=== PATIENT | male | born 1960 | race Caucasian/White ===

== ENCOUNTER 2020-05-02 03:19 | Inpatient (IN) | payer MEDICARE, SELFPAY ==
[2020-05-02] VITALS (12 sets, daily range): BP systolic 121–176; BP diastolic 70–90; PULSE 68–96; RESP 16–20; TEMP 36.8–37.1; O2SAT 88–96; BMI 37.8
--- NOTE | 2020-05-02 03:24 | ED_ITS ---
HPI - Abdominal Pain General: Chief Complaint: Abdominal Pain Stated Complaint: ABDOMINAL PAIN/ NAUSEA Time Seen by Provider: 05/02/20 03:23 Source: patient, family and RN notes reviewed Limitations: no limitations History of Present Illness: HPI narrative: This patient is a 59-year-old male with a long history of COPD presents to the emergency department planing of abdominal pain and discomfort. Patient states he started having some nausea and vomiting tonight. Patient states he has been constipated for the past several days and unable to move his bowels. Patient does have a history of alcoholism and chronic pancreatitis. Patient states he normally drinks an ounce to 2 ounces of vodka at least cut way down from his previous drinking episodes. Patient does wear oxygen at 3 L/min by nasal cannula chronically. Patient denies any chest pain. Will do medical evaluation treat as needed MD elicited complaint: abdominal pain and flank pain Pertinent past history: none Onset (ago): day(s) (5) Pain Consistency: intermittent Location: L flank Severity: moderate Associated Symptoms: Reports nausea and vomiting; Denies chills, dysuria and fever(s) Review of Systems General: Reports: 10 or more systems reviewed and unremarkable except in HPI and below Const: Denies: fever(s) or chills Eyes: Denies: change in vision or blurry vision ENMT: Denies: throat pain, hoarseness or mouth pain Card: Denies: chest pain, palpitations, irregular heart rhythm, edema, swelling of feet/ankles or lightheadedness Resp: Denies: dyspnea, productive cough, non-productive cough, wheezing or pain on inspiration GI: Reports: abdominal pain, nausea and vomiting : Denies: dysuria Musc: Denies: neck pain, back pain, extremity pain, extremity swelling, joint pain, joint swelling, joint redness, joint warmth or limited range of motion Skin/Breast: Denies: rash, pruritus, erythema or skin tenderness Neuro: Denies: headache(s), numbness in extremities or weakness in extremities Psych: Denies: anxiety or depression PFSH ED PFSH: Family History Father Cancer CVD (cardiovascular disease) Mother CVD (cardiovascular disease) Hypertension Social History Smoking and tobacco status: current every day smoker cigarettes Years cigarettes smoked: 48 [ Other cigarette details: [id number] ] Quit status (tobacco): considering quitting Second hand smoke exposure: No Smoking risk assessment/counseling performed?: Yes Alcohol intake: current Alcohol intake frequency: holidays/special occasions only Desire information about alcohol rehabilitation?: No Counseling given: No Lives independently: Yes Household members: family Housing: House Marital status: Single service: No Current occupational status: disabled Pets and animals: Yes History of recent travel: No Current gender identity: Male Physical Exam 2 Const: COMMON NORMALS: no acute distress, average body habitus, patient oriented x3, no limitations, healthy appearing, alert and well nourished HENMT: COMMON NORMALS: normocephalic, atraumatic, external ears normal, EAC's normal, TM's normal bilaterally, Normal external nose present and Normal nasal mucous membranes and turbinates present HEAD & SCALP: normocephalic and atraumatic NOSE: Normal external nose present and Normal nasal mucous membranes and turbinates present EXTERNAL EAR: Yes external ears normal EXTERNAL AUDITORY CANAL: EAC's normal TYMPANIC MEMBRANE: TM's normal bilaterally Neck/C-Spine: COMMON NORMALS: full ROM, no lymphadenopathy, supple, no meningeal signs, no JVD, Thyroid normal and No carotid bruits THYROID: Thyroid normal Chest: COMMONS NORMALS: normal inspection of the chest, normal palpation of entire chest wall, normal inspection of the breasts and normal palpation of the breasts Breast/axilla inspection: Yes normal inspection of the breasts BREAST/AXILLA PALPATION: Yes normal palpation of the breasts Resp: COMMON NORMALS: normal respiratory effort, No retractions, No use of accessory muscles, clear to auscultation bilaterally and percussion normal AUSCULTATION: clear to auscultation bilaterally PERCUSSION: percussion normal Cardio: COMMON NORMALS: no JVD, regular rate, regular rhythm, S1 normal heart sound present, S2 normal heart sound present, No gallops present (Cardio), No clicks present (Cardio), No murmurs present (Cardio), No rub (Cardio) and Peripheral pulses 2+ throughout RATE: regular rate RHYTHM: regular rhythm HEART SOUNDS: S1 normal heart sound present and S2 normal heart sound present PERIPHERAL PULSES: Peripheral pulses 2+ throughout GI: COMMON NORMALS: Normal to inspection, nondistended, normoactive bowel sounds present, Soft to palpation, non-tender, No hepatosplenomegaly present, no masses and no bruits PALPATION: Yes Soft to palpation and Yes No hepatosplenomegaly present : COMMON NORMALS: Yes no CVA tenderness BLADDER/KIDNEY EXAM: Yes no CVA tenderness Back/Pelvis: COMMON NORMALS: no CVA tenderness, thoracic and lumbar spine normal to inspection, no thoracic nor lumbar tenderness, thoraco-lumbar ROM normal and straight leg raise negative bilaterally Extremity: COMMON NORMALS: normal to inspection, full ROM, capillary refill normal, no joint enlargement, no clubbing, cyanosis or edema, no calf tenderness and no pedal edema Neuro: COMMON NORMALS: patient oriented x3 SENSORIUM/ORIENTATION: Yes alert MENINGEAL SIGNS: Yes no meningeal signs Course Reevaluation(s): Reevaluation #1: Patient is much improved with pain. Patient's lipase came back at 979. I did discuss with Dr. Moran. She is accepted this patient for admission. Patient states understanding IV fluids will continue to run 150 an hour. Patient be kept n.p.o. Time: 04:48 Vital Signs: Vital signs: Vital Signs Temperature 98.3 F 05/02/20 03:22 Pulse Rate 84 05/02/20 04:28 Respiratory Rate 17 05/02/20 04:28 Blood Pressure 164/81 05/02/20 04:28 Pulse Oximetry 96 05/02/20 04:28 MDM - Abdominal Pain Differential Diagnosis: Differential diagnosis abdominal pain: Likely abdominal pain, acute appendicitis, calculus of kidney and small bowel obstruction Medical Records: Attestation: I reviewed the patient's medical records. Lab Data: Attestation: I reviewed the patient's lab results. Labs: Lab Results 05/02/20 05/02/20 05/02/20 Range/Units 03:35 03:35 03:35 WBC 8.9 (4.0-10.0) 10^3/ uL RBC 4.81 (4.1-5.3) 10^6/u L Hgb 15.6 (11.7-16.6) g/dL Hct 46.6 (42.0-52.0) % MCV 96.9 H (80-94) fL MCH 32.4 (28.0-34.0) pg MCHC 33.5 (30.0-36.0) g/dL RDW 12.6 (12.1-15.1) % Plt Count 137 (130-400) 10^3/c mm MPV 10.5 H (7.4-10.4) fL Neut % (Auto) 75.8 % Lymph % (Auto) 14.3 % Mccracken % (Auto) 7.6 % Eos % (Auto) 1.7 % Baso % (Auto) 0.3 % Neut # (Auto) 6.73 (1.8-7.7) 10^3/u L Lymph # (Auto) 1.3 (0.8-4.8) 10^3/u L Mccracken # (Auto) 0.7 (0.2-0.9) 10^3/u L Eos # (Auto) 0.2 (0.0-0.8) 10^3/u L Baso # (Auto) 0.0 (0.0-0.1) 10^3/u L Nucleated RBC % (a uto) 0 % Nucleated RBCs # 0.0 /100WBC PT 13.90 (12.1-14.9) SECO NDS INR 1.04 (0.8-1.2) APTT 31.1 (23.9-36.7) SECO NDS Sodium 134 L (136-145) mmol/L Potassium 4.3 (3.5-5.1) mmol/L Chloride 93 L (98-107) mmol/L Carbon Dioxide 33 H (22-29) mmol/L Anion Gap 12.3 (5-19) BUN 12 (6-20) mg/dL Creatinine 0.6 L (0.7-1.2) mg/dL GFR Calculation 138.4 H (90-130) mL/min Glucose 265 H (65-115) mg/dL Calculated Osmolal ity 287 (285-295) mOsm/k g Calcium 9.1 (8.5-10.5) mg/dL Total Bilirubin 0.3 (0.15-1.2) mg/dL AST 14 (0-40) U/L ALT 9 (0-41) U/L Alkaline Phosphata se 84 (40-130) IU/L Troponin T Gen 5 n g/L (0-15) ng/L NT-Pro-B Natriuret Pep 825 H (0-125) pg/mL Total Protein 6.9 (6.6-8.7) g/dL Albumin 4.2 (3.5-5.2) g/dL Globulin 2.7 (1.3-4.6) g/dL Lipase 979 H (13-60) U/L / Range/Units 03:35 WBC (4.0-10.0) 10^3/ uL RBC (4.1-5.3) 10^6/u L Hgb (11.7-16.6) g/dL Hct (42.0-52.0) % MCV (80-94) fL MCH (28.0-34.0) pg MCHC (30.0-36.0) g/dL RDW (12.1-15.1) % Plt Count (130-400) 10^3/c mm MPV (7.4-10.4) fL Neut % (Auto) % Lymph % (Auto) % Mccracken % (Auto) % Eos % (Auto) % Baso % (Auto) % Neut # (Auto) (1.8-7.7) 10^3/u L Lymph # (Auto) (0.8-4.8) 10^3/u L Mccracken # (Auto) (0.2-0.9) 10^3/u L Eos # (Auto) (0.0-0.8) 10^3/u L Baso # (Auto) (0.0-0.1) 10^3/u L Nucleated RBC % (a uto) % Nucleated RBCs # /100WBC PT (12.1-14.9) SECO NDS INR (0.8-1.2) APTT (23.9-36.7) SECO NDS Sodium (136-145) mmol/L Potassium (3.5-5.1) mmol/L Chloride (98-107) mmol/L Carbon Dioxide (22-29) mmol/L Anion Gap (5-19) BUN (6-20) mg/dL Creatinine (0.7-1.2) mg/dL GFR Calculation (90-130) mL/min Glucose (65-115) mg/dL Calculated Osmolal ity (285-295) mOsm/k g Calcium (8.5-10.5) mg/dL Total Bilirubin (0.15-1.2) mg/dL AST (0-40) U/L ALT (0-41) U/L Alkaline Phosphata se (40-130) IU/L Troponin T Gen 5 n g/L 25 H (0-15) ng/L NT-Pro-B Natriuret Pep (0-125) pg/mL Total Protein (6.6-8.7) g/dL Albumin (3.5-5.2) g/dL Globulin (1.3-4.6) g/dL Lipase (13-60) U/L Imaging Data ^: CT Abd/Pel: Attestation: I personally reviewed and interpreted this imaging study as follows: My impression: Awaiting official radiologic report. Dr. Moran will follow up. EKG Data ^: EKG 1: Attestation: I personally reviewed and interpreted this EKG as follows: EKG interpretation date: 05/02/20 EKG interpretation time: 03:37 Prior EKG tracings: not available for review Interpretation: Sinus rhythm with a left bundle branch block heart rate 84. Discharge Plan Discharge Patient Disposition: Placed in Observation Clinical Impression: Acute pancreatitis, COPD (chronic obstructive pulmonary disease) Coding Level of Care Code ED Wire Coater for Chg Fwd Exam Comprehensive
--- NOTE | 2020-05-02 03:33 | ECG_ITS ---
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 Measurements Intervals [place] Rate: 84 P: 60 KS: 209 QRS: 3 QRSD: 197 T: 93 QT: 436 QTc: 518 Interpretive Statements SINUS RHYTHM LEFT BUNDLE BRANCH BLOCK [120+ ms QRS DURATION, 80+ ms Q/S IN V1/V2, 85+ ms R IN I/aVL/V5/V6] No previous ECG available for comparison Electronically Signed On 05-03-2020 7:36:31 CDT by Prachi Sheldon M.D. [id number]
[2020-05-02] MEDS: sodium chloride 0.9% 500 ML IV (03:34)
[2020-05-02] MEDS: ondansetron 2 mg/ML SDV 2 mL 4 MG IVP (03:36)
[2020-05-02 03:50] LABS: Basophils % 0.3 %; Eosinophils # 0.2 10^3/uL (0.0-0.8); Eosinophils % 1.7 %; Hematocrit 46.6 % (42.0-52.0); Hemoglobin 15.6 g/dL (11.7-16.6); Lymphocytes # 1.3 10^3/uL (0.8-4.8); Lymphocytes % 14.3 %; Mean Corpuscular HGB Conc 33.5 g/dL (30.0-36.0); Mean Corpuscular Hemoglobin 32.4 pg (28.0-34.0); Mean Corpuscular Volume 96.9 fL (80-94); Mean Platelet Volume 10.5 fL (7.4-10.4); Monocytes # 0.7 10^3/uL (0.2-0.9); Monocytes % 7.6 %; Neutrophils # 6.73 10^3/uL (1.8-7.7); Neutrophils % 75.8 %; Nucleated Red Blood Cells % 0 %; Platelet Count 137 10^3/cmm (130-400); Red Blood Count 4.81 10^6/uL (4.1-5.3); Red Cell Distribution Width 12.6 % (12.1-15.1); White Blood Count 8.9 10^3/uL (4.0-10.0)
--- NOTE | 2020-05-02 03:57 | CTR_ITS ---
PROCEDURE INFORMATION: Exam: CT Abdomen And Pelvis Without Contrast Exam date and time: 05/02/2020 4:08 AM Age: 59 years old Clinical indication: Abdominal pain; Generalized; Additional info: Flank pain TECHNIQUE: Imaging protocol: Computed tomography of the abdomen and pelvis without contrast. Radiation optimization: All CT scans at this facility use at least one of these dose optimization techniques: automated exposure control; mA and/or kV adjustment per patient size (includes targeted exams where dose is matched to clinical indication); or iterative reconstruction. COMPARISON: No relevant prior studies available. RADIATION DOSE METRICS: Total DLP (mGy-cm): 1334.07 FINDINGS: Liver: No mass. Gallbladder and bile ducts: No calcified stones. No ductal dilation. Pancreas: Peripancreatic stranding around the pancreatic head. Spleen: No splenomegaly. Adrenal glands: Normal. No mass. Kidneys and ureters: No hydronephrosis. Stomach and bowel: There is mild wall thickening of the duodenum which may be due to reactive inflammation. No dilated bowel loops. No high-grade obstruction. Appendix: No evidence of appendicitis. Intraperitoneal space: No free air. No significant fluid collection. Vasculature: Atherosclerotic changes of the aorta. Lymph nodes: No enlarged lymph nodes. Urinary bladder: Unremarkable as visualized. Reproductive: Unremarkable as visualized. Bones/joints: Unremarkable. No acute fracture. Soft tissues: Previous hernia repair. CT/CT abdomen pelvis con [id number] IMPRESSION: 1. Peripancreatic stranding around the pancreatic head. There is mild wall thickening of the duodenum this level which may be due to reactive inflammation. Correlation with pancreatic enzymes recommended to exclude pancreatitis. Follow-up after treatment may be helpful to document resolution. 2. Slightly nodular contour of the liver which can be seen with cirrhosis, correlate with LFTs. Radiation Dose CTDIVOL = (mGy): DLP = 1334.07 (mGy-cm)
[2020-05-02] MEDS: morphine 4 mg/mL SDV 1 mL IVP (04:02)
[2020-05-02 04:11] LABS: Troponin T (5th) Once 25 ng/L (0-15)
[2020-05-02 04:20] LABS: Alanine Aminotransferase 9 U/L (0-41); Albumin Level 4.2 g/dL (3.5-5.2); Alkaline Phosphatase 84 IU/L (40-130); Anion Gap 12.3 (5-19); Aspartate Amino Transferase 14 U/L (0-40); Blood Urea Nitrogen 12 mg/dL (6-20); Calcium 9.1 mg/dL (8.5-10.5); Carbon Dioxide 33 mmol/L (22-29); Chloride 93 mmol/L (98-107); Globulin 2.7 g/dL (1.3-4.6); Glomerular Filtration Rate 138.4 mL/min (90-130); Glucose 265 mg/dL (65-115); NT Pro B Type Natriuretic Pept 825 pg/mL (0-125); Osmolality Calculated 287 mOsm/kg (285-295); Potassium 4.3 mmol/L (3.5-5.1); Sodium 134 mmol/L (136-145); Total Bilirubin 0.3 mg/dL (0.15-1.2); Total Protein 6.9 g/dL (6.6-8.7)
[2020-05-02 04:27] LABS: INR 1.04 (0.8-1.2)
[2020-05-02 04:28] LABS: Partial Thromboplastin Time 31.1 SECONDS (23.9-36.7)
[2020-05-02 04:38] LABS: Lipase 979 U/L (13-60)
[2020-05-02] MEDS: sodium chloride 0.9% 1,000 ML 150 ML IV (04:56)
[2020-05-02 05:41] LABS: Glucose Urine UA 4+ (Normal); Protein Urine 1+ (Negative); Specific Gravity, Urine 1.015 (1.005-1.030); Urine Appearance Clear (CLEAR); Urine Color Yellow (Yellow); pH Urine 6 (5-7)
[2020-05-02 05:42] LABS: Add Urine Microscopic? YES; Bilirubin Urine Neg (Negative); Blood Urine Neg (Negative); Ketones Urine 1+ (Negative); Leukocyte Esterase Urine Negative (Negative); Nitrate Urine Negative (Negative); RBC Urine RARE /hpf (0-2); Squamous Epithelial Cell Urine 0-4 /hpf (0-5); Sulfosalicylic Acid Urine Negative (Negative); Urobilinogen Urine Norm (Negative)
[2020-05-02 05:43] LABS: Add Urine Culture? No; Bacteria Urine TRACE /hpf
--- NOTE | 2020-05-02 06:14 | P.HP_ITS ---
Providers/Chief Complaint Admitting Physician: Denae Moran MD Primary Care Provider: Thomas Evangelista Chief Complaint: ABDOMINAL PAIN/ NAUSEA History of Present Illness Amanuel Restrepo is a 59 year old male who presented to the emergency room with chief complaint of abdominal pain. Symptoms have been going on for several days. He has had some dry heaves but no vomiting otherwise. Denies any diarrhea. Last bowel movement was several days ago. He has a history of previous episode of pancreatitis but he actually thought that he may be having issues with an abdominal hernia symptoms. He previously drank heavily but denies regular use for some time. Will have a drink every now and then. None recently. No reports of fever, difficulty urinating, chest pain or increased shortness of breath from baseline. Work-up in the emergency room revealed an elevated lipase at [address] of the abdomen and pelvis demonstrating some stranding around the pancreas. He received some IV fluids and pain medicine in the emergency room and is being admitted for continued care. No recent medication changes to report. Review of Systems Const: Reports: change in appetite; Denies: fever(s) or chills Eyes: Denies: change in vision ENMT: Reports: dry mouth; Denies: throat pain or nasal congestion Card: Denies: chest pain, palpitations or edema Resp: Reports: dyspnea (Chronic), productive cough (Chronic) and wheezing (Sometimes); Denies: non-productive cough GI: Reports: abdominal pain, nausea (With dry heaves), early satiety and constipation; Denies: vomiting, hematemesis, diarrhea, hematochezia or melena : Denies: difficulty urinating or hematuria Musc: Reports: back pain Skin/Breast: Reports: lesions (Left lower extremity); Denies: pruritus Neuro: Denies: weakness in extremities or dizziness Psych: Denies: anxiety or depression Elliot/Lymph: Denies: easy bruising or easy bleeding Medications/Allergies Home Medications Medication Instructions Recorded Confirmed Last Taken Type albuterol sulfate 2.5 mg INHALATION Q4H PRN 02/24/20 04/17/20 Unknown History albuterol sulfate 90 mcg/actuation 2 puff INHALATION QID PRN 02/24/20 04/17/20 Unknown History aerosol inhaler ascorbic acid (vitamin C) 1,000 mg 2 g PO Q6H tab 02/24/20 04/17/20 Unknown History tablet atorvastatin 20 mg tablet 20 mg PO DAILY 02/24/20 04/17/20 Unknown History cyanocobalamin (vitamin B-12) 500 1,000 mcg PO DAILY tab 02/24/20 04/17/20 Unknown History mcg tablet dapagliflozin 10 mg tablet 10 mg PO DAILY 02/24/20 04/17/20 Unknown History insulin glargine 100 unit/mL (3 45 unit SUBCUT .bedtime ml 02/24/20 04/17/20 Unknown History mL) subcutaneous pen levothyroxine 200 mcg capsule 200 mcg PO DAILY 02/24/20 04/17/20 Unknown History lisinopril 20 1 tab PO DAILY 02/24/20 04/17/20 Unknown History mg-hydrochlorothiazide 12.5 mg tablet metformin 500 mg tablet 1,000 mg PO BID tab 02/24/20 04/17/20 Unknown History pioglitazone 45 mg tablet 45 mg PO DAILY 02/24/20 04/17/20 Unknown History tiotropium 2.5 mcg-olodaterol 2.5 2 puff INHALATION DAILY #4 g 04/17/20 04/17/20 Unknown Rx mcg/actuation mist for inhalation Allergies Allergy/AdvReac Type Severity Reaction Status Date / Time dexamethasone AdvReac ADR-Swelling Verified 04/17/20 14:31 of the Eye tobramycin AdvReac ADR-Swelling Verified 04/17/20 14:31 of the Eye PFSH Acute PFSH: Medical History (Updated 05/02/20 @ 07:38 by Denae Moran MD) COPD (chronic obstructive pulmonary disease) Diabetes mellitus Essential hypertension Hyperlipidemia Hypothyroidism Left leg swelling On home oxygen therapy 3L bnc MARTITA (obstructive sleep apnea) On CPAP Pancreatitis Surgical History (Updated 05/02/20 @ 06:31 by Denae Moran MD) History of arthroscopy of knee History of hernia repair History of vasectomy Family History Father Cancer CVD (cardiovascular disease) Mother CVD (cardiovascular disease) Hypertension Social History (Updated 05/02/20 @ 06:36 by Denae Moran MD) Smoking and tobacco status: current every day smoker cigarettes Years cigarettes smoked: 48 [ Other cigarette details: down to 1/2 ppd from 2+ ppd ] Quit status (tobacco): considering quitting Second hand smoke exposure: No Alcohol intake: current Alcohol intake frequency: holidays/special occasions only Alcohol use comment: history of heavy alcohol use in past Lives independently: Yes Household members: family Housing: House Marital status: Single service: No Current occupational status: disabled Pets and animals: Yes History of recent travel: No Current gender identity: Male Vitals/I&O/Wt Last Vital Signs Temp 98.3 F 05/02/20 05:45 Pulse 79 05/02/20 05:45 Resp 18 05/02/20 05:45 BP 143/76 05/02/20 05:45 Pulse Ox 95 05/02/20 05:45 05/01/20 05/01/20 05/02/20 14:59 22:59 06:59 Intake Total 500 / 500 Balance 500 / 500 Weight last 48 hrs Weight 116.12 kg Physical Exam Const: OTHER: Alert, oriented x3, cooperative HENMT: OTHER: Normocephalic atraumatic, moist mucus membranes, some nasal rhinorrhea, poor dentition Eye: OTHER: Pupils equally round and reactive to light, extraocular movements intact Neck/C-Spine: OTHER: Large but supple Resp: OTHER: Scattered wheezes, no rales or rhonchi, no accessory muscle use Cardio: OTHER: Regular rate and rhythm, no murmurs gallops or rubs. 2+ upper extremity pulses, 1+ lower extremity. GI: OTHER: Abdomen soft, rounded, tender to palpation most in the left upper quadrant but also on the right upper quadrant. No rebound or guarding noted. Positive bowel sounds. Extremity: NARRATIVE EXTREMITY EXAM: Left lower extremity is greater in diameter than right lower extremity with some chronic stasis changes noted. 1+ pitting edema to the left lower extremity versus the right lower extremity. Neuro: OTHER: Face symmetric, speech clear, moves all extremities Psych: OTHER: Normal affect Skin: OTHER: Left lower extremity with evidence of stasis dermatitis. Erythema noted but without any warmth. Right lower extremity with dry skin without the degree of stasis dermatitis noted on the left. 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 insulin use: with alf use Diabetes mellitus complication status: with skin complications Diabetes mellitus complication detail: with other skin complication Qualified Code(s): E11.628 - Type 2 diabetes mellitus with other skin complications; 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 (3) Left bundle branch block: No prior EKGs for comparison Status: Acute (4) Essential hypertension: Appears well controlled currently Status: Chronic (5) COPD (chronic obstructive pulmonary disease): Not presently acute Status: Chronic Qualifiers: COPD type: emphysema Emphysema type: unspecified Qualified Code(s): J43.9 - Emphysema, unspecified (6) MARTITA (obstructive sleep apnea): Chronically on CPAP Status: Chronic (7) Hyperlipidemia: Chronically on statin Status: Chronic Qualifiers: Hyperlipidemia type: unspecified Qualified Code(s): E78.5 - Hyperlipidemia, unspecified (8) Hypothyroidism: Status: Chronic Qualifiers: Hypothyroidism type: acquired Qualified Code(s): E03.9 - Hypothyroidism, unspecified (9) Left leg swelling: Patient reports chronic in nature without recent change, has associated dermatitis Status: Chronic (10) Nicotine dependence, cigarettes, with other nicotine-induced disorders: Has significantly cut down on amount of smoking Status: Chronic (11) On home oxygen therapy: 3 L by nasal cannula continuous Status: Chronic Additional A&P Information Observation admission presently IV fluids Recheck laboratory studies in the morning Clear liquid diet Sliding scale insulin currently Check hemoglobin A1c in the morning Holding oral Metformin, pioglitazone and dapagliflozin Currently holding home lisinopril/HCTZ and simvastatin Continue albuterol Continue oral levothyroxine CPAP at night with nasal mask Continue home oxygen Pepcid for GI prophylaxis Lovenox for DVT prophylaxis Pain control as needed Stool softeners Nicotine patch if needed Plans were discussed with patient and he was given opportunity to ask questions Attestations Medical Necessity Statement*: Currently anticipated stay less than 2 midnights in a gentleman with a history of alcoholic pancreatitis presenting with abdominal pain, nausea and found to have elevated lipase and findings on CT imaging suggestive of acute pancreatitis. He is already feeling better with fluids and pain medications administered in the emergency room. We will continue IV fluids and monitoring for any further change. Other issues and plans as noted above. At significant risk for continued decline without aggressive intervention as described. 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 insulin use: with quality assurance/r&d lab technician use Diabetes mellitus complication status: with skin complications Diabetes mellitus complication detail: with other skin complication Left bundle branch block I44.7 Essential hypertension I10 COPD (chronic obstructive pulmonary disease) J43.9 COPD type: emphysema Emphysema type: unspecified MARTITA (obstructive sleep apnea) G47.33 Hyperlipidemia E78.5 Hyperlipidemia type: unspecified Hypothyroidism E03.9 Hypothyroidism type: acquired Left leg swelling M79.89 Nicotine dependence, cigarettes, with other nicotine-induced disorders F17.218 On home oxygen therapy Z99.81
--- NOTE | 2020-05-02 07:27 | PC.NURSE ---
AM ASSESSMENT NOTE NOTED PT TO HAVE VERY POOR HYGIENE - FOUL ODOR IN GENERAL FROM PT - DIRT UNDERNEATH ALL FINGERNAILS - STEWART FEET NOTED TO HAVE HARD CALLOUSED AREAS WITH DIRT NOTED - PT STATES HE LIVES AT HOME
[2020-05-02 07:55] LABS: Glucose Point of Care 213 mg/dL (70-110)
--- NOTE | 2020-05-02 08:35 | PC.PHAR ---
Addendum entered by Renay Cristobal 05/02/20 08:41: pt states his dr dced the farxiga 2-3 months ago Original Note: pt states he takes care of his own medications-pt states he had a build up on some of his medications so he hasnt filled for a while-pt states he dced his actos 2-3 months ago-pt states he also takes metformin 1000mg daily-rx last filled on 06/08/19 30d/s for 1000mg bid-pt states he hasnt picked up his stiolto respimat yet rx written on 04/17/20- ext med history shows pts levothyroxine, lantus, and lipitor last filled on 02/24/20-pt states he is still taking lisinopril-hctz ext med history shows last filled on 10/20/19 90d/s-pt states he may take his vitamin b12 two to three times a week
[2020-05-02] MEDS: sodium chlor 0.9% + KCl 20 mEq 20 MEQ/1,000 ML BAG 100 MEQ IV ×2 (08:37→18:02)
[2020-05-02] MEDS: enoxaparin 40 mg/0.4 mL Syringe SUBCUT (08:38)
[2020-05-02] MEDS: sennosides-docusate Tablet 2 TAB PO ×2 (08:39→17:03)
[2020-05-02] MEDS: famotidine 20 mg/2 mL INJ IVP ×2 (08:39→18:02)
[2020-05-02] MEDS: HYDROcodone-acetaminophen 5-325 mg Tablet 1 TAB PO ×2 (08:46→18:42)
[2020-05-02 09:03] LABS: Troponin(5th) Baseline 20 ng/L (0-15)
--- NOTE | 2020-05-02 09:35 | ECG_ITS ---
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 Measurements Intervals [place] Rate: 68 P: 43 RI: 172 QRS: 4 QRSD: 192 T: 106 QT: 460 QTc: 490 Interpretive Statements SINUS RHYTHM LEFT BUNDLE BRANCH BLOCK [120+ ms QRS DURATION, 80+ ms Q/S IN V1/V2, 85+ ms R IN I/aVL/V5/V6] Compared to ECG 05/02/2020 03:37:08 No significant changes Electronically Signed On 05-03-2020 7:48:43 CDT by Prachi Sheldon M.D. [id number]
--- NOTE | 2020-05-02 09:53 | PC.CHAP ---
Pastoral Care Encounter/Spiritual Assessment Type of Contact [] Declined rug repairer visit [] Patient/Family/Request visit [] Outpatient visit [] Follow-up visit [] Physician referral [] Code/Alert [x] Routine visit [] Staff referral [] Actively dying [] Patient sleeping [] Family support [] [] Out of room [] Palliative care [] [] Receiving care in room [] Pre-surgical visit [] Trauma [] Long length of stay [] ICU visit [] Other: Relational/Emotional Strength [] Patient feels connected with others/family/visitors/staff [] Distress [] Loneliness/isolation [] Abandonment Spirituality of Patient [] Person of [place] [] Attends Episcopal of their [place] [] Believes in Prayer [] Reads Bible or Jain materials [x] There are Spiritual issues to be addressed [employer] 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 Interventions [] Prayer [] Active listening [] Non-anxious presence [] Spiritual/emotional support [] Crisis/trauma care [] Spiritual counseling [] Bereavement support [] Provided bereavement packet [] Provided Bible/devotional materials [] Provided toy/stuffed animal, coloring book to patient or family member [] Provided Communion [] Anointing/[place]ove [] Salvation [x] Completed spiritual assessment [] Other: Impact on Illness or Injury [] Angry [] Fearful [] Anxious [] Often cries [] Exhaustion [] Unable to work [] Unable to attend congregation [] Unable to walk/stand [] Unable to read [] Unable to drive [] Unable to eat/drink [] Unable to sleep [] Unable to be with family [] Patient intubated [] Other: Summary refused prayer Time spent with patient
[2020-05-02 10:57] LABS: Glucose Point of Care 205 mg/dL (70-110)
[2020-05-02 11:14] LABS: Troponin 5 2HR 21.48 ng/L (0-15); Troponin 5 2HR Delta 1.48 ABS# (0-10)
--- NOTE | 2020-05-02 13:35 | ECG_ITS ---
[facility] ED Test Date: 2020-05-02 Pat Name: Amanuel Restrepo Department: Room: 277 Gender: Male Personnel Recruiter: : 1960 Requested By: Denae Moran Order Number: [id number] Ish MD: Prachi Sheldon M.D. Measurements Intervals [place] Rate: 66 P: 40 NE: 160 QRS: 6 QRSD: 194 T: 205 QT: 478 QTc: 503 Interpretive Statements SINUS RHYTHM LEFT BUNDLE BRANCH BLOCK [120+ ms QRS DURATION, 80+ ms Q/S IN V1/V2, 85+ ms R IN I/aVL/V5/V6] Compared to ECG 05/02/2020 09:29:31 No significant changes Electronically Signed On 05-03-2020 7:46:18 CDT by Prachi Sheldon M.D. [id number]
--- NOTE | 2020-05-02 13:45 | PM.PN ---
Subjective Subjective: Interval history: Patient was seen and examined this morning.He is still complaining of generalized abdominal pain as well as nausea.Says he is not ready to advance his diet. His other vitals and labs have been reviewed. Medications: Reviewed: Yes Vitals/I&O/Wt Last Vital Signs Temp 98.3 F 05/02/20 11:17 Pulse 72 05/02/20 11:17 Resp 18 05/02/20 11:17 BP 126/72 05/02/20 11:17 Pulse Ox 95 05/02/20 11:17 05/01/20 05/02/20 05/02/20 22:59 06:59 14:59 Intake Total 500 / 500 120 / 120 Output Total 550 / 550 Balance 500 / 500 -430 / -430 Weight last 48 hrs Weight 116.12 kg Physical Exam Const: COMMON NORMALS: patient oriented x3 HENMT: COMMON NORMALS: normocephalic and atraumatic HEAD & SCALP: normocephalic and atraumatic Resp: COMMON NORMALS: clear to auscultation bilaterally EFFORT & INSPECTION: Yes symmetric chest movement AUSCULTATION: clear to auscultation bilaterally Cardio: COMMON NORMALS: regular rate, regular rhythm, S1 normal heart sound present, S2 normal heart sound present, No gallops present (Cardio), No murmurs present (Cardio), No rub (Cardio) and Peripheral pulses 2+ throughout RATE: regular rate RHYTHM: regular rhythm HEART SOUNDS: S1 normal heart sound present and S2 normal heart sound present PERIPHERAL PULSES: Peripheral pulses 2+ throughout GI: COMMON NORMALS: Normal to inspection, nondistended, normoactive bowel sounds present AUSCULTATION: Yes normoactive bowel sounds RECTAL EXAM: Yes deferred OTHER: generalized abdominal tenderness Present no guarding or rigidity. Extremity: COMMON NORMALS: no clubbing, cyanosis or edema and no pedal edema Neuro: COMMON NORMALS: patient oriented x3 Data : 05/02/20 03:35 05/02/20 03:35 A&P Assessment and plan (1) Acute pancreatitis: Status: Acute Qualifiers: Acute pancreatitis complication: no infection or necrosis Pancreatitis type: alcohol induced Qualified Code(s): K85.20 - Alcohol induced acute pancreatitis without necrosis or infection (2) Diabetes mellitus: Type II, insulin requiring Status: Chronic Qualifiers: Diabetes mellitus type: type 2 Diabetes mellitus terminal gauger supervisor insulin use: with terminal gauger supervisor use Diabetes mellitus complication status: with skin complications Diabetes mellitus complication detail: with other skin complication Qualified Code(s): E11.628 - Type 2 diabetes mellitus with other skin complications; Z79.4 - M[facility] (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 of insulin (3) Left bundle branch block: No prior EKGs for comparison Status: Acute (4) Essential hypertension: Appears well controlled currently Status: Chronic (5) COPD (chronic obstructive pulmonary disease): Not presently acute Status: Chronic Qualifiers: COPD type: emphysema Emphysema type: unspecified Qualified Code(s): J43.9 - Emphysema, unspecified (6) MARTITA (obstructive sleep apnea): Chronically on CPAP Status: Chronic (7) Hyperlipidemia: Chronically on statin Status: Chronic Qualifiers: Hyperlipidemia type: unspecified Qualified Code(s): E78.5 - Hyperlipidemia, unspecified (8) Hypothyroidism: Status: Chronic Qualifiers: Hypothyroidism type: acquired Qualified Code(s): E03.9 - Hypothyroidism, unspecified (9) Left leg swelling: Patient reports chronic in nature without recent change, has associated dermatitis Status: Chronic (10) Nicotine dependence, cigarettes, with other nicotine-induced disorders: Has significantly cut down on amount of smoking Status: Chronic (11) On home oxygen therapy: 3 L by nasal cannula continuous Status: Chronic Additional A&P Information Ac Pancreatitis Continue IV fluids Clear liquid diet Sliding scale insulin currently Continue albuterol Continue oral levothyroxine CPAP at night with nasal mask Continue home oxygen Pepcid for GI prophylaxis Lovenox for DVT prophylaxis Pain control as needed Stool softeners Nicotine patch if needed Plans were discussed with patient and he was given opportunity to ask questions Attestations Medical Necessity Statement*: Patient needs to be in hospital for the management of acute Pancreatitis and the need for I.V Hydration. 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 [facility] Fwd Diagnoses Acute pancreatitis K85.20 Acute pancreatitis complication: no infection or necrosis Pancreatitis type: alcohol induced Diabetes mellitus E11.628; Z79.4 Diabetes mellitus type: type 2 Diabetes mellitus terminal gauger supervisor insulin use: with terminal gauger supervisor use Diabetes mellitus complication status: with skin complications Diabetes mellitus complication detail: with other skin complication Left bundle branch block I44.7 Essential hypertension I10 COPD (chronic obstructive pulmonary disease) J43.9 COPD type: emphysema Emphysema type: unspecified MARTITA (obstructive sleep apnea) G47.33 Hyperlipidemia E78.5 Hyperlipidemia type: unspecified Hypothyroidism E03.9 Hypothyroidism type: acquired Left leg swelling M79.89 Nicotine dependence, cigarettes, with other nicotine-induced disorders F17.218 On home oxygen therapy Z99.81
[2020-05-02 15:10] LABS: Troponin 5 6HR 23.36 ng/L (0-15); Troponin 5 6HR Delta 3.36 ng/L (0-12)
[2020-05-02 16:41] LABS: Glucose Point of Care 116 mg/dL (70-110)
[2020-05-02 20:48] LABS: Glucose Point of Care 140 mg/dL (70-110)
[2020-05-02] MEDS: insulin glargine 100 units/1 mL 10 UNIT SUBCUT (20:50)
[2020-05-02] MEDS: acetaminophen 325 mg Tablet 650 MG PO (20:55)
[2020-05-03] VITALS (8 sets, daily range): BP systolic 116–150; BP diastolic 60–81; PULSE 64–77; RESP 18; TEMP 36.6–37.4; O2SAT 92–96
[2020-05-03] MEDS: HYDROcodone-acetaminophen 5-325 mg Tablet 1 TAB PO ×3 (01:09→22:11)
[2020-05-03] MEDS: sodium chlor 0.9% + KCl 20 mEq 20 MEQ/1,000 ML BAG 100 MEQ IV ×3 (03:41→22:13)
[2020-05-03 05:49] LABS: Basophils % 0.4 %; Eosinophils # 0.2 10^3/uL (0.0-0.8); Hematocrit 41.7 % (42.0-52.0); Hemoglobin 13.4 g/dL (11.7-16.6); Lymphocytes # 1.5 10^3/uL (0.8-4.8); Lymphocytes % 20.5 %; Mean Corpuscular HGB Conc 32.1 g/dL (30.0-36.0); Mean Corpuscular Hemoglobin 32.8 pg (28.0-34.0); Mean Platelet Volume 10.6 fL (7.4-10.4); Monocytes # 0.8 10^3/uL (0.2-0.9); Monocytes % 10.5 %; Neutrophils # 4.86 10^3/uL (1.8-7.7); Neutrophils % 66.3 %; Nucleated Red Blood Cells % 0 %; Platelet Count 122 10^3/cmm (130-400); Red Blood Count 4.09 10^6/uL (4.1-5.3); Red Cell Distribution Width 12.8 % (12.1-15.1); White Blood Count 7.3 10^3/uL (4.0-10.0)
[2020-05-03] MEDS: famotidine 20 mg/2 mL INJ IVP ×2 (06:00→17:22)
[2020-05-03] MEDS: levothyroxine 200 mcg Tablet PO (06:10)
[2020-05-03 06:13] LABS: Alanine Aminotransferase 7 U/L (0-41); Albumin Level 3.3 g/dL (3.5-5.2); Alkaline Phosphatase 58 IU/L (40-130); Blood Urea Nitrogen 10 mg/dL (6-20); Calcium 8.7 mg/dL (8.5-10.5); Carbon Dioxide 34 mmol/L (22-29); Glomerular Filtration Rate 115.8 mL/min (90-130); Glucose 127 mg/dL (65-115); Osmolality Calculated 277 mOsm/kg (285-295); Sodium 133 mmol/L (136-145); Total Bilirubin 0.4 mg/dL (0.15-1.2); Total Protein 6.3 g/dL (6.6-8.7)
[2020-05-03 06:16] LABS: Aspartate Amino Transferase 14 U/L (0-40); Potassium 5.1 mmol/L (3.5-5.1)
[2020-05-03 06:17] LABS: Anion Gap 9.1 (5-19); Chloride 95 mmol/L (98-107); Lipase 85 U/L (13-60)
[2020-05-03 06:18] LABS: Magnesium 1.8 mg/dL (1.7-2.3); Phosphorus 3.4 mg/dL (2.5-4.5)
[2020-05-03] MEDS: enoxaparin 40 mg/0.4 mL Syringe SUBCUT (06:22)
[2020-05-03] MEDS: ondansetron 2 mg/ML SDV 2 mL 4 MG IVP ×2 (06:26→20:30)
[2020-05-03 06:46] LABS: Glucose Point of Care 115 mg/dL (70-110)
[2020-05-03 07:05] LABS: Estmated Average Glucose 246; Hemoglobin A1C 10.2 % (4.0-6.0)
[2020-05-03] MEDS: sennosides-docusate Tablet 2 TAB PO ×2 (08:47→17:22)
--- NOTE | 2020-05-03 10:34 | PC.NURSE ---
CHARGE NURSE CHARGE NURSE AT PTS SIDE WITH C/O DR - RESOLVING ISSUE WITH
[2020-05-03 10:45] LABS: Glucose Point of Care 135 mg/dL (70-110)
--- NOTE | 2020-05-03 11:33 | PM.PN ---
Subjective Subjective: Interval history: Patient was seen and examined this morning.He is still complaining of generalized abdominal pain as well as nausea.Says he is not ready to advance his diet. His other vitals and labs have been reviewed. Medications: Reviewed: Yes Vitals/I&O/Wt Last Vital Signs Temp 97.9 F 05/03/20 11:10 Pulse 72 05/03/20 11:10 Resp 18 05/03/20 11:10 BP 131/74 05/03/20 11:10 Pulse Ox 92 05/03/20 11:10 05/02/20 05/03/20 05/03/20 22:59 06:59 14:59 Intake Total 1061.667 / 2181.667 1190 / 3371.667 120 / 120 Output Total 490 / 1040 150 / 150 Balance 1061.667 / 1631.667 700 / 2331.667 -30 / -30 Weight last 48 hrs Weight 116.12 kg Physical Exam Const: COMMON NORMALS: patient oriented x3 HENMT: COMMON NORMALS: normocephalic and atraumatic HEAD & SCALP: normocephalic and atraumatic Resp: COMMON NORMALS: clear to auscultation bilaterally EFFORT & INSPECTION: Yes symmetric chest movement AUSCULTATION: clear to auscultation bilaterally Cardio: COMMON NORMALS: regular rate, regular rhythm, S1 normal heart sound present, S2 normal heart sound present, No gallops present (Cardio), No murmurs present (Cardio), No rub (Cardio) and Peripheral pulses 2+ throughout RATE: regular rate RHYTHM: regular rhythm HEART SOUNDS: S1 normal heart sound present and S2 normal heart sound present PERIPHERAL PULSES: Peripheral pulses 2+ throughout GI: COMMON NORMALS: Normal to inspection, nondistended, normoactive bowel sounds present AUSCULTATION: Yes normoactive bowel sounds RECTAL EXAM: Yes deferred OTHER: generalized abdominal tenderness Present no guarding or rigidity. Extremity: COMMON NORMALS: no clubbing, cyanosis or edema and no pedal edema Neuro: COMMON NORMALS: patient oriented x3 Data : 05/03/20 05:23 05/03/20 05:23 A&P Assessment and plan (1) Acute pancreatitis: Ac Pancreatitis Continue IV fluids Clear liquid diet Pain control Status: Acute Qualifiers: Acute pancreatitis complication: no infection or necrosis Pancreatitis type: alcohol induced Qualified Code(s): K85.20 - Alcohol induced acute pancreatitis without necrosis or infection (2) Diabetes mellitus: Type II, insulin requiring Status: Chronic Qualifiers: Diabetes mellitus type: type 2 Diabetes mellitus tax appraiser insulin use: with care home use Diabetes mellitus complication status: with skin complications Diabetes mellitus complication detail: with other skin complication Qualified Code(s): E11.628 - Type 2 diabetes mellitus with other skin complications; Z79.4 - slot machine key person (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 of insulin (3) Left bundle branch block: No prior EKGs for comparison Status: Acute (4) Essential hypertension: Appears well controlled currently Status: Chronic (5) COPD (chronic obstructive pulmonary disease): Not presently acute Status: Chronic Qualifiers: COPD type: emphysema Emphysema type: unspecified Qualified Code(s): J43.9 - Emphysema, unspecified (6) MARTITA (obstructive sleep apnea): Chronically on CPAP Status: Chronic (7) Hyperlipidemia: Chronically on statin Status: Chronic Qualifiers: Hyperlipidemia type: unspecified Qualified Code(s): E78.5 - Hyperlipidemia, unspecified (8) Hypothyroidism: Status: Chronic Qualifiers: Hypothyroidism type: acquired Qualified Code(s): E03.9 - Hypothyroidism, unspecified (9) Left leg swelling: Patient reports chronic in nature without recent change, has associated dermatitis Status: Chronic (10) Nicotine dependence, cigarettes, with other nicotine-induced disorders: Has significantly cut down on amount of smoking Status: Chronic (11) On home oxygen therapy: 3 L by nasal cannula continuous Status: Chronic Additional A&P Information Sliding scale insulin currently Continue albuterol Continue oral levothyroxine CPAP at night with nasal mask Continue home oxygen Pepcid for GI prophylaxis Lovenox for DVT prophylaxis Stool softeners Nicotine patch if needed Attestations Medical Necessity Statement*: Patient needs to be in hospital for management of acute pancreatitis. 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 [facility] Fwd Diagnoses Acute pancreatitis K85.20 Acute pancreatitis complication: no infection or necrosis Pancreatitis type: alcohol induced Diabetes mellitus E11.628; Z79.4 Diabetes mellitus type: type 2 Diabetes mellitus tax appraiser insulin use: with tax appraiser use Diabetes mellitus complication status: with skin complications Diabetes mellitus complication detail: with other skin complication Left bundle branch block I44.7 Essential hypertension I10 COPD (chronic obstructive pulmonary disease) J43.9 COPD type: emphysema Emphysema type: unspecified MARTITA (obstructive sleep apnea) G47.33 Hyperlipidemia E78.5 Hyperlipidemia type: unspecified Hypothyroidism E03.9 Hypothyroidism type: acquired Left leg swelling M79.89 Nicotine dependence, cigarettes, with other nicotine-induced disorders F17.218 On home oxygen therapy Z99.81
[2020-05-03] MEDS: acetaminophen 325 mg Tablet 650 MG PO (15:45)
[2020-05-03 16:53] LABS: Glucose Point of Care 103 mg/dL (70-110)
[2020-05-03 20:31] LABS: Glucose Point of Care 120 mg/dL (70-110)
[2020-05-03] MEDS: insulin glargine 100 units/1 mL 10 UNIT SUBCUT (22:04)
[2020-05-04] VITALS (12 sets, daily range): BP systolic 134–152; BP diastolic 76–87; PULSE 64–78; RESP 16–18; TEMP 36.3–37.2; O2SAT 93–98
[2020-05-04] MEDS: acetaminophen 325 mg Tablet 650 MG PO (03:09)
[2020-05-04] MEDS: famotidine 20 mg/2 mL INJ IVP (06:08)
[2020-05-04 06:40] LABS: Glucose Point of Care 245 mg/dL (70-110)
[2020-05-04] MEDS: enoxaparin 40 mg/0.4 mL Syringe SUBCUT (06:42)
[2020-05-04] MEDS: levothyroxine 200 mcg Tablet PO (06:42)
[2020-05-04] MEDS: sodium chlor 0.9% + KCl 20 mEq 20 MEQ/1,000 ML BAG 100 MEQ IV (08:08)
[2020-05-04] MEDS: sennosides-docusate Tablet 2 TAB PO (08:10)
[2020-05-04] MEDS: ondansetron 2 mg/ML SDV 2 mL 4 MG IVP ×2 (10:20→18:23)
[2020-05-04 11:19] LABS: Glucose Point of Care 83 mg/dL (70-110)
--- NOTE | 2020-05-04 12:12 | PM.PN ---
Subjective Subjective: Interval history: Patients abdominal pain is slightly improved, willing to try and eat advance diet. Was concerned about his umbilical hernia, contributing to the pain. Medications: Reviewed: Yes Vitals/I&O/Wt Last Vital Signs Temp 97.4 F L 05/04/20 12:00 Pulse 64 05/04/20 12:00 Resp 16 05/04/20 12:00 BP 135/80 05/04/20 12:00 Pulse Ox 96 05/04/20 12:00 05/03/20 05/04/20 05/04/20 22:59 06:59 14:59 Intake Total 1220 / 2553.333 1471.667 / 1471.667 Output Total 800 / 950 1150 / 2100 900 / 900 Balance 420 / 1603.333 -1150 / 453.333 571.667 / 571.667 Physical Exam Const: COMMON NORMALS: patient oriented x3 HENMT: COMMON NORMALS: normocephalic and atraumatic HEAD & SCALP: normocephalic and atraumatic Resp: COMMON NORMALS: clear to auscultation bilaterally EFFORT & INSPECTION: Yes symmetric chest movement AUSCULTATION: clear to auscultation bilaterally Cardio: COMMON NORMALS: regular rate, regular rhythm, S1 normal heart sound present, S2 normal heart sound present, No gallops present (Cardio), No murmurs present (Cardio), No rub (Cardio) and Peripheral pulses 2+ throughout RATE: regular rate RHYTHM: regular rhythm HEART SOUNDS: S1 normal heart sound present and S2 normal heart sound present PERIPHERAL PULSES: Peripheral pulses 2+ throughout GI: COMMON NORMALS: Normal to inspection, nondistended, normoactive bowel sounds present AUSCULTATION: Yes normoactive bowel sounds RECTAL EXAM: Yes deferred OTHER: generalized abdominal tenderness improved: no guarding or rigidity. Extremity: COMMON NORMALS: no clubbing, cyanosis or edema and no pedal edema Neuro: COMMON NORMALS: patient oriented x3 Data : 05/03/20 05:23 05/03/20 05:23 A&P Assessment and plan (1) Acute pancreatitis: Ac Pancreatitis Continue IV fluids Clear liquid diet. Advance diet as tolerated Pain control Status: Acute Qualifiers: Acute pancreatitis complication: no infection or necrosis Pancreatitis type: alcohol induced Qualified Code(s): K85.20 - Alcohol induced acute pancreatitis without necrosis or infection (2) Diabetes mellitus: Type II, insulin requiring Status: Chronic Qualifiers: Diabetes mellitus type: type 2 Diabetes mellitus intermediate insulin use: with training administrator use Diabetes mellitus complication status: with skin complications Diabetes mellitus complication detail: with other skin complication Qualified Code(s): E11.628 - Type 2 diabetes mellitus with other skin complications; Z79.4 - care home (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 of insulin (3) Left bundle branch block: No prior EKGs for comparison Status: Acute (4) Essential hypertension: Appears well controlled currently Status: Chronic (5) COPD (chronic obstructive pulmonary disease): Not presently acute Status: Chronic Qualifiers: COPD type: emphysema Emphysema type: unspecified Qualified Code(s): J43.9 - Emphysema, unspecified (6) MARTITA (obstructive sleep apnea): Chronically on CPAP Status: Chronic (7) Hyperlipidemia: Chronically on statin Status: Chronic Qualifiers: Hyperlipidemia type: unspecified Qualified Code(s): E78.5 - Hyperlipidemia, unspecified (8) Hypothyroidism: Status: Chronic Qualifiers: Hypothyroidism type: acquired Qualified Code(s): E03.9 - Hypothyroidism, unspecified (9) Left leg swelling: Patient reports chronic in nature without recent change, has associated dermatitis Status: Chronic (10) Nicotine dependence, cigarettes, with other nicotine-induced disorders: Has significantly cut down on amount of smoking Status: Chronic (11) On home oxygen therapy: 3 L by nasal cannula continuous Status: Chronic Additional A&P Information Sliding scale insulin currently Continue albuterol Continue oral levothyroxine CPAP at night with nasal mask Continue home oxygen Pepcid for GI prophylaxis Lovenox for DVT prophylaxis Stool softeners Nicotine patch if needed Attestations Medical Necessity Statement*: Patient needs to be in hospital for management of acute pancreatitis. Coding Level of Care Code Acute Plant Manager for [facility] Fwd Diagnoses Acute pancreatitis K85.20 Acute pancreatitis complication: no infection or necrosis Pancreatitis type: alcohol induced Diabetes mellitus E11.628; Z79.4 Diabetes mellitus type: type 2 Diabetes mellitus intermediate insulin use: with training administrator use Diabetes mellitus complication status: with skin complications Diabetes mellitus complication detail: with other skin complication Left bundle branch block I44.7 Essential hypertension I10 COPD (chronic obstructive pulmonary disease) J43.9 COPD type: emphysema Emphysema type: unspecified MARTITA (obstructive sleep apnea) G47.33 Hyperlipidemia E78.5 Hyperlipidemia type: unspecified Hypothyroidism E03.9 Hypothyroidism type: acquired Left leg swelling M79.89 Nicotine dependence, cigarettes, with other nicotine-induced disorders F17.218 On home oxygen therapy Z99.81
[2020-05-04] MEDS: HYDROcodone-acetaminophen 5-325 mg Tablet 1 TAB PO (13:09)
[2020-05-04] MEDS: morphine 4 mg/mL SDV 1 mL IVP ×2 (15:06→21:41)
[2020-05-04 17:25] LABS: Glucose Point of Care 106 mg/dL (70-110)
--- NOTE | 2020-05-04 18:59 | PC.NURSE ---
Report to Meghna CURTIS at this time.
[2020-05-04 20:43] LABS: Glucose Point of Care 158 mg/dL (70-110)
[2020-05-04] MEDS: famotidine 20 mg Tablet PO (21:41)
[2020-05-04] MEDS: insulin glargine 100 units/1 mL 10 UNIT SUBCUT (21:41)
[2020-05-04] MEDS: albuterol 8 gm MDI 2 PUFF INHALATION (22:25)
[2020-05-05] VITALS (10 sets, daily range): BP systolic 126–166; BP diastolic 71–85; PULSE 63–85; RESP 16–19; TEMP 36.4–36.9; O2SAT 91–96
[2020-05-05] MEDS: HYDROcodone-acetaminophen 5-325 mg Tablet 1 TAB PO (05:05)
[2020-05-05] MEDS: levothyroxine 200 mcg Tablet PO (05:05)
[2020-05-05 06:47] LABS: Glucose Point of Care 108 mg/dL (70-110)
[2020-05-05] MEDS: albuterol 8 gm MDI 2 PUFF INHALATION ×2 (08:45→21:36)
[2020-05-05] MEDS: enoxaparin 40 mg/0.4 mL Syringe SUBCUT (09:21)
[2020-05-05] MEDS: ondansetron 2 mg/ML SDV 2 mL 4 MG IVP ×2 (09:24→18:12)
--- NOTE | 2020-05-05 09:56 | PC.NURSE ---
Patient is requesting to be hooked back up to his fluids. Patient did eat breakfast but states that he is having nausea now. Patient did state that he was able to eat a snack overnight without nausea.
[2020-05-05] MEDS: sodium chloride 0.9% 1,000 ML 50 ML IV (10:35)
[2020-05-05 11:20] LABS: Glucose Point of Care 190 mg/dL (70-110)
--- NOTE | 2020-05-05 14:26 | PC.SOCIAL ---
*IMM UPDATE* construction quality control manager gave patient IMM update. Provided patient copy of page 2. 05/05/20 @ 0914 Initialed, dated, timed and placed in chart.
[2020-05-05 16:52] LABS: Glucose Point of Care 145 mg/dL (70-110)
--- NOTE | 2020-05-05 19:25 | PC.NURSE ---
Report to Meghna CURTIS at this time.
[2020-05-05 20:35] LABS: Glucose Point of Care 217 mg/dL (70-110)
--- NOTE | 2020-05-05 21:21 | P.PN_ITS ---
Subjective Subjective: Interval history: Patients abdominal pain is slightly improved, is intermittently trying to eat more regular foods. Medications: Reviewed: Yes Vitals/I&O/Wt Last Vital Signs Temp 97.6 F 05/05/20 19:30 Pulse 72 05/05/20 19:30 Resp 19 H 05/05/20 19:30 BP 166/85 05/05/20 19:30 Pulse Ox 96 05/05/20 19:30 05/05/20 05/05/20 05/05/20 06:59 14:59 22:59 Intake Total 260 / 260 140 / 400 Output Total 600 / 2800 1075 / 1075 Balance -600 / 391.667 -815 / -815 140 / -675 Physical Exam Const: COMMON NORMALS: patient oriented x3 HENMT: COMMON NORMALS: normocephalic and atraumatic HEAD & SCALP: normocephalic and atraumatic Resp: COMMON NORMALS: clear to auscultation bilaterally EFFORT & INSPECTION: Yes symmetric chest movement AUSCULTATION: clear to auscultation bilaterally Cardio: COMMON NORMALS: regular rate, regular rhythm, S1 normal heart sound present, S2 normal heart sound present, No gallops present (Cardio), No murmurs present (Cardio), No rub (Cardio) and Peripheral pulses 2+ throughout RATE: regular rate RHYTHM: regular rhythm HEART SOUNDS: S1 normal heart sound present and S2 normal heart sound present PERIPHERAL PULSES: Peripheral pulses 2+ throughout GI: COMMON NORMALS: Normal to inspection, nondistended, normoactive bowel sounds present AUSCULTATION: Yes normoactive bowel sounds RECTAL EXAM: Yes deferred OTHER: generalized abdominal tenderness improved: no guarding or rigidity. Extremity: COMMON NORMALS: no clubbing, cyanosis or edema and no pedal edema Neuro: COMMON NORMALS: patient oriented x3 Data : 05/03/20 05:23 05/03/20 05:23 A&P Assessment and plan (1) Acute pancreatitis: Ac Pancreatitis Continue IV fluids Clear liquid diet. 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 insulin use: with 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 truck driver use Diabetes mellitus complication status: with skin complications Diabetes mellitus complication detail: with other skin complication Qualified Code(s): E11.628 - Type 2 diabetes mellitus with other skin complications; Z79.4 - ad terminal makeup operator (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 of insulin (3) Left bundle branch block: No prior EKGs for comparison Status: Acute (4) Essential hypertension: Appears well controlled currently Status: Chronic (5) COPD (chronic obstructive pulmonary disease): Not presently acute Status: Chronic Qualifiers: COPD type: emphysema Emphysema type: unspecified Qualified Code(s): J43.9 - Emphysema, unspecified (6) MARTITA (obstructive sleep apnea): Chronically on CPAP Status: Chronic (7) Hyperlipidemia: Chronically on statin Status: Chronic Qualifiers: Hyperlipidemia type: unspecified Qualified Code(s): E78.5 - Hyperlipidemia, unspecified (8) Hypothyroidism: Status: Chronic Qualifiers: Hypothyroidism type: acquired Qualified Code(s): E03.9 - Hypothyroidism, unspecified (9) Left leg swelling: Patient reports chronic in nature without recent change, has associated dermatitis Status: Chronic (10) Nicotine dependence, cigarettes, with other nicotine-induced disorders: Has significantly cut down on amount of smoking Status: Chronic (11) On home oxygen therapy: 3 L by nasal cannula continuous Status: Chronic Additional A&P Information Sliding scale insulin currently Continue albuterol Continue oral levothyroxine CPAP at night with nasal mask Continue home oxygen Pepcid for GI prophylaxis Lovenox for DVT prophylaxis Stool softeners Nicotine patch if needed Attestations Medical Necessity Statement*: Patient needs to be in hospital for management of Ac pancreatitis Coding Level of Care Code Acute Study Abroad Coordinator for [facility] Fwd Diagnoses Acute pancreatitis K85.20 Acute pancreatitis complication: no infection or necrosis Pancreatitis type: alcohol induced Diabetes mellitus E11.628; Z79.4 Diabetes mellitus type: type 2 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 mellitus 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 truck 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 insulin use: with care home use Diabetes mellitus complication status: with skin complications Diabetes mellitus complication detail: with other skin complication Left bundle branch block I44.7 Essential hypertension I10 COPD (chronic obstructive pulmonary disease) J43.9 COPD type: emphysema Emphysema type: unspecified MARTITA (obstructive sleep apnea) G47.33 Hyperlipidemia E78.5 Hyperlipidemia type: unspecified Hypothyroidism E03.9 Hypothyroidism type: acquired Left leg swelling M79.89 Nicotine dependence, cigarettes, with other nicotine-induced disorders F17.218 On home oxygen therapy Z99.81
[2020-05-05] MEDS: polyethylene glycol 3350 Pkt 17 gm PO (21:47)
[2020-05-05] MEDS: sennosides-docusate Tablet 2 TAB PO (21:47)
[2020-05-05] MEDS: famotidine 20 mg Tablet PO (21:48)
[2020-05-05] MEDS: insulin glargine 100 units/1 mL 10 UNIT SUBCUT (21:49)
[2020-05-06] VITALS (10 sets, daily range): BP systolic 146–172; BP diastolic 69–98; PULSE 71–84; RESP 16–19; TEMP 36.4–36.8; O2SAT 90–96
[2020-05-06] MEDS: HYDROcodone-acetaminophen 5-325 mg Tablet 1 TAB PO ×2 (05:07→17:48)
[2020-05-06] MEDS: sodium chloride 0.9% 1,000 ML 50 ML IV (05:08)
[2020-05-06] MEDS: levothyroxine 200 mcg Tablet PO (05:08)
[2020-05-06 06:45] LABS: Glucose Point of Care 121 mg/dL (70-110)
[2020-05-06] MEDS: enoxaparin 40 mg/0.4 mL Syringe SUBCUT (08:02)
[2020-05-06] MEDS: sennosides-docusate Tablet 2 TAB PO ×2 (08:03→17:50)
[2020-05-06] MEDS: polyethylene glycol 3350 Pkt 17 gm PO ×2 (08:03→17:50)
[2020-05-06] MEDS: bisacodyl 5 mg Tablet 10 MG PO (08:03)
[2020-05-06] MEDS: famotidine 20 mg Tablet PO ×2 (08:03→22:12)
[2020-05-06] MEDS: albuterol 8 gm MDI 2 PUFF INHALATION (08:14)
[2020-05-06 10:45] LABS: Glucose Point of Care 218 mg/dL (70-110)
--- NOTE | 2020-05-06 12:29 | P.PN_ITS ---
Subjective Subjective: Interval history: Patient feels constipated asking for enema. Fleet enema has been ordered. Continues to complain of abdominal pain, we are encouraging to increase his oral intake. Medications: Reviewed: Yes Vitals/I&O/Wt Last Vital Signs Temp 97.6 F 05/06/20 10:59 Pulse 75 05/06/20 10:59 Resp 16 05/06/20 10:59 BP 146/69 05/06/20 10:59 Pulse Ox 92 05/06/20 10:59 05/05/20 05/06/20 05/06/20 22:59 06:59 14:59 Intake Total 140 / 400 1167.5 / 1567.5 140 / 140 Output Total 300 / 1375 1200 / 2575 450 / 450 Balance -160 / -975 -32.5 / -1007.5 -310 / -310 Physical Exam Const: COMMON NORMALS: patient oriented x3 HENMT: COMMON NORMALS: normocephalic and atraumatic HEAD & SCALP: normocep halic and atraumatic Resp: COMMON NORMALS: clear to auscultation bilaterally EFFORT & INSPECTION: Yes symmetric chest movement AUSCULTATION: clear to auscultation bilaterally Cardio: COMMON NORMALS: regular rate, regular rhythm, S1 normal heart sound present, S2 normal heart sound present, No gallops present (Cardio), No murmurs present (Cardio), No rub (Cardio) and Peripheral pulses 2+ throughout RATE: regular rate RHYTHM: regular rhythm HEART SOUNDS: S1 normal heart sound present and S2 normal heart sound present PERIPHERAL PULSES: Peripheral pulses 2+ throughout GI: COMMON NORMALS: Normal to inspection, nondistended, normoactive bowel sounds present AUSCULTATION: Yes normoactive bowel sounds RECTAL EXAM: Yes deferred OTHER: generalized abdominal tenderness improved: no guarding or rigidity. Extremity: COMMON NORMALS: no clubbing, cyanosis or edema and no pedal edema Neuro: COMMON NORMALS: patient oriented x3 Data : 05/03/20 05:23 05/03/20 05:23 A&P Assessment and plan (1) Acute pancreatitis: Ac Pancreatitis Continue IV fluids Clear liquid diet. Advance diet as tolerated Pain control Status: Acute Qualifiers: Acute pancreatitis complication: no infection or necrosis Pancreatitis type: alcohol induced Qualified Code(s): K85.20 - Alcohol induced acute pancreatitis without necrosis or infection (2) Diabetes mellitus: Type II, insulin requiring Status: Chronic Qualifiers: Diabetes mellitus type: type 2 Diabetes mellitus salvage determiner insulin use: with salvage determiner use Diabetes mellitus complication status: with skin complications Diabetes mellitus complication detail: with other skin complication Qualified Code(s): E11.628 - Type 2 diabetes mellitus with other skin complications; Z79.4 - [facility] (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 of insulin (3) Left bundle branch block: No prior EKGs for comparison Status: Acute (4) Essential hypertension: Appears well controlled currently Status: Chronic (5) COPD (chronic obstructive pulmonary disease): Not presently acute Status: Chronic Qualifiers: COPD type: emphysema Emphysema type: unspecified Qualified Code(s): J43.9 - Emphysema, unspecified (6) MARTITA (obstructive sleep apnea): Chronically on CPAP Status: Chronic (7) Hyperlipidemia: Chronically on statin Status: Chronic Qualifiers: Hyperlipidemia type: unspecified Qualified Code(s): E78.5 - Hyperlipidemia, unspecified (8) Hypothyroidism: Status: Chronic Qualifiers: Hypothyroidism type: acquired Qualified Code(s): E03.9 - Hypothyroidism, unspecified (9) Left leg swelling: Patient reports chronic in nature without recent change, has associated dermatitis Status: Chronic (10) Nicotine dependence, cigarettes, with other nicotine-induced disorders: Has significantly cut down on amount of smoking Status: Chronic (11) On home oxygen therapy: 3 L by nasal cannula continuous Status: Chronic Additional A&P Information Sliding scale insulin currently Continue albuterol Continue oral levothyroxine CPAP at night with nasal mask Continue home oxygen Pepcid for GI prophylaxis Lovenox for DVT prophylaxis Stool softeners Nicotine patch if needed Attestations Medical Necessity Statement*: He needs to the hospital for management of acute pancreatitis. Coding Level of Care Code Acute Outreach Coordinator for [facility] Fwd Diagnoses Acute pancreatitis K85.20 Acute pancreatitis complication: no infection or necrosis Pancreatitis type: alcohol induced Diabetes mellitus E11.628; Z79.4 Diabetes mellitus type: type 2 Diabetes mellitus salvage determiner insulin use: with salvage determiner use Diabetes mellitus complication status: with skin complications Diabetes mellitus complication detail: with other skin complication Left bundle branch block I44.7 Essential hypertension I10 COPD (chronic obstructive pulmonary disease) J43.9 COPD type: emphysema Emphysema type: unspecified MARTITA (obstructive sleep apnea) G47.33 Hyperlipidemia E78.5 Hyperlipidemia type: unspecified Hypothyroidism E03.9 Hypothyroidism type: acquired Left leg swelling M79.89 Nicotine dependence, cigarettes, with other nicotine-induced disorders F17.218 On home oxygen therapy Z99.81
[2020-05-06] MEDS: Fleet Enema 133 mL Enema PR (13:37)
--- NOTE | 2020-05-06 13:37 | PC.NURSE ---
Fleets Enema given at this time. Patient has not had any results at this time.
[2020-05-06 17:04] LABS: Glucose Point of Care 195 mg/dL (70-110)
[2020-05-06] MEDS: ondansetron 2 mg/ML SDV 2 mL 4 MG IVP (17:48)
--- NOTE | 2020-05-06 19:41 | PC.NURSE ---
Report to Magui CURTIS at this time.
[2020-05-06 20:32] LABS: Glucose Point of Care 174 mg/dL (70-110)
[2020-05-06] MEDS: insulin glargine 100 units/1 mL 10 UNIT SUBCUT (22:12)
[2020-05-07] VITALS (10 sets, daily range): BP systolic 168–181; BP diastolic 90–95; PULSE 70–83; RESP 16–19; TEMP 36.5–37.1; O2SAT 94–99
[2020-05-07] MEDS: ondansetron 2 mg/ML SDV 2 mL 4 MG IVP ×3 (03:43→15:23)
[2020-05-07] MEDS: levothyroxine 200 mcg Tablet PO (05:55)
[2020-05-07 06:25] LABS: Glucose Point of Care 127 mg/dL (70-110)
[2020-05-07 07:09] LABS: Basophils % 0.3 %; Eosinophils # 0.1 10^3/uL (0.0-0.8); Eosinophils % 1.2 %; Hematocrit 45.4 % (42.0-52.0); Hemoglobin 14.5 g/dL (11.7-16.6); Lymphocytes # 1.1 10^3/uL (0.8-4.8); Lymphocytes % 16.3 %; Mean Corpuscular HGB Conc 31.9 g/dL (30.0-36.0); Mean Corpuscular Hemoglobin 32.2 pg (28.0-34.0); Mean Corpuscular Volume 100.9 fL (80-94); Mean Platelet Volume 10.8 fL (7.4-10.4); Monocytes # 0.7 10^3/uL (0.2-0.9); Neutrophils # 4.79 10^3/uL (1.8-7.7); Neutrophils % 71.9 %; Nucleated Red Blood Cells % 0 %; Platelet Count 144 10^3/cmm (130-400); Red Cell Distribution Width 12.7 % (12.1-15.1); White Blood Count 6.7 10^3/uL (4.0-10.0)
[2020-05-07 07:40] LABS: Alanine Aminotransferase 9 U/L (0-41); Albumin Level 3.9 g/dL (3.5-5.2); Alkaline Phosphatase 75 IU/L (40-130); Anion Gap 9.6 (5-19); Aspartate Amino Transferase 15 U/L (0-40); Blood Urea Nitrogen 6 mg/dL (6-20); Calcium 9.4 mg/dL (8.5-10.5); Carbon Dioxide 39 mmol/L (22-29); Chloride 92 mmol/L (98-107); Globulin 3.3 g/dL (1.3-4.6); Glomerular Filtration Rate 170.8 mL/min (90-130); Glucose 149 mg/dL (65-115); Lipase 144 U/L (13-60); Osmolality Calculated 282 mOsm/kg (285-295); Potassium 4.6 mmol/L (3.5-5.1); Sodium 136 mmol/L (136-145); Total Bilirubin 0.6 mg/dL (0.15-1.2); Total Protein 7.2 g/dL (6.6-8.7)
[2020-05-07] MEDS: albuterol 8 gm MDI 2 PUFF INHALATION (08:21)
[2020-05-07] MEDS: enoxaparin 40 mg/0.4 mL Syringe SUBCUT (08:54)
[2020-05-07] MEDS: famotidine 20 mg Tablet PO ×2 (08:54→22:50)
[2020-05-07] MEDS: polyethylene glycol 3350 Pkt 17 gm PO ×2 (08:54→17:30)
[2020-05-07] MEDS: sennosides-docusate Tablet 2 TAB PO ×2 (08:54→17:30)
--- NOTE | 2020-05-07 09:00 | PC.NURSE ---
AM ASSESSMENT NOTE NOTED PT TO HAVE CLUBBING TO HANDS - BLE WITH POOR HYGIENE - DARKENED SKIN SCATTERED - DRYNESS NOTED
--- NOTE | 2020-05-07 09:16 | PM.PN ---
Subjective Subjective: Interval history: Patient was seen and examined this morning and is complaining of constipation as well as persistent generalized abdominal pain. Medications: Reviewed: Yes Vitals/I&O/Wt Last Vital Signs Temp 98.1 F 05/07/20 07:03 Pulse 76 05/07/20 08:23 Resp 17 05/07/20 08:21 BP 168/91 05/07/20 07:03 Pulse Ox 98 05/07/20 08:21 05/06/20 05/07/20 05/07/20 22:59 06:59 14:59 Intake Total 120 / 400 240 / 240 Balance 120 / -50 240 / 240 Physical Exam Const: COMMON NORMALS: patient oriented x3 HENMT: COMMON NORMALS: normocephalic and atraumatic HEAD & SCALP: normocephalic and atraumatic Resp: COMMON NORMALS: clear to auscultation bilaterally EFFORT & INSPECTION: Yes symmetric chest movement AUSCULTATION: clear to auscultation bilaterally Cardio: COMMON NORMALS: regular rate, regular rhythm, S1 normal heart sound present, S2 normal heart sound present, No gallops present (Cardio), No murmurs present (Cardio), No rub (Cardio) and Peripheral pulses 2+ throughout RATE: regular rate RHYTHM: regular rhythm HEART SOUNDS: S1 normal heart sound present and S2 normal heart sound present PERIPHERAL PULSES: Peripheral pulses 2+ throughout GI: COMMON NORMALS: Normal to inspection, nondistended, normoactive bowel sounds present AUSCULTATION: Yes normoactive bowel sounds RECTAL EXAM: Yes deferred OTHER: generalized abdominal tenderness : no guarding or rigidity. Extremity: COMMON NORMALS: no clubbing, cyanosis or edema and no pedal edema Neuro: COMMON NORMALS: patient oriented x3 Data : 05/07/20 06:05 05/07/20 06:05 A&P Assessment and plan (1) Constipation: Patient is complaining of severe constipation and persistent abdominal pain.He think that all the he has some other G/I Cause of abdominal pain and constipation. Lactulose as well as other laxatives were given. Patient was told that if his symptoms doesn't improve then he we can refer him to a GI Specialist.He understands. Repeat C.T abdomen and Pelvis ordered. Status: Acute (2) Acute pancreatitis: Ac Pancreatitis ( Resolved ) Continue IV fluids Carbohydrate consistent diet as tolerated Pain control Status: Acute Qualifiers: Acute pancreatitis complication: no infection or necrosis Pancreatitis type: alcohol induced Qualified Code(s): K85.20 - Alcohol induced acute pancreatitis without necrosis or infection (3) Diabetes mellitus: Type II, insulin requiring Status: Chronic Qualifiers: Diabetes mellitus complication detail: with other skin complication Diabetes mellitus complication status: with skin complications Diabetes mellitus nursing home insulin use: with nursing home use Diabetes mellitus type: type 2 Qualified Code(s): E11.628 - Type 2 diabetes mellitus with other skin complications; Z79.4 - [facility] (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 of insulin (4) Left bundle branch block: No prior EKGs for comparison Status: Acute (5) Essential hypertension: Appears well controlled currently Status: Chronic (6) COPD (chronic obstructive pulmonary disease): Not presently acute Status: Chronic Qualifiers: COPD type: emphysema Emphysema type: unspecified Qualified Code(s): J43.9 - Emphysema, unspecified (7) MARTITA (obstructive sleep apnea): Chronically on CPAP Status: Chronic (8) Hyperlipidemia: Chronically on statin Status: Chronic Qualifiers: Hyperlipidemia type: unspecified Qualified Code(s): E78.5 - Hyperlipidemia, unspecified (9) Hypothyroidism: Status: Chronic Qualifiers: Hypothyroidism type: acquired Qualified Code(s): E03.9 - Hypothyroidism, unspecified (10) Left leg swelling: Patient reports chronic in nature without recent change, has associated dermatitis Status: Chronic (11) Nicotine dependence, cigarettes, with other nicotine-induced disorders: Has significantly cut down on amount of smoking Status: Chronic (12) On home oxygen therapy: 3 L by nasal cannula continuous Status: Chronic Additional A&P Information Sliding scale insulin currently Continue albuterol Continue oral levothyroxine CPAP at night with nasal mask Continue home oxygen Pepcid for GI prophylaxis Lovenox for DVT prophylaxis Stool softeners Nicotine patch if needed Attestations Medical Necessity Statement*: Patient needs to be in hospital for the management of persistent abdominal pain Coding Level of Care Code Acute Tire Regrooving Machine Operator for [facility] Fwd Exam Detailed Diagnoses Constipation K59.00 Acute pancreatitis K85.20 Acute pancreatitis complication: no infection or necrosis Pancreatitis type: alcohol induced Diabetes mellitus E11.628; Z79.4 Diabetes mellitus complication detail: with other skin complication Diabetes mellitus complication status: with skin complications Diabetes mellitus nursing home insulin use: with nursing home use Diabetes mellitus type: type 2 Left bundle branch block I44.7 Essential hypertension I10 COPD (chronic obstructive pulmonary disease) J43.9 COPD type: emphysema Emphysema type: unspecified MARTITA (obstructive sleep apnea) G47.33 Hyperlipidemia E78.5 Hyperlipidemia type: unspecified Hypothyroidism E03.9 Hypothyroidism type: acquired Left leg swelling M79.89 Nicotine dependence, cigarettes, with other nicotine-induced disorders F17.218 On home oxygen therapy Z99.81
--- NOTE | 2020-05-07 10:01 | PC.NURSE ---
EDUCATION EDUCATION GIVEN TO PT REGARDING NEED TO AMBULATE IN [place] - PT STATES I DONT THINK I'LL BE ABLE TO DO THAT EDUCATED PT TO IMPORTANCE OF AMBULATION AND NEED TO ATTEMPT IT - VERBALIZED UNDERSTANDING
--- NOTE | 2020-05-07 10:21 | PC.CHAP ---
Pastoral Care Encounter/Spiritual Assessment Type of Contact [x] Declined manager performance visit [] Patient/Family/Request visit [] Outpatient visit [] Follow-up visit [] Physician referral [] Code/Alert [] Routine visit [] Staff referral [] Actively dying [] Patient sleeping [] Family support [] [] Out of room [] Palliative care [] [] Receiving care in room [] Pre-surgical visit [] Trauma [] Long length of stay [] ICU visit [] Other: Relational/Emotional Strength [] Patient feels connected with others/family/visitors/staff [] Distress [] Loneliness/isolation [] Abandonment Spirituality of Patient [] Person of Yvrose [] Attends Adventist of their Yv[place] [] Believes in Prayer [] Reads Bible or Quaker materials [] There are Spiritual issues to be addressed Coil Maker Interventions [] Prayer [] Active listening [] Non-anxious presence [] Spiritual/emotional support [] Crisis/trauma care [] Spiritual counseling [] Bereavement support [] Provided bereavement packet [] Provided Bible/devotional materials [] Provided toy/stuffed animal, coloring book to patient or family member [] Provided Communion [] Anointing/Browns [] Salvation [] Completed spiritual assessment [] Other: Impact on Illness or Injury [] Angry [] Fearful [] Anxious [] Often cries [] Exhaustion [] Unable to work [] Unable to attend restorationism [] Unable to walk/stand [] Unable to read [] Unable to drive [] Unable to eat/drink [] Unable to sleep [] Unable to be with family [x] Patient intubated [] Other: Summary Patient refused Coil Maker visit. Time spent with patient 2 minutes
--- NOTE | 2020-05-07 10:50 | PC.SOCIAL ---
*IMM UPDATE* Gave patient IMM update. Left copy of pg 2 in room. Initialed, dated, timed and placed in chart.
[2020-05-07 11:49] LABS: Glucose Point of Care 214 mg/dL (70-110)
[2020-05-07] MEDS: lactulose oral liq 20 gm/30 mL UDC 30 GM PO ×2 (12:13→14:22)
--- NOTE | 2020-05-07 16:14 | PC.NURSE ---
DR KING AT APPROX 1215 DR KING IN ROOM WITH PATIENT TO ROUND - PT VOICES CONCERNS REGARDING DISTENDED ABDOMEN, PAIN IN ABD, NAUSEA, CONTINUED ABILITY TO HAVE LITTLE FOOD INTAKE AND CONSTIPATION - DR KING AT SIDE - EXPLAINING PLAN OF CARE - PT VERY UPSET, AT TIMES REFUSING TO ANSWER 'S QUESTIONS - STATING YOU CANT FIX THIS AND YOU'RE NOT GOING TO DO ANYTHING ABOUT IT ANYWAY SO WAY WOULD YOU WORRY ABOUT IT - NEW ORDERS REC'D PER DR KING - 1ST DOSE OF LACTULOSE GIVEN - PT PASSED LARGE SOFT STOOL - REFUSES FLEETS - 2ND DOSE OF LACTULOSE GIVEN WITHIN 2 HOURS PER ORDER - QUESTIONED PT AFTER BM - PT STATES IM RIGHT BACK TO [place] MY ABDOMEN HURTS PT DECLINED 1600 LACTULOSE - AGAIN ENCOURAGED PT TO AMBULATE IN [place] - PT STATES I WILL TRY LATER
[2020-05-07 16:58] LABS: Glucose Point of Care 196 mg/dL (70-110)
[2020-05-07] MEDS: HYDROcodone-acetaminophen 5-325 mg Tablet 1 TAB PO ×2 (17:35→22:50)
--- NOTE | 2020-05-07 19:15 | CTR_ITS ---
PROCEDURE INFORMATION: Exam: CT Abdomen And Pelvis Without Contrast Exam date and time: 05/07/2020 9:00 PM Age: 59 years old Clinical indication: Abdominal pain; Generalized; Prior surgery; Surgery date: 6+ months; Surgery type: Hernia; Patient HX: Persistent abd pain w nausea and constipation; Additional info: Peristent genralizsed abdominal pain TECHNIQUE: Imaging protocol: Computed tomography of the abdomen and pelvis without contrast. Radiation optimization: All CT scans at this facility use at least one of these dose optimization techniques: automated exposure control; mA and/or kV adjustment per patient size (includes targeted exams where dose is matched to clinical indication); or iterative reconstruction. Other contrast: Oral, 450ml dilute omni 300, 20; COMPARISON: CT abdomen pelvis wo con [id number] 05/02/2020 4:30 AM RADIATION DOSE METRICS: Total DLP (mGy-cm): 1680.55 FINDINGS: Liver: Normal. No mass. Gallbladder and bile ducts: Normal. No calcified stones. No ductal dilation. Pancreas: There is hazy stranding in the peripancreatic fat consistent with acute pancreatitis. Spleen: Normal. No splenomegaly. Adrenal glands: Normal. No mass. Kidneys and ureters: Normal. No hydronephrosis. Stomach and bowel: There is mild duodenal mucosal thickening. Appendix: No evidence of appendicitis. Intraperitoneal space: Unremarkable. No free air. No significant fluid collection. Vasculature: Unremarkable. No abdominal aortic aneurysm. Lymph nodes: Unremarkable. No enlarged lymph nodes. Urinary bladder: Unremarkable as visualized. Reproductive: Unremarkable as visualized. Bones/joints: There are severe degenerative changes across the pubic symphysis. Degenerative changes are present in the visualized spine. Degenerative changes extend across the hip joints. At L5-S1 level there is a broad-based disc osteophyte complex contributing to bilateral neural foraminal narrowing. Soft tissues: Unremarkable. CT/CT abdomen pelvis wo con [id number] IMPRESSION: 1. Hazy stranding in the peripancreatic fat is consistent with acute pancreatitis. 2. There is mild duodenal mucosal thickening. This may be reactive in nature. Radiation Dose CTDIVOL = (mGy): DLP = 1680.55 (mGy-cm)
[2020-05-07 20:02] LABS: Glucose Point of Care 220 mg/dL (70-110)
[2020-05-07] MEDS: insulin glargine 100 units/1 mL 10 UNIT SUBCUT (21:07)
[2020-05-07] MEDS: iohexol 300 mg/mL 50 mL Btl PO (22:39)
[2020-05-08] VITALS (8 sets, daily range): BP systolic 136–177; BP diastolic 79–97; PULSE 70–81; RESP 16–21; TEMP 36.4–36.9; O2SAT 93–99
[2020-05-08] MEDS: HYDROcodone-acetaminophen 5-325 mg Tablet 1 TAB PO ×3 (03:33→18:12)
[2020-05-08] MEDS: levothyroxine 200 mcg Tablet PO (05:59)
[2020-05-08 06:56] LABS: Basophils % 0.3 %; Eosinophils # 0.1 10^3/uL (0.0-0.8); Eosinophils % 1.9 %; Hematocrit 43.1 % (42.0-52.0); Hemoglobin 14.1 g/dL (11.7-16.6); Lymphocytes # 1.2 10^3/uL (0.8-4.8); Lymphocytes % 18.5 %; Mean Corpuscular HGB Conc 32.7 g/dL (30.0-36.0); Mean Corpuscular Hemoglobin 32.2 pg (28.0-34.0); Mean Corpuscular Volume 98.4 fL (80-94); Mean Platelet Volume 10.9 fL (7.4-10.4); Monocytes # 0.7 10^3/uL (0.2-0.9); Monocytes % 10.8 %; Neutrophils # 4.56 10^3/uL (1.8-7.7); Neutrophils % 68.2 %; Nucleated Red Blood Cells % 0 %; Platelet Count 154 10^3/cmm (130-400); Red Blood Count 4.38 10^6/uL (4.1-5.3); Red Cell Distribution Width 12.6 % (12.1-15.1); White Blood Count 6.7 10^3/uL (4.0-10.0)
[2020-05-08 07:22] LABS: Glucose Point of Care 164 mg/dL (70-110)
[2020-05-08 07:25] LABS: Alanine Aminotransferase 10 U/L (0-41); Albumin Level 3.7 g/dL (3.5-5.2); Alkaline Phosphatase 73 IU/L (40-130); Anion Gap 12.1 (5-19); Aspartate Amino Transferase 13 U/L (0-40); Blood Urea Nitrogen 6 mg/dL (6-20); Carbon Dioxide 36 mmol/L (22-29); Chloride 92 mmol/L (98-107); Globulin 3.3 g/dL (1.3-4.6); Glomerular Filtration Rate 138.4 mL/min (90-130); Glucose 153 mg/dL (65-115); Osmolality Calculated 281 mOsm/kg (285-295); Potassium 5.1 mmol/L (3.5-5.1); Sodium 135 mmol/L (136-145); Total Bilirubin 0.5 mg/dL (0.15-1.2)
[2020-05-08] MEDS: ondansetron 2 mg/ML SDV 2 mL 4 MG IVP ×2 (08:09→18:11)
[2020-05-08] MEDS: enoxaparin 40 mg/0.4 mL Syringe SUBCUT (08:11)
[2020-05-08] MEDS: famotidine 20 mg Tablet PO ×2 (08:11→21:08)
[2020-05-08 11:04] LABS: Glucose Point of Care 246 mg/dL (70-110)
--- NOTE | 2020-05-08 15:09 | P.PN_ITS ---
Subjective Subjective: Interval history: The patient reports lower abdominal pain. Denies fever or chills, nausea or vomiting. The large bowel movement after was given laxative. However it did not improve the pain. Denies chest pain, shortness of breath, cough, palpitations. Medications: Reviewed: Yes Medication Review Details: Generic Name Dose Route Start Last Admin Trade Name Freq PRN Reason Stop Dose Admin Acetaminophen 650 mg 05/02/20 06:48 05/04/20 03:09 Acetaminophen 32 5 Mg Tablet PO 650 mg Q6H PRN Administration Mild/Mod Pain Or Temp >/= 101 Hydrocodone Bitart /Acetaminophen 1 tab 05/06/20 08:20 05/08/20 11:44 Hydrocodone-Acet aminophen 5-325 Mg Tablet PO 1 tab Q4H PRN Administration MODERATE PAIN Albuterol Sulfate 2 puff 05/04/20 21:14 05/07/20 08:21 Albuterol 8 Gm M di INHALATION 2 puff Q4H.RESPIRATORY P RN Administration SOB if refuses ne b Bisacodyl 10 mg 05/02/20 07:33 05/06/20 08:03 Bisacodyl 5 Mg T ablet PO 10 mg DAILY PRN Administration CONSTIPATION Enoxaparin Sodium 40 mg 05/02/20 07:30 05/08/20 08:11 Enoxaparin 40 Mg /0.4 Ml Syringe SUBCUT 40 mg Q24H HINA Administration Famotidine 20 mg 05/04/20 21:00 05/08/20 08:11 Famotidine 20 Mg Tablet PO 20 mg 0900,2100 HINA Administration Insulin Aspart 0 unit 05/02/20 21:00 05/07/20 21:08 Insulin Aspart 1 00 Unit/1 Ml SUBCUT 2 unit BEDTIME HINA Administration Protocol Insulin Aspart 0 unit 05/02/20 08:00 05/08/20 11:44 Insulin Aspart 1 00 Unit/1 Ml SUBCUT 6 unit TIDWM HINA Administration Protocol Insulin Glargine 10 unit 05/02/20 21:00 05/07/20 21:07 Insulin Glargine 100 Units/1 Ml SUBCUT 10 unit BEDTIME HINA Administration Levothyroxine Sodi um 200 mcg 05/03/20 06:00 05/08/20 05:59 Levothyroxine 20 0 Mcg Tablet PO 200 mcg QAM HINA Administration Ondansetron HCl 4 mg 05/02/20 04:51 05/08/20 08:09 Ondansetron 2 Mg /Ml Sdv 2 Ml IVP 4 mg Q6H PRN Administration NAUSEA AND VOMITI NG Polyethylene Glyco l 17 gm 05/05/20 18:00 05/08/20 08:11 Polyethylene Gly col 3350 Pkt 17 Gm PO Not Given BID HINA Vitals/I&O/Wt Last Vital Signs Temp 98.5 F 05/08/20 11:29 Pulse 81 05/08/20 11:29 Resp 18 05/08/20 11:29 BP 136/89 05/08/20 11:29 Pulse Ox 97 05/08/20 11:29 05/08/20 05/08/20 05/08/20 06:59 14:59 22:59 Intake Total 980 / 1460 480 / 480 Output Total 750 / 750 Balance 230 / 710 480 / 480 Physical Exam Narrative: EXAM NARRATIVE: Awake alert oriented x4. No acute distress. Mood and affect are appropriate. Responses are adequate. Skin is warm and dry. Moist mucous membranes. Eyes PERRLA, extraocular muscles are intact. Normal speech. Neck is supple. No JVD Lungs clear. No wheezes or crackles Heart S1, S2, regular Abdomen is obese, soft, tender in mid abdomen and lower abdomen bilaterally. No rebound. Bowel sounds are present. Mild bilateral pedal edema. No cyanosis or calf tenderness bilaterally Data : 05/08/20 05:35 05/08/20 05:35 A&P Assessment and plan (1) Constipation: Patient is complaining of severe constipation and persistent abdominal pain.He think that all the he has some other G/I Cause of abdominal pain and constipation. Lactulose as well as other laxatives were given. Patient was told that if his symptoms doesn't improve then he we can refer him to a GI Specialist.He understands. Repeat C.T abdomen and Pelvis ordered. Status: Acute (2) Acute pancreatitis: Ac Pancreatitis ( Resolved ) Continue IV fluids Carbohydrate consistent diet as tolerated Pain control Status: Acute Qualifiers: Acute pancreatitis complication: no infection or necrosis Pancreatitis type: alcohol induced Qualified Code(s): K85.20 - Alcohol induced acute pancreatitis without necrosis or infection (3) Diabetes mellitus: Type II, insulin requiring Status: Chronic Qualifiers: Diabetes mellitus type: type 2 Diabetes mellitus intermediate manager insulin use: with fci use Diabetes mellitus complication status: with skin complications Diabetes mellitus complication detail: with other skin complication Qualified Code(s): E11.628 - Type 2 diabetes mellitus with other skin complications; Z79.4 - [facility] (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 of insulin (4) Left bundle branch block: No prior EKGs for comparison Status: Acute (5) Essential hypertension: Appears well controlled currently Status: Chronic (6) COPD (chronic obstructive pulmonary disease): Not presently acute Status: Chronic Qualifiers: COPD type: emphysema Emphysema type: unspecified Qualified Code(s): J43.9 - Emphysema, unspecified (7) MARTITA (obstructive sleep apnea): Chronically on CPAP Status: Chronic (8) Hyperlipidemia: Chronically on statin Status: Chronic Qualifiers: Hyperlipidemia type: unspecified Qualified Code(s): E78.5 - Hyperlipidemia, unspecified (9) Hypothyroidism: Status: Chronic Qualifiers: Hypothyroidism type: acquired Qualified Code(s): E03.9 - Hypothyroidism, unspecified (10) Left leg swelling: Patient reports chronic in nature without recent change, has associated dermatitis Status: Chronic (11) Nicotine dependence, cigarettes, with other nicotine-induced disorders: Has significantly cut down on amount of smoking Status: Chronic (12) On home oxygen therapy: 3 L by nasal cannula continuous Status: Chronic Additional A&P Information Sliding scale insulin currently Continue albuterol Continue oral levothyroxine CPAP at night with nasal mask Continue home oxygen Pepcid for GI prophylaxis Lovenox for DVT prophylaxis Stool softeners Nicotine patch if needed [place] Abdominal pain. Initially was suspected to be secondary to acute pancreatitis which was confirmed by CT. However current location of the pain is not typical for pancreatitis. Also, constipation was suspected to be one of the possible explanations. However the pain did not resolve after he had a bowel movement. On examination he has large ventral hernia without incarceration however pain. Will request a surgical consult. We will continue pain management. Appreciate Dr. Groves's input. Mild acute pancreatitis. Currently tolerating diet well. We will continue current management. Possible cirrhosis. CT does not show ascites. He has history of excessive alcohol intake. However currently his alcohol intake is very occasional. Alcohol cessation counseling is provided by me. Constipation resolved. Diabetes. Continue current management. Hypertension. Currently well controlled. Continue current management. Obstructive sleep apnea. CPAP as needed. Left bundle branch block. No chest pain or other cardiac symptoms. Will provide referral for cardiology evaluation after discharge. DVT prophylaxis. Lovenox. The plan of care was discussed with the patient. He verbalized understanding and agreement. Attestations Medical Necessity Statement*: The pain still persist. Continuing testing and pain management for now. Coding Level of Care Code Acute Rn Camp for [facility] Fwd Diagnoses Constipation K59.00 Acute pancreatitis K85.20 Acute pancreatitis complication: no infection or necrosis Pancreatitis type: alcohol induced Diabetes mellitus E11.628; Z79.4 Diabetes mellitus type: type 2 Diabetes mellitus intermediate manager insulin use: with intermediate manager use Diabetes mellitus complication status: with skin complications Diabetes mellitus complication detail: with other skin complication Left bundle branch block I44.7 Essential hypertension I10 COPD (chronic obstructive pulmonary disease) J43.9 COPD type: emphysema Emphysema type: unspecified MARTITA (obstructive sleep apnea) G47.33 Hyperlipidemia E78.5 Hyperlipidemia type: unspecified Hypothyroidism E03.9 Hypothyroidism type: acquired Left leg swelling M79.89 Nicotine dependence, cigarettes, with other nicotine-induced disorders F17.218 On home oxygen therapy Z99.81
[2020-05-08 17:23] LABS: Glucose Point of Care 169 mg/dL (70-110)
[2020-05-08] MEDS: polyethylene glycol 3350 Pkt 17 gm PO (17:41)
[2020-05-08 20:28] LABS: Glucose Point of Care 233 mg/dL (70-110)
[2020-05-08] MEDS: insulin glargine 100 units/1 mL 10 UNIT SUBCUT (21:08)
[2020-05-09] VITALS (10 sets, daily range): BP systolic 157–176; BP diastolic 74–92; PULSE 67–83; RESP 16–18; TEMP 36.4–36.6; O2SAT 93–98
--- NOTE | 2020-05-09 03:36 | ECG_ITS ---
[facility] ED Test Date: 2020-05-09 Pat Name: Amanuel Restrepo Department: Room: 277 Gender: Male Home Health Clinical Supervisor: : 1960 Requested By: iGgi Vaz Order Number: [id number] Ish MD: Prachi Sheldon M.D. Measurements Intervals [place] Rate: 77 P: 45 VA: 186 QRS: -12 QRSD: 194 T: 188 QT: 458 QTc: 518 Interpretive Statements SINUS RHYTHM LEFT BUNDLE BRANCH BLOCK [120+ ms QRS DURATION, 80+ ms Q/S IN V1/V2, 85+ ms R IN I/aVL/V5/V6] INTERPRETATION BASED ON A DEFAULT AGE OF 40 YEARS Compared to ECG 05/02/2020 13:21:08 No significant changes Electronically Signed On 05-12-2020 18:16:23 CDT by Prachi Sheldon M.D. [id number]
[2020-05-09] MEDS: HYDROcodone-acetaminophen 5-325 mg Tablet 1 TAB PO ×3 (04:08→17:29)
[2020-05-09] MEDS: levothyroxine 200 mcg Tablet PO (06:15)
[2020-05-09 06:21] LABS: Basophils % 0.4 %; Eosinophils # 0.2 10^3/uL (0.0-0.8); Eosinophils % 3.3 %; Hematocrit 42.7 % (42.0-52.0); Hemoglobin 13.9 g/dL (11.7-16.6); Lymphocytes # 1.6 10^3/uL (0.8-4.8); Lymphocytes % 22.5 %; Mean Corpuscular HGB Conc 32.6 g/dL (30.0-36.0); Mean Corpuscular Volume 98.2 fL (80-94); Mean Platelet Volume 10.9 fL (7.4-10.4); Monocytes # 0.9 10^3/uL (0.2-0.9); Monocytes % 12.3 %; Neutrophils # 4.23 10^3/uL (1.8-7.7); Neutrophils % 61.4 %; Nucleated Red Blood Cells % 0 %; Platelet Count 167 10^3/cmm (130-400); Red Blood Count 4.35 10^6/uL (4.1-5.3); Red Cell Distribution Width 12.5 % (12.1-15.1); White Blood Count 6.9 10^3/uL (4.0-10.0)
[2020-05-09] MEDS: enoxaparin 40 mg/0.4 mL Syringe SUBCUT (06:30)
[2020-05-09 06:43] LABS: Alanine Aminotransferase 10 U/L (0-41); Albumin Level 3.6 g/dL (3.5-5.2); Alkaline Phosphatase 68 IU/L (40-130); Anion Gap 11.5 (5-19); Aspartate Amino Transferase 14 U/L (0-40); Blood Urea Nitrogen 7 mg/dL (6-20); Carbon Dioxide 36 mmol/L (22-29); Chloride 93 mmol/L (98-107); Globulin 3.1 g/dL (1.3-4.6); Glomerular Filtration Rate 138.4 mL/min (90-130); Glucose 153 mg/dL (65-115); Osmolality Calculated 283 mOsm/kg (285-295); Potassium 4.5 mmol/L (3.5-5.1); Sodium 136 mmol/L (136-145); Total Bilirubin 0.4 mg/dL (0.15-1.2); Total Protein 6.7 g/dL (6.6-8.7)
[2020-05-09 06:43] LABS: Glucose Point of Care 158 mg/dL (70-110)
[2020-05-09 07:21] LABS: Magnesium 1.8 mg/dL (1.7-2.3)
[2020-05-09 07:22] LABS: Phosphorus 3.2 mg/dL (2.5-4.5)
[2020-05-09] MEDS: famotidine 20 mg Tablet PO ×2 (09:10→21:15)
[2020-05-09] MEDS: polyethylene glycol 3350 Pkt 17 gm PO ×2 (09:11→17:29)
[2020-05-09 12:30] LABS: Glucose Point of Care 242 mg/dL (70-110)
--- NOTE | 2020-05-09 13:39 | PM.PN ---
Subjective Subjective: Interval history: The patient is doing better today. No bowel movements. Abdominal pain is better. No nausea or vomiting. No fever or chills. No chest pain, shortness of breath, cough, palpitations. Denies dysuria. Medications: Reviewed: Yes Medication Review Details: Generic Name Dose Route Start Last Admin Trade Name Freq PRN Reason Stop Dose Admin Acetaminophen 650 mg 05/02/20 06:48 05/04/20 03:09 Acetaminophen 32 5 Mg Tablet PO 650 mg Q6H PRN Administration Mild/Mod Pain Or Temp >/= 101 Hydrocodone Bitart /Acetaminophen 1 tab 05/06/20 08:20 05/09/20 09:31 Hydrocodone-Acet aminophen 5-325 Mg Tablet PO 1 tab Q4H PRN Administration MODERATE PAIN Albuterol Sulfate 2 puff 05/04/20 21:14 05/07/20 08:21 Albuterol 8 Gm M di INHALATION 2 puff Q4H.RESPIRATORY P RN Administration SOB if refuses ne b Bisacodyl 10 mg 05/02/20 07:33 05/06/20 08:03 Bisacodyl 5 Mg T ablet PO 10 mg DAILY PRN Administration CONSTIPATION Enoxaparin Sodium 40 mg 05/02/20 07:30 05/09/20 06:30 Enoxaparin 40 Mg /0.4 Ml Syringe SUBCUT 40 mg Q24H HINA Administration Famotidine 20 mg 05/04/20 21:00 05/09/20 09:10 Famotidine 20 Mg Tablet PO 20 mg 0900,2100 HINA Administration Insulin Aspart 0 unit 05/02/20 21:00 05/08/20 21:07 Insulin Aspart 1 00 Unit/1 Ml SUBCUT 3 unit BEDTIME HINA Administration Protocol Insulin Aspart 0 unit 05/02/20 08:00 05/09/20 12:47 Insulin Aspart 1 00 Unit/1 Ml SUBCUT 6 unit TIDWM HINA Administration Protocol Insulin Glargine 10 unit 05/02/20 21:00 05/08/20 21:08 Insulin Glargine 100 Units/1 Ml SUBCUT 10 unit BEDTIME HINA Administration Levothyroxine Sodi um 200 mcg 05/03/20 06:00 05/09/20 06:15 Levothyroxine 20 0 Mcg Tablet PO 200 mcg QAM HINA Administration Ondansetron HCl 4 mg 05/02/20 04:51 05/08/20 18:11 Ondansetron 2 Mg /Ml Sdv 2 Ml IVP 4 mg Q6H PRN Administration NAUSEA AND VOMITI NG Polyethylene Glyco l 17 gm 05/05/20 18:00 05/09/20 09:11 Polyethylene Gly col 3350 Pkt 17 Gm PO 17 gm BID HINA Administration Vitals/I&O/Wt Last Vital Signs Temp 98 F 05/09/20 12:00 Pulse 71 05/09/20 12:00 Resp 18 05/09/20 12:00 BP 167/82 05/09/20 12:00 Pulse Ox 97 05/09/20 12:00 05/08/20 05/09/20 05/09/20 22:59 06:59 14:59 Intake Total 240 / 720 480 / 480 Output Total 0 / 0 Balance 240 / 720 0 / 720 480 / 480 Physical Exam Narrative: EXAM NARRATIVE: Awake alert oriented x4. No acute distress. Mood and affect are appropriate. Responses are adequate. Skin is warm and dry. Moist mucous membranes. Eyes PERRLA, extraocular muscles are intact. Normal speech. Neck is supple. No JVD Lungs clear. No wheezes or crackles Heart S1, S2, regular Abdomen is obese, soft, nontender. No rebound or guarding. Bowel sounds are present. Mild bilateral pedal edema. No cyanosis or calf tenderness bilaterally Data : 05/09/20 05:30 05/09/20 05:30 A&P Assessment and plan (1) Constipation: Patient is complaining of severe constipation and persistent abdominal pain.He think that all the he has some other G/I Cause of abdominal pain and constipation. Lactulose as well as other laxatives were given. Patient was told that if his symptoms doesn't improve then he we can refer him to a GI Specialist.He understands. Repeat C.T abdomen and Pelvis ordered. 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 Diabetes mellitus complication status: with skin complications Diabetes mellitus complication detail: with other skin complication Qualified Code(s): E11.628 - Type 2 diabetes mellitus with other skin complications; Z79.4 - emt intermediate (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 of insulin (4) Left bundle branch block: No prior EKGs for comparison Status: Acute (5) Essential hypertension: Appears well controlled currently Status: Chronic (6) COPD (chronic obstructive pulmonary disease): Not presently acute Status: Chronic Qualifiers: COPD type: emphysema Emphysema type: unspecified Qualified Code(s): J43.9 - Emphysema, unspecified (7) MARTITA (obstructive sleep apnea): Chronically on CPAP Status: Chronic (8) Hyperlipidemia: Chronically on statin Status: Chronic Qualifiers: Hyperlipidemia type: unspecified Qualified Code(s): E78.5 - Hyperlipidemia, unspecified (9) Hypothyroidism: Status: Chronic Qualifiers: Hypothyroidism type: acquired Qualified Code(s): E03.9 - Hypothyroidism, unspecified (10) Left leg swelling: Patient reports chronic in nature without recent change, has associated dermatitis Status: Chronic (11) Nicotine dependence, cigarettes, with other nicotine-induced disorders: Has significantly cut down on amount of smoking Status: Chronic (12) On home oxygen therapy: 3 L by nasal cannula continuous Status: Chronic Additional A&P Information Sliding scale insulin currently Continue albuterol Continue oral levothyroxine CPAP at night with nasal mask Continue home oxygen Pepcid for GI prophylaxis Lovenox for DVT prophylaxis Stool softeners Nicotine patch if needed [place] Abdominal pain. Initially was suspected to be secondary to acute pancreatitis which was confirmed by CT. Also, constipation was suspected to be one of the possible explanations. However the pain did not resolve after he had a bowel movement. The pain probably is not related to ventral hernia as well. There is no evidence of complications related to ventral hernia. On examination he has large ventral hernia without incarceration. Appreciate input from Dr. Groves. Probably the patient will have EGD tomorrow to rule out gastritis or peptic ulcer disease. We will continue pain management. Mild acute pancreatitis. Currently tolerating diet well. We will continue current management. Possible cirrhosis. CT does not show ascites. He has history of excessive alcohol intake. However currently his alcohol intake is very occasional. Alcohol cessation counseling is provided by me. Constipation. Resolved. Diabetes. Continue current management. Hypertension. Currently well controlled. Continue current management. Obstructive sleep apnea. CPAP as needed. Left bundle branch block. No chest pain or other cardiac symptoms. Will provide referral for cardiology evaluation after discharge. DVT prophylaxis. Lovenox. The plan of care was discussed with the patient. He verbalized understanding and agreement. Discussed with Dr. Germain Pearson Medical Necessity Statement*: Hopefully will be able to discharge him tomorrow. 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
--- NOTE | 2020-05-09 16:04 | PC.SOCIAL ---
*IMM UPDATE* Gave patient IMM update. Left copy of pg 2 in room. Initialed, dated, timed and placed in chart.
[2020-05-09 17:02] LABS: Glucose Point of Care 173 mg/dL (70-110)
[2020-05-09 20:23] LABS: Glucose Point of Care 248 mg/dL (70-110)
[2020-05-09] MEDS: insulin glargine 100 units/1 mL 10 UNIT SUBCUT (21:15)
[2020-05-09] MEDS: acetaminophen 325 mg Tablet 650 MG PO (21:19)
[2020-05-10] VITALS (11 sets, daily range): BP systolic 127–159; BP diastolic 67–89; PULSE 67–84; RESP 16–20; TEMP 36.6–36.8; O2SAT 93–98
[2020-05-10] MEDS: HYDROcodone-acetaminophen 5-325 mg Tablet 1 TAB PO ×2 (00:41→08:18)
[2020-05-10] MEDS: ondansetron 2 mg/ML SDV 2 mL 4 MG IVP (00:41)
[2020-05-10] MEDS: levothyroxine 200 mcg Tablet PO (06:13)
[2020-05-10 06:18] LABS: Basophils % 0.3 %; Eosinophils # 0.3 10^3/uL (0.0-0.8); Eosinophils % 3.4 %; Hematocrit 41.7 % (42.0-52.0); Hemoglobin 13.7 g/dL (11.7-16.6); Lymphocytes # 1.5 10^3/uL (0.8-4.8); Lymphocytes % 19.9 %; Mean Corpuscular HGB Conc 32.9 g/dL (30.0-36.0); Mean Corpuscular Hemoglobin 32.4 pg (28.0-34.0); Mean Corpuscular Volume 98.6 fL (80-94); Mean Platelet Volume 10.7 fL (7.4-10.4); Monocytes # 0.8 10^3/uL (0.2-0.9); Monocytes % 10.3 %; Neutrophils # 5.03 10^3/uL (1.8-7.7); Neutrophils % 65.7 %; Nucleated Red Blood Cells % 0 %; Platelet Count 168 10^3/cmm (130-400); Red Blood Count 4.23 10^6/uL (4.1-5.3); Red Cell Distribution Width 12.8 % (12.1-15.1); White Blood Count 7.7 10^3/uL (4.0-10.0)
[2020-05-10 06:54] LABS: Glucose Point of Care 196 mg/dL (70-110)
[2020-05-10 07:15] LABS: Alanine Aminotransferase 7 U/L (0-41); Albumin Level 3.5 g/dL (3.5-5.2); Alkaline Phosphatase 63 IU/L (40-130); Anion Gap 12.3 (5-19); Aspartate Amino Transferase 11 U/L (0-40); Blood Urea Nitrogen 10 mg/dL (6-20); Calcium 9.3 mg/dL (8.5-10.5); Carbon Dioxide 34 mmol/L (22-29); Chloride 93 mmol/L (98-107); Globulin 3.1 g/dL (1.3-4.6); Glomerular Filtration Rate 138.4 mL/min (90-130); Glucose 221 mg/dL (65-115); Osmolality Calculated 286 mOsm/kg (285-295); Potassium 4.3 mmol/L (3.5-5.1); Sodium 135 mmol/L (136-145); Total Bilirubin 0.3 mg/dL (0.15-1.2); Total Protein 6.6 g/dL (6.6-8.7)
--- NOTE | 2020-05-10 07:55 | PC.NURSE ---
DURING SHIFT CHANGE ROUNDING, PT COMPLAINED OF GENERALIZED CHEST PAIN. DR. GREEN NOTIFIED, TELE PLACED. PAIN IS REPRODUCIBLE UPON EXAM VIA PALPATION. NOTIFIED OF EXAM FINDING. PT REQUEST PO PAIN MEDS. WILL CONTINUE TO MONITOR.
[2020-05-10] MEDS: famotidine 20 mg Tablet PO ×2 (08:18→21:18)
[2020-05-10] MEDS: enoxaparin 40 mg/0.4 mL Syringe SUBCUT (08:19)
--- NOTE | 2020-05-10 08:27 | ECG_ITS ---
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 Measurements Intervals [place] Rate: 70 P: 32 NC: 164 QRS: 39 QRSD: 197 T: 210 QT: 474 QTc: 515 Interpretive Statements SINUS RHYTHM WITH OCCASIONAL VENTRICULAR PREMATURE COMPLEXES LEFT BUNDLE BRANCH BLOCK [120+ ms QRS DURATION, 80+ ms Q/S IN V1/V2, 85+ ms R IN I/aVL/V5/V6] Compared to ECG 05/09/2020 03:43:27 Ventricular premature complex(es) now present Electronically Signed On 05-12-2020 18:16:14 CDT by Prachi Sheldon M.D. [id number]
[2020-05-10 09:22] LABS: Troponin(5th) Baseline 26 ng/L (0-15)
[2020-05-10] MEDS: aspirin 81 mg EC Tablet PO (10:21)
--- NOTE | 2020-05-10 10:27 | ECG_ITS ---
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 Measurements Intervals [place] Rate: 73 P: 59 AL: 182 QRS: 29 QRSD: 202 T: -60 QT: 470 QTc: 518 Interpretive Statements SINUS RHYTHM LEFT BUNDLE BRANCH BLOCK [120+ ms QRS DURATION, 80+ ms Q/S IN V1/V2, 85+ ms R IN I/aVL/V5/V6] Compared to ECG 05/10/2020 08:59:25 Ventricular premature complex(es) no longer present Electronically Signed On 05-12-2020 18:22:20 CDT by Prachi Sheldon M.D. [id number]
[2020-05-10 11:06] LABS: Glucose Point of Care 165 mg/dL (70-110)
[2020-05-10 11:33] LABS: Troponin 5 2HR 25.43 ng/L (0-15)
[2020-05-10 11:36] LABS: Troponin 5 2HR Delta -0.57 ABS# (0-10)
--- NOTE | 2020-05-10 11:54 | PM.CONSULT ---
Providers/Reason For Consult Consulting Physican/Specialty*: Jose Alfredo Combs Reason for Consult*: Abdominal pain Attending Physician: Rudy Combs Primary Care Provider: Thomas Evangelista History of Present Illness History of Present Illness Amanuel Restrepo is a 59 year old male who was recently admitted to the hospital with acute pancreatitis. Patient states that he used to be a heavy drinker where he used to drink a bottle of vodka every night but subsequently had hospitalization with acute pancreatitis. Since then he does not drink as much and occasionally has a drink. Patient was admitted to the hospital after he presented to the ER with complaints of abdominal pain nausea and vomiting. A CT scan had shown acute pancreatitis. He was treated with bowel rest but in spite of being in the hospital since 05/02/2020 patient continues to have some abdominal pain and nausea. Repeat CT abdomen pelvis on 05/07/2020 showed mild duodenal mucosal thickening and peripancreatic fat stranding consistent with acute pancreatitis. His lipase has been trending down. Patient was initially thought to be constipated since he did not have a bowel movement for 5 6 days but after bowel prep, that too has resolved. At present he states that he is able to eat regular diet but subsequently has nausea requiring antinausea medications. He states that his last colonoscopy was 5 or 6 years ago and is up-to-date Meds/Allergies Home Medications and Allergies Home Medications Medication Instructions Recorded Confirmed Last Taken Type albuterol sulfate 2.5 mg INHALATION QID PRN 02/24/20 05/02/20 Unknown History albuterol sulfate 90 mcg/actuation 2 puff INHALATION QID PRN 02/24/20 05/02/20 Unknown History aerosol inhaler atorvastatin 20 mg tablet 20 mg PO QAM 02/24/20 05/02/20 Unknown History cyanocobalamin (vitamin B-12) 500 See Rx Instructions .ROUTE 02/24/20 05/02/20 Unknown History mcg tablet .COMPLEX tab insulin glargine 100 unit/mL (3 45 unit SUBCUT BEDTIME ml 02/24/20 05/02/20 Unknown History mL) subcutaneous pen levothyroxine 200 mcg capsule 200 mcg PO QAM 02/24/20 05/02/20 Unknown History lisinopril 20 1 tab PO QAM 02/24/20 05/02/20 Unknown History mg-hydrochlorothiazide 12.5 mg tablet metformin 500 mg tablet See Rx Instructions .ROUTE 02/24/20 05/02/20 Unknown History .COMPLEX tab tiotropium 2.5 mcg-olodaterol 2.5 2 puff INHALATION DAILY #4 g 04/17/20 05/02/20 Unknown Rx mcg/actuation mist for inhalation Vitamin C 1 tab PO DAILY 05/02/20 05/02/20 Unknown History acetaminophen [Tylenol Extra 1,000 mg PO PRN 05/02/20 05/02/20 Unknown History Strength] Allergies Allergy/AdvReac Type Severity Reaction Status Date / Time dexamethasone AdvReac ADR-Swelling Verified 05/02/20 08:35 of the Eye tobramycin AdvReac ADR-Swelling Verified 05/02/20 08:35 of the Eye Current Medications Current Medications Generic Name Dose Route Start Last Admin Trade Name Freq PRN Reason Stop Dose Admin Acetaminophen 650 mg 05/02/20 06:48 05/09/20 21:19 Acetaminophen 325 Mg Tablet PO 650 mg Q6H PRN Administration Mild/Mod Pain Or Temp >/= 101 Albuterol Sulfate 2 puff 05/04/20 21:14 05/07/20 08:21 Albuterol 8 Gm Mdi INHALATION 2 puff Q4H.RESPIRATORY PRN Administration SOB if refuses neb Aspirin 81 mg 05/10/20 10:00 05/10/20 10:21 Aspirin 81 Mg Ec Tablet PO 81 mg DAILY HINA Administration Bisacodyl 10 mg 05/02/20 07:33 05/06/20 08:03 Bisacodyl 5 Mg Tablet PO 10 mg DAILY PRN Administration CONSTIPATION Enoxaparin Sodium 40 mg 05/02/20 07:30 05/10/20 08:19 Enoxaparin 40 Mg/0.4 Ml Syringe SUBCUT 40 mg Q24H HINA Administration Famotidine 20 mg 05/04/20 21:00 05/10/20 08:18 Famotidine 20 Mg Tablet PO 20 mg 0900,2100 HINA Administration Insulin Aspart 0 unit 05/02/20 21:00 05/09/20 21:15 Insulin Aspart 100 Unit/1 Ml SUBCUT 3 unit BEDTIME HINA Administration Protocol Insulin Aspart 0 unit 05/02/20 08:00 05/10/20 11:44 Insulin Aspart 100 Unit/1 Ml SUBCUT 2 unit TIDWM HINA Administration Protocol Levothyroxine Sodium 200 mcg 05/03/20 06:00 05/10/20 06:13 Levothyroxine 200 Mcg Tablet PO 200 mcg QAM HINA Administration Ondansetron HCl 4 mg 05/02/20 04:51 05/10/20 00:41 Ondansetron 2 Mg/Ml Sdv 2 Ml IVP 4 mg Q6H PRN Administration NAUSEA AND VOMITING Polyethylene Glycol 17 gm 05/05/20 18:00 05/10/20 10:06 Polyethylene Glycol 3350 Pkt 17 Gm PO Not Given BID HINA PFSH Acute PFSH: Medical History COPD (chronic obstructive pulmonary disease) Diabetes mellitus Essential hypertension Hyperlipidemia Hypothyroidism Left leg swelling On home oxygen therapy 3L bnc MARTITA (obstructive sleep apnea) On CPAP Pancreatitis Surgical History History of arthroscopy of knee History of hernia repair History of vasectomy Family History Father Cancer CVD (cardiovascular disease) Mother CVD (cardiovascular disease) Hypertension Social History Smoking and tobacco status: current every day smoker cigarettes Years cigarettes smoked: 48 [ Other cigarette details: down to 1/2 ppd from 2+ ppd ] Quit status (tobacco): considering quitting Second hand smoke exposure: No Alcohol intake: current Alcohol intake frequency: holidays/special occasions only Alcohol use comment: history of heavy alcohol use in past Lives independently: Yes Household members: family Housing: House Marital status: Single service: No Current occupational status: disabled Pets and animals: Yes History of recent travel: No Current gender identity: Male Vitals/I&O/Wt Last Vital Signs Temp 98.3 F 05/10/20 11:46 Pulse 67 05/10/20 11:46 Resp 16 05/10/20 11:46 BP 138/79 05/10/20 11:46 Pulse Ox 96 05/10/20 11:46 05/09/20 05/10/20 05/10/20 22:59 06:59 14:59 Intake Total 240 / 720 Output Total 0 / 0 280 / 280 Balance 240 / 720 0 / 720 -280 / -280 Physical Exam Narrative: EXAM NARRATIVE: HEENT: Normocephalic Eye: Sclera /conjunctiva normal Abdomen: Soft to palpation, generalized tenderness, no guarding or rigidity Neurological: Oriented to place person and time Skin: Intact, no lesions appreciated on gross exam A&P Assessment and plan (1) Constipation: Based on latest CT scan his constipation appears to have resolved Maintain aggressive bowel regimen Status: Acute (2) Abdominal pain: 59-year-old male with persistent abdominal pain which could be secondary to persistent pancreatitis. Patient has had a prior ventral hernia repair and the mesh is retracted but there is no evidence of hernia recurrence. Discussed with the patient that tenderness over the hernia repair site could be likely secondary to scar tissue there is no evidence of obstruction requiring surgical intervention. Offered the patient the option of EGD due to the duodenal wall thickening noted on CT scan. We will plan for EGD under MAC tomorrow. Status: Acute (3) Acute pancreatitis: Lipase is down to 144 from 979 on admission and repeat CT scan showed mild peripancreatic fat haziness. No evidence of necrosis/pseudocyst Status: Acute Qualifiers: Acute pancreatitis complication: no infection or necrosis Pancreatitis type: alcohol induced Qualified Code(s): K85.20 - Alcohol induced acute pancreatitis without necrosis or infection Coding Level of Care Code Acute Supervisor Particleboard for [facility] Fwd Diagnoses Constipation K59.00 Abdominal pain R10.9 Acute pancreatitis K85.20 Acute pancreatitis complication: no infection or necrosis Pancreatitis type: alcohol induced
--- NOTE | 2020-05-10 12:50 | P.CONIM_ITS ---
Providers/Reason For Consult Consulting Physican/Specialty*: АНДРЕЙ Ge MD /cardiology Reason for Consult*: patient with chest pain and elevated troponin T Attending Physician: Rudy Combs Primary Care Provider: Thomas Evangelista History of Present Illness History of Present Illness Amanuel Restrepo is a 59 year old male with a history of hypertension, type 2 diabetes and dyslipidemia, is admitted to hospital with features of acute pancreatitis. He will be in this hospital for more than a week. He has been having episodes of chest pain for the last 5 years or so. He had an episode of chest pain in the chest today. He had a troponin today which was found to be elevated. Cardiology consult is requested for further cardiac evaluation recommendations. This patient has a history of chest pain off and on for last many years. He has no definite precipitating factors. The pain may last anywhere from 5 minutes to 3 hours. Usually it subsides spontaneously. He has no associated nausea, vomiting or sweating. No dizziness or syncopal episodes. Pain is mainly in the left side of the chest. He had a stress test and cardiac catheterization in 2004 while being in [place]. He was told to have no blockages in the arteries at that time, based on the angiogram. The medical records are not available. He has moved to the [facility] 3 years ago. He has not had any recent cardiac work-up. Patient also has a history of DVT and chronic venous stasis in the left lower extremity. Also known to have COPD/sleep apnea, hypothyroidism and heavy alcohol abuse. He quit drinking 3 years ago. Currently he drinks socially. Continues to smoke even though cut back to half pack a day, from 2 packs/day for 40 years or so. Review of Systems Narrative: CONSTITUTIONAL: No fever or chills. EYES: No blurring of vision or other visual disturbances lately. ENT: No hoarseness of voice, auditory disturbances or sore throat. CARDIOVASCULAR: As mentioned above. RESPIRATORY: Has baseline shortness of breath with activities. History of COPD/sleep apnea GASTROINTESTINAL: Current abdominal pain/pancreatitis GENITOURINARY: No dysuria or hematuria. INTEGUMENTARY: No skin rashes or history of skin cancer. NEURO: No transient ischemic attacks or amaurosis. PSYCHIATRIC: No history of psychosis or major depression. HEMATOLOGIC: No bleeding disorders or significant anemia. ENDOCRINE: History of type 2 diabetes MUSCULOSKELETAL: No recent joint pain or swelling. ALLERGY/IMMUNOLOGY: As mentioned above. Meds/Allergies Home Medications and Allergies Home Medications Medication Instructions Recorded Confirmed Last Taken Type albuterol sulfate 2.5 mg INHALATION QID PRN 02/24/20 05/02/20 Unknown History albuterol sulfate 90 mcg/actuation 2 puff INHALATION QID PRN 02/24/20 05/02/20 Unknown History aerosol inhaler atorvastatin 20 mg tablet 20 mg PO QAM 02/24/20 05/02/20 Unknown History cyanocobalamin (vitamin B-12) 500 See Rx Instructions .ROUTE 02/24/20 05/02/20 Unknown History mcg tablet .COMPLEX tab insulin glargine 100 unit/mL (3 45 unit SUBCUT BEDTIME ml 02/24/20 05/02/20 Unknown History mL) subcutaneous pen levothyroxine 200 mcg capsule 200 mcg PO QAM 02/24/20 05/02/20 Unknown History lisinopril 20 1 tab PO QAM 02/24/20 05/02/20 Unknown History mg-hydrochlorothiazide 12.5 mg tablet metformin 500 mg tablet See Rx Instructions .ROUTE 02/24/20 05/02/20 Unknown History .COMPLEX tab tiotropium 2.5 mcg-olodaterol 2.5 2 puff INHALATION DAILY #4 g 04/17/20 05/02/20 Unknown Rx mcg/actuation mist for inhalation Vitamin C 1 tab PO DAILY 05/02/20 05/02/20 Unknown History acetaminophen [Tylenol Extra 1,000 mg PO PRN 05/02/20 05/02/20 Unknown History Strength] Allergies Allergy/AdvReac Type Severity Reaction Status Date / Time dexamethasone AdvReac ADR-Swelling Verified 05/02/20 08:35 of the Eye tobramycin AdvReac ADR-Swelling Verified 05/02/20 08:35 of the Eye Current Medications Current Medications Generic Name Dose Route Start Last Admin Trade Name Freq PRN Reason Stop Dose Admin Acetaminophen 650 mg 05/02/20 06:48 05/09/20 21:19 Acetaminophen 325 Mg Tablet PO 650 mg Q6H PRN Administration Mild/Mod Pain Or Temp >/= 101 Albuterol Sulfate 2 puff 05/04/20 21:14 05/07/20 08:21 Albuterol 8 Gm Mdi INHALATION 2 puff Q4H.RESPIRATORY PRN Administration SOB if refuses neb Aspirin 81 mg 05/10/20 10:00 05/10/20 10:21 Aspirin 81 Mg Ec Tablet PO 81 mg DAILY HINA Administration Bisacodyl 10 mg 05/02/20 07:33 05/06/20 08:03 Bisacodyl 5 Mg Tablet PO 10 mg DAILY PRN Administration CONSTIPATION Enoxaparin Sodium 40 mg 05/02/20 07:30 05/10/20 08:19 Enoxaparin 40 Mg/0.4 Ml Syringe SUBCUT 40 mg Q24H HINA Administration Famotidine 20 mg 05/04/20 21:00 05/10/20 08:18 Famotidine 20 Mg Tablet PO 20 mg 0900,2100 HINA Administration Insulin Aspart 0 unit 05/02/20 21:00 05/09/20 21:15 Insulin Aspart 100 Unit/1 Ml SUBCUT 3 unit BEDTIME HINA Administration Protocol Insulin Aspart 0 unit 05/02/20 08:00 05/10/20 11:44 Insulin Aspart 100 Unit/1 Ml SUBCUT 2 unit TIDWM HINA Administration Protocol Levothyroxine Sodium 200 mcg 05/03/20 06:00 05/10/20 06:13 Levothyroxine 200 Mcg Tablet PO 200 mcg QAM HINA Administration Ondansetron HCl 4 mg 05/02/20 04:51 05/10/20 00:41 Ondansetron 2 Mg/Ml Sdv 2 Ml IVP 4 mg Q6H PRN Administration NAUSEA AND VOMITING Polyethylene Glycol 17 gm 05/05/20 18:00 05/10/20 10:06 Polyethylene Glycol 3350 Pkt 17 Gm PO Not Given BID HINA PFSH Acute PFSH: Medical History COPD (chronic obstructive pulmonary disease) Diabetes mellitus Essential hypertension Hyperlipidemia Hypothyroidism Left leg swelling On home oxygen therapy 3L bnc MARTITA (obstructive sleep apnea) On CPAP Pancreatitis Surgical History History of arthroscopy of knee History of hernia repair History of vasectomy Family History Father Cancer CVD (cardiovascular disease) Mother CVD (cardiovascular disease) Hypertension Social History Smoking and tobacco status: current every day smoker cigarettes Years cigarettes smoked: 48 [ Other cigarette details: down to 1/2 ppd from 2+ ppd ] Quit status (tobacco): considering quitting Second hand smoke exposure: No Alcohol intake: current Alcohol intake frequency: holidays/special occasions only Alcohol use comment: history of heavy alcohol use in past Lives independently: Yes Household members: family Housing: House Marital status: Single service: No Current occupational status: disabled Pets and animals: Yes History of recent travel: No Current gender identity: Male Vitals/I&O/Wt Last Vital Signs Temp 98.3 F 05/10/20 11:46 Pulse 67 05/10/20 11:46 Resp 16 05/10/20 11:46 BP 138/79 05/10/20 11:46 Pulse Ox 96 05/10/20 11:46 05/09/20 05/10/20 05/10/20 22:59 06:59 14:59 Intake Total 240 / 720 Output Total 0 / 0 280 / 280 Balance 240 / 720 0 / 720 -280 / -280 Physical Exam Narrative: EXAM NARRATIVE: GENERAL: The patient is alert and oriented times three. Not in any acute distress. Moderately obese HEENT: No significant pallor, icterus or lymphadenopathy. The pupils are reactant to light. Oral cavity: There are no mucous membrane lesions. Funduscopic examination: The disk margins appear to be sharp with no exudates or hemorrhages. NECK: Trachea appears to be central. No masses noted. No JVD or thyromegaly appreciated. No carotid bruit. RESPIRATORY: Chest is symmetrical. No intercostals muscle retraction or any accessory muscle activation. There is no chest wall tenderness. Breath sounds are heard bilaterally. No rales or rhonchi heard. No evidence of any consolidation. Density of the breath sounds are diminished in the bases. BREASTS: Deferred. HEART: The PMI could not be palpated. No palpable precordial events. S1 and S2 are normal. No S3 or S4 heard. No pericardial rub or any click heard. ABDOMEN: No vessel pulsations or distention. No tenderness. No organomegaly appreciated. No abdominal bruit. Bowel sounds are normally heard. : Deferred. EXTREMITIES: Features of chronic venous stasis in the left lower extremity. The dorsalis pedis and posterior pulses are palpable but somewhat weak bilaterally. MUSCULOSKELETAL: Gait is normal. There is no joint deformity or swelling noted. No joint tenderness or any effusion. The shoulder and hip joints appear to have normal range of motion. SKIN: Hyperpigmentation with this healed skin superficial skin ulcers in the left lower extremity NEUROPSYCHIATRIC: The patient is alert and oriented x3. Appears to be in a good mood. The higher functions are grossly within normal limits. No tremors or rigidity noted. Data Labs: Other Labs: Laboratory Last Values WBC 7.7 10^3/uL (4.0- 10.0) 05/10/20 05:27 RBC 4.23 10^6/uL (4.1 -5.3) 05/10/20 05:27 Hgb 13.7 g/dL (11.7-1 6.6) 05/10/20 05:27 Hct 41.7 % (42.0-52.0 ) L 05/10/20 05:27 MCV 98.6 fL (80-94) H 05/10/20 05:27 MCH 32.4 pg (28.0-34. 0) 05/10/20 05:27 MCHC 32.9 g/dL (30.0-3 6.0) 05/10/20 05:27 RDW 12.8 % (12.1-15.1 ) 05/10/20 05:27 Plt Count 168 10^3/cmm (130 -400) 05/10/20 05:27 MPV 10.7 fL (7.4-10.4 ) H 05/10/20 05:27 Neut % (Auto) 65.7 % 05/10/20 05:27 Lymph % (Auto) 19.9 % 05/10/20 05:27 [place] % (Auto) 10.3 % 05/10/20 05:27 Eos % (Auto) 3.4 % 05/10/20 05:27 Baso % (Auto) 0.3 % 05/10/20 05:27 Neut # (Auto) 5.03 10^3/uL (1.8 -7.7) 05/10/20 05:27 Lymph # (Auto) 1.5 10^3/uL (0.8- 4.8) 05/10/20 05:27 [place] # (Auto) 0.8 10^3/uL (0.2- 0.9) 05/10/20 05:27 Eos # (Auto) 0.3 10^3/uL (0.0- 0.8) 05/10/20 05:27 Baso # (Auto) 0.0 10^3/uL (0.0- 0.1) 05/10/20 05:27 Nucleated RBC % (a uto) 0 % 05/10/20 05:27 Nucleated RBCs # 0.0 /100WBC 05/10/20 05:27 PT 13.90 SECONDS (12 .1-14.9) 05/02/20 03:35 INR 1.04 (0.8-1.2) 05/02/20 03:35 APTT 31.1 SECONDS (23. 9-36.7) 05/02/20 03:35 Sodium 135 mmol/L (136-1 45) L 05/10/20 05:27 Potassium 4.3 mmol/L (3.5-5 .1) 05/10/20 05:27 Chloride 93 mmol/L (98-107 ) L 05/10/20 05:27 Carbon Dioxide 34 mmol/L (22-29) H 05/10/20 05:27 Anion Gap 12.3 (5-19) 05/10/20 05:27 BUN 10 mg/dL (6-20) 05/10/20 05:27 Creatinine 0.6 mg/dL (0.7-1. 2) L 05/10/20 05:27 GFR Calculation 138.4 mL/min (90- 130) H 05/10/20 05:27 Glucose 221 mg/dL (65-115 ) H 05/10/20 05:27 POC Glucose 165 mg/dL (70-110 ) H 05/10/20 10:48 Estimat Average Gl ucose 246 05/03/20 05:23 Hemoglobin A1c 10.2 % (4.0-6.0) H 05/03/20 05:23 Calculated Osmolal ity 286 mOsm/kg (285- 295) 05/10/20 05:27 Calcium 9.3 mg/dL (8.5-10 .5) 05/10/20 05:27 Phosphorus 3.2 mg/dL (2.5-4. 5) 05/09/20 05:30 Phosphorus Cancelled 05/09/20 05:30 Magnesium 1.8 mg/dL (1.7-2. 3) 05/09/20 05:30 Total Bilirubin 0.3 mg/dL (0.15-1 .2) 05/10/20 05:27 AST 11 U/L (0-40) 05/10/20 05:27 ALT 7 U/L (0-41) 05/10/20 05:27 Alkaline Phosphata se 63 IU/L (40-130) 05/10/20 05:27 Troponin T Gen 5 n g/L 25 ng/L (0-15) H 05/02/20 03:35 Troponin T Baselin e 26 ng/L (0-15) H 05/10/20 08:55 Troponin T 120 Min alfonso 25.43 ng/L (0-15) H 05/10/20 10:50 Delta Troponin T -0.57 ABS# (0-10) L 05/10/20 10:50 Troponin T Hi Sens 6Hr 23.36 ng/L (0-15) H 05/02/20 14:35 Troponin T Hi Sens 6Hr Delta 3.36 ng/L (0-12) 05/02/20 14:35 NT-Pro-B Natriuret Pep 825 pg/mL (0-125) H 05/02/20 03:35 Total Protein 6.6 g/dL (6.6-8.7 ) 05/10/20 05:27 Albumin 3.5 g/dL (3.5-5.2 ) 05/10/20 05:27 Globulin 3.1 g/dL (1.3-4.6 ) 05/10/20 05:27 Lipase 144 U/L (13-60) H 05/07/20 06:05 Urine Color Yellow (Yellow) 05/02/20 04:58 Urine Appearance Clear (CLEAR) 05/02/20 04:58 Urine pH 6 (5-7) 05/02/20 04:58 Ur Specific Gravit y 1.015 (1.005-1.0 30) 05/02/20 04:58 Urine Protein 1+ (Negative) H 05/02/20 04:58 Urine Glucose (UA) 4+ (Normal) H 05/02/20 04:58 Urine Ketones 1+ (Negative) H 05/02/20 04:58 Urine Blood Neg (Negative) 05/02/20 04:58 Urine Nitrate Negative (Negati ve) 05/02/20 04:58 Urine Bilirubin Neg (Negative) 05/02/20 04:58 Prot Sulfosalicyli c Acd Negative (Negati ve) 05/02/20 04:58 Urine Urobilinogen Norm mg/dL (Negat rojas) 05/02/20 04:58 Ur Leukocyte Marlin ase Negative (Negati ve) 05/02/20 04:58 Urine RBC Rare /hpf (0-2) 05/02/20 04:58 Urine WBC None /hpf (0-5) 05/02/20 04:58 Ur Squamous Epith Cells 0-4 /hpf (0-5) H 05/02/20 04:58 Amorphous Sediment Not Reportable 05/02/20 04:58 Urine Bacteria Trace /hpf (NONE) 05/02/20 04:58 EKG^: EKG 1: My Interpretation: Sinus rhythm with a left bundle branch block pattern. A&P Assessment and plan (1) Atypical chest pain: Patient chest pain is very atypical. However in view of the elevated baseline troponin T, elevated BNP, abnormal EKG and multiple risk factors for coronary disease, possibility of coronary ischemia causing this is a consideration. For further evaluation of the symptoms, an echocardiogram would be appropriate. Patient may benefit from a myocardial perfusion imaging which will be decided afterwards. Status: Acute (2) Acute on chronic diastolic (congestive) heart failure: Patient may be carefully treated with IV diuretics. Status: Acute (3) MARTITA (obstructive sleep apnea): Continue the current management. Status: Chronic (4) Diabetes mellitus: Aggressive management of their diabetes would be appropriate Status: Chronic Qualifiers: Diabetes mellitus type: type 2 Diabetes mellitus fpc insulin use: with fpc use Diabetes mellitus complication status: with skin complications Diabetes mellitus complication detail: with other skin complication Qualified Code(s): E11.628 - Type 2 diabetes mellitus with other skin complications; Z79.4 - exterminator helper termite (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 of insulin (5) Essential hypertension: The blood pressure is a stage II now. May optimize antihypertensive medications. Status: Chronic (6) Hyperlipidemia: Patient may continue the current medications. Status: Chronic Qualifiers: Hyperlipidemia type: unspecified Qualified Code(s): E78.5 - Hyperlipidemia, unspecified (7) Hypothyroidism: Clinically appears to be euthyroid. May continue the current medications. Status: Chronic Qualifiers: Hypothyroidism type: acquired Qualified Code(s): E03.9 - Hypothyroidism, unspecified Additional A&P Information Based on the patient's the clinical progress and the results of the above, further recommendations will be made. Thank you for the opportunity to eval this patient and make these recommendations Coding Level of Care Code Acute Precision Assembler for [facility] Fwd Diagnoses Atypical chest pain R07.89 Acute on chronic diastolic (congestive) heart failure I50.33 MARTITA (obstructive sleep apnea) G47.33 Diabetes mellitus E11.628; Z79.4 Diabetes mellitus type: type 2 Diabetes mellitus exterminator helper termite insulin use: with exterminator helper termite use Diabetes mellitus complication status: with skin complications Diabetes mellitus complication detail: with other skin complication Essential hypertension I10 Hyperlipidemia E78.5 Hyperlipidemia type: unspecified Hypothyroidism E03.9 Hypothyroidism type: acquired
--- NOTE | 2020-05-10 14:18 | P.PN_ITS ---
Subjective Subjective: Interval history: Patient reports chest pain this morning. There is some reproducible component. However the patient also reports that the chest pain is coming from inside even if we do not touch his chest. Denies shortness of breath. No diaphoresis. No nausea or vomiting. No fever or chills. Medications: Reviewed: Yes Medication Review Details: Generic Name Dose Route Start Last Admin Trade Name Freq PRN Reason Stop Dose Admin Acetaminophen 650 mg 05/02/20 06:48 05/09/20 21:19 Acetaminophen 32 5 Mg Tablet PO 650 mg Q6H PRN Administration Mild/Mod Pain Or Temp >/= 101 Albuterol Sulfate 2 puff 05/04/20 21:14 05/07/20 08:21 Albuterol 8 Gm M di INHALATION 2 puff Q4H.RESPIRATORY P RN Administration SOB if refuses ne b Aspirin 81 mg 05/10/20 10:00 05/10/20 10:21 Aspirin 81 Mg Ec Tablet PO 81 mg DAILY HINA Administration Bisacodyl 10 mg 05/02/20 07:33 05/06/20 08:03 Bisacodyl 5 Mg T ablet PO 10 mg DAILY PRN Administration CONSTIPATION Enoxaparin Sodium 40 mg 05/02/20 07:30 05/10/20 08:19 Enoxaparin 40 Mg /0.4 Ml Syringe SUBCUT 40 mg Q24H HINA Administration Famotidine 20 mg 05/04/20 21:00 05/10/20 08:18 Famotidine 20 Mg Tablet PO 20 mg 0900,2100 HNIA Administration Insulin Aspart 0 unit 05/02/20 21:00 05/09/20 21:15 Insulin Aspart 1 00 Unit/1 Ml SUBCUT 3 unit BEDTIME HINA Administration Protocol Insulin Aspart 0 unit 05/02/20 08:00 05/10/20 11:44 Insulin Aspart 1 00 Unit/1 Ml SUBCUT 2 unit TIDWM HINA Administration Protocol Levothyroxine Sodi um 200 mcg 05/03/20 06:00 05/10/20 06:13 Levothyroxine 20 0 Mcg Tablet PO 200 mcg QAM HINA Administration Ondansetron HCl 4 mg 05/02/20 04:51 05/10/20 00:41 Ondansetron 2 Mg /Ml Sdv 2 Ml IVP 4 mg Q6H PRN Administration NAUSEA AND VOMITI NG Polyethylene Glyco l 17 gm 05/05/20 18:00 05/10/20 10:06 Polyethylene Gly col 3350 Pkt 17 Gm PO Not Given BID HINA Vitals/I&O/Wt Last Vital Signs Temp 98.3 F 05/10/20 12:00 Pulse 67 05/10/20 12:00 Resp 16 05/10/20 12:00 BP 138/79 05/10/20 12:00 Pulse Ox 96 05/10/20 12:00 05/09/20 05/10/20 05/10/20 22:59 06:59 14:59 Intake Total 240 / 720 Output Total 0 / 0 280 / 280 Balance 240 / 720 0 / 720 -280 / -280 Physical Exam Narrative: EXAM NARRATIVE: Awake alert oriented x4. No acute distress. Mood and affect are appropriate. Responses are adequate. Skin is warm and dry. Moist mucous membranes. Eyes PERRLA, extraocular muscles are intact. Normal speech. Neck is supple. No JVD Lungs clear. No wheezes or crackles Heart S1, S2, regular Abdomen is obese, soft, nontender. No rebound or guarding. Bowel sounds are present. Mild bilateral pedal edema. No cyanosis or calf tenderness bilaterally Data : 05/10/20 05:27 05/10/20 05:27 A&P Assessment and plan (1) Constipation: Patient is complaining of severe constipation and persistent abdominal pain.He think that all the he has some other G/I Cause of abdominal pain and constipation. Lactulose as well as other laxatives were given. Patient was told that if his symptoms doesn't improve then he we can refer him to a GI Specialist.He understands. Repeat C.T abdomen and Pelvis ordered. Status: Acute (2) Acute pancreatitis: Ac Pancreatitis ( Resolved ) Continue IV fluids Carbohydrate consistent diet as tolerated Pain control Status: Acute Qualifiers: Acute pancreatitis complication: no infection or necrosis Pancreatitis type: alcohol induced Qualified Code(s): K85.20 - Alcohol induced acute pancreatitis without necrosis or infection (3) Diabetes mellitus: Type II, insulin requiring Status: Chronic Qualifiers: Diabetes mellitus type: type 2 Diabetes mellitus supervisor telephone information insulin use: with shelter use Diabetes mellitus complication status: with skin complications Diabetes mellitus complication detail: with other skin complication Qualified Code(s): E11.628 - Type 2 diabetes mellitus with other skin complications; Z79.4 - mixer operator helper hot metal (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 of insulin (4) Left bundle branch block: No prior EKGs for comparison Status: Acute (5) Essential hypertension: Appears well controlled currently Status: Chronic (6) COPD (chronic obstructive pulmonary disease): Not presently acute Status: Chronic Qualifiers: COPD type: emphysema Emphysema type: unspecified Qualified Code(s): J43.9 - Emphysema, unspecified (7) MARTITA (obstructive sleep apnea): Chronically on CPAP Status: Chronic (8) Hyperlipidemia: Chronically on statin Status: Chronic Qualifiers: Hyperlipidemia type: unspecified Qualified Code(s): E78.5 - Hyperlipidemia, unspecified (9) Hypothyroidism: Status: Chronic Qualifiers: Hypothyroidism type: acquired Qualified Code(s): E03.9 - Hypothyroidism, unspecified (10) Left leg swelling: Patient reports chronic in nature without recent change, has associated dermatitis Status: Chronic (11) Nicotine dependence, cigarettes, with other nicotine-induced disorders: Has significantly cut down on amount of smoking Status: Chronic (12) On home oxygen therapy: 3 L by nasal cannula continuous Status: Chronic Additional A&P Information Sliding scale insulin currently Continue albuterol Continue oral levothyroxine CPAP at night with nasal mask Continue home oxygen Pepcid for GI prophylaxis Lovenox for DVT prophylaxis Stool softeners Nicotine patch if needed [place] Abdominal pain. Initially was suspected to be secondary to acute pancreatitis which was confirmed by CT. Also, constipation was suspected to be one of the possible explanations. However the pain did not resolve after he had a bowel movement. The pain probably is not related to ventral hernia as well. There is no evidence of complications related to ventral hernia. On examination he has large ventral hernia without incarceration. Appreciate input from Dr. Groves. Probably the patient will have EGD at some point to rule out gastritis or peptic ulcer disease. We will continue pain management. Mild acute pancreatitis. Currently tolerating diet well. We will continue current management. Possible cirrhosis. CT does not show ascites. He has history of excessive alcohol intake. However currently his alcohol intake is very occasional. Alcohol cessation counseling is provided by me. Chest pain. Left bundle branch block. Mildly elevated troponin. Starting aspirin, statin and beta-bettie. Cardiology consultation. Appreciate Dr. Ge's input. Constipation. Resolved. Diabetes. Continue current management. Hypertension. Currently well controlled. Continue current management. Obstructive sleep apnea. CPAP as needed. DVT prophylaxis. Lovenox. The plan of care was discussed with the patient. He verbalized understanding and agreement. Discussed with Dr. Groves and Dr. Ge. Attestations Medical Necessity Statement*: The patient is still complaining of pain. Now has chest pain as well. Requires additional testing. Coding Level of Care Code Acute Pre Press Manager for [facility] Fwd Diagnoses Constipation K59.00 Acute pancreatitis K85.20 Acute pancreatitis complication: no infection or necrosis Pancreatitis type: alcohol induced Diabetes mellitus E11.628; Z79.4 Diabetes mellitus type: type 2 Diabetes mellitus supervisor telephone information insulin use: with shelter use Diabetes mellitus complication status: with skin complications Diabetes mellitus complication detail: with other skin complication Left bundle branch block I44.7 Essential hypertension I10 COPD (chronic obstructive pulmonary disease) J43.9 COPD type: emphysema Emphysema type: unspecified MARTITA (obstructive sleep apnea) G47.33 Hyperlipidemia E78.5 Hyperlipidemia type: unspecified Hypothyroidism E03.9 Hypothyroidism type: acquired Left leg swelling M79.89 Nicotine dependence, cigarettes, with other nicotine-induced disorders F17.218 On home oxygen therapy Z99.81
--- NOTE | 2020-05-10 14:27 | ECG_ITS ---
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 Measurements Intervals Geary Rate: 67 P: 5 RI: 188 QRS: 31 QRSD: 198 T: 195 QT: 486 QTc: 513 Interpretive Statements SINUS RHYTHM LEFT BUNDLE BRANCH BLOCK [120+ ms QRS DURATION, 80+ ms Q/S IN V1/V2, 85+ ms R IN I/aVL/V5/V6] Compared to ECG 05/10/2020 10:11:49 No significant changes Electronically Signed On 05-10-2020 17:53:42 CDT by Francisco Carrion M.D. [id number]
[2020-05-10 15:40] LABS: Troponin 5 6HR 24.17 ng/L (0-15)
[2020-05-10 15:52] LABS: Troponin 5 6HR Delta -1.83 ng/L (0-12)
[2020-05-10 16:56] LABS: Glucose Point of Care 153 mg/dL (70-110)
[2020-05-10] MEDS: carvedilol 3.125 mg Tablet PO (18:09)
[2020-05-10 19:59] LABS: Glucose Point of Care 374 mg/dL (70-110)
[2020-05-10] MEDS: atorvastatin 40 mg Tablet PO (21:18)
[2020-05-10] MEDS: insulin glargine 100 units/1 mL 20 UNIT SUBCUT (21:19)
[2020-05-11] VITALS (8 sets, daily range): BP systolic 118–157; BP diastolic 70–81; PULSE 59–81; RESP 17–19; TEMP 36.5–36.8; O2SAT 93–98
--- NOTE | 2020-05-11 00:08 | NMCV_ITS ---
NM selvin perf SPECT r/s* [id number] Amanuel Restrepo Age: 59 Gender: M : 1960 Exam Date: 05/11/2020 00:08 Ordering Phys: Kam Ge MD ([email or web address]) Technologist: JR Oliveros Exam Location: [facility] Indications: Abdominal pain, nausea STRESS TEST Please see separate stress test report in [facility] for full findings IMAGE PROTOCOL Rest/Stress 1 Lexiscan Day Radiopharmaceutical Dose (mCi) Administration Site Administered by Rest: Tc-99m 11.0 IV JR Oliveros Sestamibi Stress:Tc-99m 33.0 IV JR Oliveros Sestamibi Rest: 11-May-2020 60 Discovery 630 Stress: 11-May-2020 45 Discovery 630 0.4mg Lexiscan. Supine position only as patient was unable to lay prone. SPECT RESULTS Technical Quality: Good Raw Data Analysis: Normal Image Corrections: No attenuation or motion correction applied Summed Stress Score: 25 Summed Rest Score: 30 Summed Difference Score: 0 PERFUSION FINDINGS Areas of severely decreased tracer uptake in the basal, mid and apical inferior, inferoseptal, anteroseptal, and all the apical segments. Slightly decreases uptake also was noted in the mid inferolateral and mid anterior segments. No significant reversibility was noted in any of these areas. The LV cavity was found to be dilated. FUNCTIONAL RESULTS (calculated via Gated SPECT) Stress Image LV EF (%): 15 Stress EDV (mL):398 TID: 0.99 Stress ESV (mL):339 FUNCTIONAL FINDINGS: Severe diffuse hypokinesia of the anterior wall, inferior wall and LV apex IMPRESSIONS 1. Myocardial perfusion imaging revealing areas of severely decreased persistent tracer uptake in the inferior, inferoseptal, anteroseptal and apical segments suggestive of myocardial scarring in the distribution of the left and descending artery and right coronary artery predominantly with some involvement of the left circumflex artery as well. 2. Multiple wall motion normalities as mentioned above. 3. Markedly dilated LV cavity with an end-systolic volume of 339 mL 4. LV ejection fraction is estimated to be 15% No similar previous studies are available for comparison Dr Kam Ge MD [facility] (Electronically Signed) Final Date: 11 May 2020 12:42 S
[2020-05-11] MEDS: HYDROcodone-acetaminophen 5-325 mg Tablet 1 TAB PO ×2 (00:18→04:41)
[2020-05-11] MEDS: levothyroxine 200 mcg Tablet PO (05:56)
[2020-05-11 06:22] LABS: Chol HDL Ratio 3.07 mg/dL (1.0-5.00); Cholesterol 135 mg/dL (0-200); HDL Cholesterol 44 mg/dL (60-100); LDL Cholesterol Calculated 76 mg/dL (50-129); LDL HDL Ratio 1.73 RATIO (0.00-3.22); Triglycerides 75 mg/dL (0-150)
--- NOTE | 2020-05-11 06:23 | ECG_ITS ---
[facility] Test Date: 2020-05-11 Pat Name: Amanuel Restrepo Department: Room: 277 Gender: Male [employer] T[employer]: : 1960 Requested By: Kam Ge Order Number: [id number] Ish MD: Kam Ge M.D. Interpretive Statements NAME OF STUDY: LEXISCAN SESTAMIBI STRESS TEST INDICATION: Chest Pain PROCEDURE: At the baseline, the EKG revealed 100% V paced rhythm. The baseline blood pressure was 160/91 mm Hg with a heart rate of 65 beats/min. Lexiscan was infused over a period of 20 seconds. A total of 0.4 milligrams of Lexiscan was infused. The stress phase was continued for a total of 5 minutes. Heart rate at the end of the stress phase was 82 with a blood pressure 147/77. The EKG at the peak infusion revealed no significant changes. Sestamibi was injected 20 seconds after the Lexiscan infusion. Blood pressure at the end of the recovery phase was 148/73 with a heart rate of 80 per minute. CONCLUSION: 1. EKG response to Lexiscan infusion is uninterpretable due to baseline pacing artifact 2. No LexiScan induced chest pain or cardiac arrhythmia 3. Normal blood pressure and heart rate response 4. Sestamibi/sestamibi perfusion scan pending; see separate report. Electronically Signed On 05-19-2020 16:54:49 CDT by Kam Ge M.D. [email or web address]
[2020-05-11 06:49] LABS: Glucose Point of Care 155 mg/dL (70-110)
--- NOTE | 2020-05-11 07:41 | PC.NURSE ---
AT APPROX. 0740 PT WAS OFF UNIT FOR SCAN.
[2020-05-11] MEDS: regadenoson 0.4 Mg/5 ml Syringe IVP (08:25)
--- NOTE | 2020-05-11 09:24 | PC.SOCIAL ---
IMM Update Pg.2 of IMM updated. Copy provided at bedside to patient.
--- NOTE | 2020-05-11 09:40 | USCV_ITS ---
Aleksandarkaren Amanuel Age: 59 Gender: M : 1960 Exam Date: 05/11/2020 10:43 Ordering Phys: Kam Ge MD ([email or web address]) Technologist: Luis Arenas Exam Location: [facility] [place] Indication: CP AND SOB BP: 135 / 74 HR: 65 Rhythm: Sinus Technical Quality: Adequate MEASUREMENTS (Male / Female) Normal Values 2D ECHO LV Diastolic Diameter PLAX 7.5 cm 4.2 - 5.9 / 3.9 - 5.3 cm LV Systolic Diameter PLAX 5.4 cm IVS Diastolic Thickness 1.4 cm 0.6 - 1.0 / 0.6 - 0.9 cm IVS Systolic Thickness 1.6 cm LVPW Diastolic Thickness 1.6 cm 0.6 - 1.0 / 0.6 - 0.9 cm LVPW Systolic Thickness 1.5 cm LVOT Diameter 2.1 cm LV Ejection Fraction 2D Teich 47.2 % LV Ejection Fraction MOD 2C 30.9 % LV Ejection Fraction 2C AL 31.0 % LA Diameter 3.8 cm LA Width 4.6 cm LA Height 4.8 cm RA Width 4.2 cm RA Height 3.8 cm M-MODE LV Diastolic Diameter MM 7.8 cm 4.2 - 5.9 / 3.9 - 5.3 cm LV Systolic Diameter MM 7.1 cm LV Ejection Fraction MM Teich 19.2 % IVS Diastolic Thickness MM 1.2 cm 0.6 - 1.0 / 0.6 - 0.9 cm IVS Systolic Thickness MM 1.6 cm LVPW Diastolic Thickness MM 1.8 cm 0.6 - 1.0 / 0.6 - 0.9 cm LVPW Systolic Thickness MM 2.5 cm RV Diastolic Diameter MM 1.7 cm Aortic Annulus Diameter 3.3 cm LA Ao Ratio MM 1.1 MV E Point Septal Separation 2.4 cm DOPPLER AV Peak Velocity 127.0 cm/s LVOT Peak Velocity 79.0 cm/s AV Area Cont Eq vti 2.3 cm squared AV Area Cont Eq pk 2.1 cm squared MV Area PHT 5.0 cm squared Mitral E to A Ratio 0.7 MV E' Velocity 32.0 cm/s Mitral E to MV E' Ratio 16.7 Mitral E to LV E' Lateral Ratio 17.2 Mitral E to LV E' Septal Ratio 16.2 TR Peak Velocity 127.0 cm/s TR Peak Gradient 6.5 mmHg TV Peak E Velocity 73.0 cm/s Right Atrial Pressure 3.0 mmHg Pulmonary Artery Systolic Pressu 9.5 mmHg PV Peak Velocity 101.0 cm/s FINDINGS Left Ventricle Severe diffuse hypokinesia left ventricle with somewhat dyskinetic apex. LV ejection fraction around 20 to 25%. Moderately dilated LV cavityGrade I/IV diastolic dysfunction (abnormal relaxation filling pattern), normal to mildly elevated filling pressures. Right Ventricle Normal right ventricular size and systolic function. Right Atrium Mildly increased right atrial size. Left Atrium Mildly increased left atrial size. Mitral Valve Thickened mitral valve. Aortic Valve Thickened aortic valve. Tricuspid Valve No gross abnormalities noted Pulmonic Valve Pulmonic valve not well visualized. Pericardium No pericardial effusion. Aorta Normal aortic annulus size. CONCLUSIONS Severe diffuse hypokinesia left ventricle with somewhat dyskinetic apex. LV ejection fraction around 20 to 25%. Moderately dilated LV cavity. Grade I/IV diastolic dysfunction (abnormal relaxation filling pattern), normal to mildly elevated filling pressures. Mild biatrial enlargement Thickened aortic and mitral valves No significant stenotic or regurgitant lesions No similar previous studies are available for comparison Dr Kam Ge MD [facility] (Electronically Signed) Final Date: 11 May 2020 12:49 S
--- NOTE | 2020-05-11 10:02 | PC.NURSE ---
PT BACK FROM SCAN AT APPROX 0950
[2020-05-11] MEDS: carvedilol 3.125 mg Tablet PO ×2 (10:26→17:49)
[2020-05-11] MEDS: famotidine 20 mg Tablet PO ×2 (10:26→20:52)
[2020-05-11] MEDS: enoxaparin 40 mg/0.4 mL Syringe SUBCUT (10:29)
[2020-05-11] MEDS: lisinopril 10 mg Tablet PO (10:30)
[2020-05-11] MEDS: aspirin 81 mg EC Tablet PO (10:30)
--- NOTE | 2020-05-11 10:43 | P.PN_ITS ---
Subjective Subjective: Interval history: Patient had chest pain yesterday and EGD was postponed today. He is getting a cardiac stress test now Vitals/I&O/Wt Last Vital Signs Temp 97.9 F 05/11/20 04:11 Pulse 81 05/11/20 08:47 Resp 18 05/11/20 04:11 BP 148/73 05/11/20 08:47 Pulse Ox 93 05/11/20 04:11 05/10/20 05/11/20 05/11/20 22:59 06:59 14:59 Intake Total 240 / 240 Balance 240 / -40 Data : 05/10/20 05:27 05/10/20 05:27 A&P Assessment and plan (1) Abdominal pain: 59-year-old male with persistent abdominal pain which could be secondary to persistent pancreatitis. Patient has had a prior ventral hernia repair and the mesh is retracted but there is no evidence of hernia recurrence. Discussed with the patient that tenderness over the hernia repair site could be likely secondary to scar tissue there is no evidence of obstruction requiring surgical intervention. We will hold off on EGD at this point until cardiac clearance Continue PPI Diet as tolerated. Status: Acute (2) Acute pancreatitis: Lipase is down to 144 from 979 on admission and repeat CT scan showed mild peripancreatic fat haziness. 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
--- NOTE | 2020-05-11 11:46 | P.PN_ITS ---
Subjective Subjective: Interval history: Doing okay. Denies chest pain or shortness of breath. Epigastric and mid abdominal pain. No nausea or vomiting. No chills. No diarrhea. Medications: Reviewed: Yes Medication Review Details: Generic Name Dose Route Start Last Admin Trade Name Freq PRN Reason Stop Dose Admin Acetaminophen 650 mg 05/02/20 06:48 05/09/20 21:19 Acetaminophen 32 5 Mg Tablet PO 650 mg Q6H PRN Administration Mild/Mod Pain Or Temp >/= 101 Hydrocodone Bitart /Acetaminophen 1 tab 05/10/20 12:06 05/11/20 04:41 Hydrocodone-Acet aminophen 5-325 Mg Tablet PO 1 tab Q4H PRN Administration MODERATE PAIN Albuterol Sulfate 2 puff 05/04/20 21:14 05/07/20 08:21 Albuterol 8 Gm M di INHALATION 2 puff Q4H.RESPIRATORY P RN Administration SOB if refuses ne b Aspirin 81 mg 05/10/20 10:00 05/11/20 10:30 Aspirin 81 Mg Ec Tablet PO 81 mg DAILY HINA Administration Atorvastatin Calci um 40 mg 05/10/20 21:00 05/10/20 21:18 Atorvastatin 40 Mg Tablet PO 40 mg BEDTIME HINA Administration Bisacodyl 10 mg 05/02/20 07:33 05/06/20 08:03 Bisacodyl 5 Mg T ablet PO 10 mg DAILY PRN Administration CONSTIPATION Carvedilol 3.125 mg 05/10/20 18:00 05/11/20 10:26 Carvedilol 3.125 Mg Tablet PO 3.125 mg BID HINA Administration Enoxaparin Sodium 40 mg 05/02/20 07:30 05/11/20 10:29 Enoxaparin 40 Mg /0.4 Ml Syringe SUBCUT 40 mg Q24H HINA Administration Famotidine 20 mg 05/04/20 21:00 05/11/20 10:26 Famotidine 20 Mg Tablet PO 20 mg 0900,2100 HINA Administration Insulin Aspart 0 unit 05/02/20 21:00 05/10/20 21:18 Insulin Aspart 1 00 Unit/1 Ml SUBCUT 6 unit BEDTIME HINA Administration Protocol Insulin Aspart 0 unit 05/02/20 08:00 05/11/20 10:24 Insulin Aspart 1 00 Unit/1 Ml SUBCUT 2 unit TIDWM HINA Administration Protocol Insulin Glargine 20 unit 05/10/20 21:00 05/10/20 21:19 Insulin Glargine 100 Units/1 Ml SUBCUT 20 unit BEDTIME HINA Administration Levothyroxine Sodi um 200 mcg 05/03/20 06:00 05/11/20 05:56 Levothyroxine 20 0 Mcg Tablet PO 200 mcg QAM HINA Administration Lisinopril 10 mg 05/11/20 09:00 05/11/20 10:30 Lisinopril 10 Mg Tablet PO 10 mg DAILY HINA Administration Ondansetron HCl 4 mg 05/02/20 04:51 05/10/20 00:41 Ondansetron 2 Mg /Ml Sdv 2 Ml IVP 4 mg Q6H PRN Administration NAUSEA AND VOMITI NG Polyethylene Glyco l 17 gm 05/05/20 18:00 05/11/20 10:30 Polyethylene Gly col 3350 Pkt 17 Gm PO Not Given BID HINA Vitals/I&O/Wt Last Vital Signs Temp 97.9 F 05/11/20 04:11 Pulse 81 05/11/20 08:47 Resp 18 05/11/20 04:11 BP 148/73 05/11/20 08:47 Pulse Ox 93 05/11/20 04:11 05/10/20 05/11/20 05/11/20 22:59 06:59 14:59 Intake Total 240 / 240 Balance 240 / -40 Physical Exam Narrative: EXAM NARRATIVE: Awake alert oriented x4. No acute distress. Mood and affect are appropriate. Responses are adequate. Skin is warm and dry. Moist mucous membranes. Eyes PERRLA, extraocular muscles are intact. Normal speech. Neck is supple. No JVD Lungs clear. No wheezes or crackles Heart S1, S2, regular Abdomen is obese, soft, mild tenderness in mid abdomen. No rebound or guarding. Bowel sounds are present. Mild bilateral pedal edema. No cyanosis or calf tenderness bilaterally Data : 05/10/20 05:27 05/10/20 05:27 A&P Assessment and plan (1) Constipation: Patient is complaining of severe constipation and persistent abdominal pain.He think that all the he has some other G/I Cause of abdominal pain and constipation. Lactulose as well as other laxatives were given. Patient was told that if his symptoms doesn't improve then he we can refer him to a GI Specialist.He understands. Repeat C.T abdomen and Pelvis ordered. Status: Acute (2) Acute pancreatitis: Ac Pancreatitis ( Resolved ) Continue IV fluids Carbohydrate consistent diet as tolerated Pain control Status: Acute Qualifiers: Acute pancreatitis complication: no infection or necrosis Pancreatitis type: alcohol induced Qualified Code(s): K85.20 - Alcohol induced acute pancreatitis without necrosis or infection (3) Diabetes mellitus: Type II, insulin requiring Status: Chronic Qualifiers: Diabetes mellitus type: type 2 Diabetes mellitus chcf insulin use: with chcf use Diabetes mellitus complication status: with skin complications Diabetes mellitus complication detail: with other skin complication Qualified Code(s): E11.628 - Type 2 diabetes mellitus with other skin complications; Z79.4 - MCC (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 of insulin (4) Left bundle branch block: No prior EKGs for comparison Status: Acute (5) Essential hypertension: Appears well controlled currently Status: Chronic (6) COPD (chronic obstructive pulmonary disease): Not presently acute Status: Chronic Qualifiers: COPD type: emphysema Emphysema type: unspecified Qualified Code(s): J43.9 - Emphysema, unspecified (7) MARTITA (obstructive sleep apnea): Chronically on CPAP Status: Chronic (8) Hyperlipidemia: Chronically on statin Status: Chronic Qualifiers: Hyperlipidemia type: unspecified Qualified Code(s): E78.5 - Hyperlipidemia, unspecified (9) Hypothyroidism: Status: Chronic Qualifiers: Hypothyroidism type: acquired Qualified Code(s): E03.9 - Hypothyroidism, unspecified (10) Left leg swelling: Patient reports chronic in nature without recent change, has associated dermatitis Status: Chronic (11) Nicotine dependence, cigarettes, with other nicotine-induced disorders: Has significantly cut down on amount of smoking Status: Chronic (12) On home oxygen therapy: 3 L by nasal cannula continuous Status: Chronic Additional A&P Information Sliding scale insulin currently Continue albuterol Continue oral levothyroxine CPAP at night with nasal mask Continue home oxygen Pepcid for GI prophylaxis Lovenox for DVT prophylaxis Stool softeners Nicotine patch if needed [place] Abdominal pain. Most likely secondary to acute pancreatitis which was confirmed by CT. ?Chronic pancreatitis. Also, constipation was suspected to be one of the possible explanations. However the pain did not resolve after he had a bowel movement. The pain probably is not related to ventral hernia as well. There is no evidence of complications related to ventral hernia. On examination he has large ventral hernia without incarceration. Appreciate input from Dr. Groves. Probably the patient will have EGD at some point to rule out gastritis or peptic ulcer disease. We will continue pain management. Mild acute pancreatitis. Currently tolerating diet well. We will continue current management. Possible cirrhosis. CT does not show ascites. He has history of excessive alcohol intake. However currently his alcohol intake is very occasional. Alcohol cessation counseling is provided by me. Chest pain. Left bundle branch block. Mildly elevated troponin. Continue aspirin, statin and beta-bettie. Echo and stress test results are pending. Appreciate Dr. Ge's input. Constipation. Resolved. Diabetes. Continue current management. Hypertension. Currently well controlled. Continue current management. Obstructive sleep apnea. CPAP as needed. DVT prophylaxis. Lovenox. The plan of care was discussed with the patient. He verbalized understanding and agreement. Discussed with Dr. Groves and Dr. Ge. Attestations Medical Necessity Statement*: Pending cardiac work-up. 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 [facility]wd Diagnoses Constipation K59.00 Acute pancreatitis K85.20 Acute pancreatitis complication: no infection or necrosis Pancreatitis type: alcohol induced Diabetes mellitus E11.628; Z79.4 Diabetes mellitus type: type 2 Diabetes mellitus chcf insulin use: with chcf use Diabetes mellitus complication status: with skin complications Diabetes mellitus complication detail: with other skin complication Left bundle branch block I44.7 Essential hypertension I10 COPD (chronic obstructive pulmonary disease) J43.9 COPD type: emphysema Emphysema type: unspecified MARTITA (obstructive sleep apnea) G47.33 Hyperlipidemia E78.5 Hyperlipidemia type: unspecified Hypothyroidism E03.9 Hypothyroidism type: acquired Left leg swelling M79.89 Nicotine dependence, cigarettes, with other nicotine-induced disorders F17.218 On home oxygen therapy Z99.81
[2020-05-11 11:47] LABS: Glucose Point of Care 130 mg/dL (70-110)
[2020-05-11] MEDS: ondansetron 2 mg/ML SDV 2 mL 4 MG IVP (12:52)
--- NOTE | 2020-05-11 14:19 | P.PN_ITS ---
Subjective Subjective: Interval history: Patient is an echocardiogram today. He was found to have severe diffuse hypokinesia of the left ventricle with ejection fraction around 20 to 25%. The left ventricle was found to be dilated. The myocardial perfusion imaging revealed extensive scarring in the inferior, inferolateral septal, anteroseptal and apical regions. The LV ejection fraction was 15% by the perfusion scan. LV cavity was found to be markedly dilated. Medications: Reviewed: Yes Medication Review Details: Current Medications Acetaminophen (Acetaminophen 325 Mg Tablet) 650 mg PO Q6H PRN PRN Reason: Mild/Mod Pain Or Temp >/= 101 Last Admin: 05/09/20 21:19 Dose: 650 mg Documented by: Hydrocodone Bitart/Acetaminophen (Hydrocodone-Acetaminophen 5-325 Mg Tablet) 1 tab PO Q4H PRN PRN Reason: MODERATE PAIN Last Admin: 05/11/20 04:41 Dose: 1 tab Documented by: Al Hydrox/Mg Hydrox/Simethicone (Bplp-Wxo-Wsoolgfds-Amber 30 Ml Udc) 15 ml PO Q4H PRN PRN Reason: INDIGESTION Albuterol Sulfate (Albuterol 8 Gm Mdi) 2 puff INHALATION Q4H.RESPIRATORY PRN PRN Reason: SOB if refuses neb Last Admin: 05/07/20 08:21 Dose: 2 puff Documented by: Albuterol/Ipratropium (Ipratropium-Albuterol 3 Ml Neb) 3 ml INHALATION Q6H.RESPIRATORY PRN PRN Reason: SHORTNESS OF BREATH Aminophylline (Aminophylline 25 Mg/Ml Sdv 10 Ml) 25 mg IVP Q2M PRN PRN Reason: see dose instructions Stop: 05/12/20 06:23 Aspirin (Aspirin 81 Mg Ec Tablet) 81 mg PO DAILY [facility] Last Admin: 05/11/20 10:30 Dose: 81 mg Documented by: Atorvastatin Calcium (Atorvastatin 40 Mg Tablet) 40 mg PO BEDTIME [facility] Last Admin: 05/10/20 21:18 Dose: 40 mg Documented by: Bisacodyl (Bisacodyl 5 Mg Tablet) 10 mg PO DAILY PRN PRN Reason: CONSTIPATION Last Admin: 05/06/20 08:03 Dose: 10 mg Documented by: Carvedilol (Carvedilol 3.125 Mg Tablet) 3.125 mg PO BID [facility] Last Admin: 05/11/20 10:26 Dose: 3.125 mg Documented by: Dextrose (Dextrose 50% Syringe 50 Ml) 25 ml IVP ONCE PRN; Protocol PRN Reason: hypoglycemia protocol Dextrose (Dextrose 50% Syringe 50 Ml) 50 ml IVP PRN PRN; Protocol PRN Reason: hypoglycemia protocol Enoxaparin Sodium (Enoxaparin 40 Mg/0.4 Ml Syringe) 40 mg SUBCUT Q24H [facility] Last Admin: 05/11/20 10:29 Dose: 40 mg Documented by: Famotidine (Famotidine 20 Mg Tablet) 20 mg PO 0900,2100 [facility] Last Admin: 05/11/20 10:26 Dose: 20 mg Documented by: Glucagon (Glucagon 1 Mg/Ml Inj 1 Ml) 1 mg IM ONCE PRN; Protocol PRN Reason: Adult Acute Hypoglycemia Prot. Dextrose (D5w) 500 mls @ 100 mls/hr IV ONCE PRN; Protocol PRN Reason: Adult Acute Hypoglycemia Prot Insulin Aspart (Insulin Aspart 100 Unit/1 Ml) 0 unit SUBCUT BEDTIME [facility]; Protocol Last Admin: 05/10/20 21:18 Dose: 6 unit Documented by: Insulin Aspart (Insulin Aspart 100 Unit/1 Ml) 0 unit SUBCUT TIDWM [facility]; Protocol Last Admin: 05/11/20 12:00 Dose: Not Given Documented by: Insulin Glargine (Insulin Glargine 100 Units/1 Ml) 20 unit SUBCUT BEDTIME [facility] Last Admin: 05/10/20 21:19 Dose: 20 unit Documented by: Levothyroxine Sodium (Levothyroxine 200 Mcg Tablet) 200 mcg PO QAM [facility] Last Admin: 05/11/20 05:56 Dose: 200 mcg Documented by: Lisinopril (Lisinopril 10 Mg Tablet) 10 mg PO DAILY [facility] Last Admin: 05/11/20 10:30 Dose: 10 mg Documented by: Magnesium Hydroxide (Magnesium Hydroxide 30 Ml Udc) 15 ml PO BEDTIME PRN PRN Reason: CONSTIPATION Nicotine (Nicotine 14 Mg Patch) 1 patch TRANSDERMA DAILY PRN PRN Reason: nicotine withdrawal Nitroglycerin (Nitroglycerin 0.4 Mg Sublingual Tablet) 0.4 mg SUBLINGUAL Q5M PRN PRN Reason: CHEST PAIN Stop: 05/12/20 06:23 Ondansetron HCl (Ondansetron 2 Mg/Ml Sdv 2 Ml) 4 mg IVP Q6H PRN PRN Reason: NAUSEA AND VOMITING Last Admin: 05/11/20 12:52 Dose: 4 mg Documented by: Ondansetron HCl (Ondansetron 2 Mg/Ml Sdv 2 Ml) 4 mg IVP Q2M PRN PRN Reason: NAUSEA Polyethylene Glycol (Polyethylene Glycol 3350 Pkt 17 Gm) 17 gm PO BID [facility] Last Admin: 05/11/20 10:30 Dose: Not Given Documented by: Sodium Phosphate (Fleet Enema 133 Ml Enema) 133 ml ND DAILY PRN PRN Reason: CONSTIPATION Vitals/I&O/Wt Last Vital Signs Temp 97.9 F 05/11/20 04:11 Pulse 81 05/11/20 08:47 Resp 18 05/11/20 04:11 BP 148/73 05/11/20 08:47 Pulse Ox 93 05/11/20 04:11 05/10/20 05/11/20 05/11/20 22:59 06:59 14:59 Intake Total 240 / 240 Balance 240 / -40 Physical Exam Narrative: EXAM NARRATIVE: GENERAL: The patient is alert and oriented times three. Not in any acute distress. Moderately obese HEENT: No significant pallor, icterus or lymphadenopathy. are reactant to light. Oral cavity: There are no mucous membrane lesions. NECK: Trachea appears to be central. No masses noted. No JVD or thyromegaly appreciated. No carotid bruit. RESPIRATORY: Chest is symmetrical. No intercostals muscle retraction or any accessory muscle activation. There is no chest wall tenderness. Breath sounds are heard bilaterally. No rales or rhonchi heard. No evidence of any consolidation. Density of the breath sounds are diminished in the bases. BREASTS: Deferred. HEART: The PMI could not be palpated. No palpable precordial events. S1 and S2 are normal. No S3 or S4 heard. No pericardial rub or any click heard. ABDOMEN: No vessel pulsations or distention. No tenderness. No organomegaly efrem reciated. No abdominal bruit. Bowel sounds are normally heard. : Deferred. EXTREMITIES: Features of chronic venous stasis in the left lower extremity. The dorsalis pedis and posterior pulses are palpable but somewhat weak bilaterally. MUSCULOSKELETAL: No acute joint deformities or swelling SKIN: Hyperpigmentation with this healed skin superficial skin ulcers in the left lower extremity NEUROPSYCHIATRIC: The patient is alert and oriented x3. Appears to be in a good mood. The higher functions are grossly within normal limits. No tremors or rigidity noted. Data : 05/12/20 05:28 05/12/20 05:28 A&P Assessment and plan (1) Atypical chest pain: I discussed the the findings in the echocardiogram and the Miochol perfusion imaging with the patient. In view of the patient's chest pain, heart failure, severe LV dysfunction and the abnormal myocardial perfusion imaging, in order to further evaluate his coronary status as well as the hemodynamics, a left and right heart catheterization would be appropriate. This was discussed the patient detail which he understood well and consented to proceed. We may go ahead and schedule this procedure as early as possible Status: Acute (2) Acute on chronic diastolic (congestive) heart failure: May start the patient on Lasix 20 mg p.o. daily and spironolactone 25 mg p.o. daily. Will discontinue the lisinopril and start him on losartan 25 mg p.o. daily. We may transition him to Entresto later on. Continue on your current medications as it is. Status: Acute (3) MARTITA (obstructive sleep apnea): Continue the current management. Status: Chronic (4) Diabetes mellitus: Aggressive management of their diabetes would be appropriate Status: Chronic Qualifiers: Diabetes mellitus complication detail: with other skin complication Diabetes mellitus complication status: with skin complications Diabetes mellitus jail insulin use: with jail use Diabetes mellitus type: type 2 Qualified Code(s): E11.628 - Type 2 diabetes mellitus with other skin comp lications; Z79.4 - [facility] (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 of insulin (5) Essential hypertension: The blood pressure is a stage II now. May optimize antihypertensive medications. Status: Chronic (6) Hyperlipidemia: Patient may continue the Lipitor. Status: Chronic Qualifiers: Hyperlipidemia type: unspecified Qualified Code(s): E78.5 - Hyperlipidemia, unspecified (7) Hypothyroidism: Clinically appears to be euthyroid. May continue the current medications. Status: Chronic Qualifiers: Hypothyroidism type: acquired Qualified Code(s): E03.9 - Hypothyroidism, unspecified Additional A&P Information Based on the patient's clinical progress and the results of the above, further management decisions will be made. Attestations Medical Necessity Statement*: Patient requires continued hospital stay for cl ose monitoring and further management Coding Level of Care Code Acute Machine Feeder Raw Stock for Chg Fwd Diagnoses Atypical chest pain R07.89 Acute on chronic diastolic (congestive) heart failure I50.33 MARTITA (obstructive sleep apnea) G47.33 Diabetes mellitus E11.628; Z79.4 Diabetes mellitus complication detail: with other skin complication Diabetes mellitus complication status: with skin complications Diabetes mellitus jail insulin use: with manager long term care use Diabetes mellitus type: type 2 Essential hypertension I10 Hyperlipidemia E78.5 Hyperlipidemia type: unspecified Hypothyroidism E03.9 Hypothyroidism type: acquired
[2020-05-11 17:10] LABS: Glucose Point of Care 174 mg/dL (70-110)
[2020-05-11 20:15] LABS: Glucose Point of Care 206 mg/dL (70-110)
[2020-05-11] MEDS: atorvastatin 40 mg Tablet PO (20:52)
[2020-05-11] MEDS: insulin glargine 100 units/1 mL 20 UNIT SUBCUT (20:52)
[2020-05-12] VITALS (33 sets, daily range): BP systolic 105–166; BP diastolic 50–88; PULSE 56–75; RESP 15–95; TEMP 36.4–36.8; O2SAT 90–99
--- NOTE | 2020-05-12 00:42 | ECG_ITS ---
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 Measurements Intervals [place] Rate: 69 P: 44 GA: 192 QRS: -18 QRSD: 198 T: 133 QT: 492 QTc: 530 Interpretive Statements SINUS RHYTHM LEFT BUNDLE BRANCH BLOCK [120+ ms QRS DURATION, 80+ ms Q/S IN V1/V2, 85+ ms R IN I/aVL/V5/V6] Compared to ECG 05/10/2020 14:40:08 No significant changes Electronically Signed On 05-12-2020 18:15:23 CDT by Prachi Sheldon M.D. [id number]
[2020-05-12] MEDS: HYDROcodone-acetaminophen 5-325 mg Tablet 1 TAB PO (02:48)
[2020-05-12 06:14] LABS: Basophils % 0.5 %; Eosinophils # 0.3 10^3/uL (0.0-0.8); Eosinophils % 4.5 %; Hematocrit 40.5 % (42.0-52.0); Hemoglobin 13.1 g/dL (11.7-16.6); Lymphocytes # 1.7 10^3/uL (0.8-4.8); Lymphocytes % 28.6 %; Mean Corpuscular HGB Conc 32.3 g/dL (30.0-36.0); Mean Platelet Volume 10.5 fL (7.4-10.4); Monocytes # 0.6 10^3/uL (0.2-0.9); Monocytes % 10.6 %; Neutrophils # 3.23 10^3/uL (1.8-7.7); Neutrophils % 55.5 %; Nucleated Red Blood Cells % 0 %; Platelet Count 171 10^3/cmm (130-400); Red Blood Count 4.09 10^6/uL (4.1-5.3); Red Cell Distribution Width 12.7 % (12.1-15.1); White Blood Count 5.8 10^3/uL (4.0-10.0)
[2020-05-12 06:28] LABS: Glucose Point of Care 156 mg/dL (70-110)
[2020-05-12] MEDS: levothyroxine 200 mcg Tablet PO (06:29)
[2020-05-12 06:35] LABS: Alanine Aminotransferase 10 U/L (0-41); Albumin Level 3.3 g/dL (3.5-5.2); Alkaline Phosphatase 61 IU/L (40-130); Anion Gap 10.7 (5-19); Aspartate Amino Transferase 14 U/L (0-40); Blood Urea Nitrogen 11 mg/dL (6-20); Calcium 8.7 mg/dL (8.5-10.5); Carbon Dioxide 34 mmol/L (22-29); Chloride 93 mmol/L (98-107); Globulin 3.2 g/dL (1.3-4.6); Glomerular Filtration Rate 138.4 mL/min (90-130); Glucose 147 mg/dL (65-115); Osmolality Calculated 278 mOsm/kg (285-295); Potassium 4.7 mmol/L (3.5-5.1); Sodium 133 mmol/L (136-145); Total Bilirubin 0.4 mg/dL (0.15-1.2); Total Protein 6.5 g/dL (6.6-8.7)
[2020-05-12] MEDS: famotidine 20 mg Tablet PO ×2 (08:04→22:02)
[2020-05-12] MEDS: polyethylene glycol 3350 Pkt 17 gm PO (08:04)
[2020-05-12] MEDS: aspirin 81 mg EC Tablet PO (08:04)
[2020-05-12] MEDS: carvedilol 3.125 mg Tablet PO ×2 (08:05→18:15)
[2020-05-12] MEDS: FUROsemide 20 mg Tablet PO (08:05)
[2020-05-12] MEDS: spironolactone 25 mg Tablet PO (08:05)
[2020-05-12] MEDS: losartan 50 mg Tablet 25 MG PO (08:05)
[2020-05-12] MEDS: sodium chloride 0.9% 1,000 ML 50 ML IV (08:10)
[2020-05-12 12:19] LABS: Glucose Point of Care 192 mg/dL (70-110)
--- NOTE | 2020-05-12 12:45 | PC.CHAP ---
Pastoral Care Encounter/Spiritual Assessment Type of Contact [] Declined psychology professor visit [] Patient/Family/Request visit [] Outpatient visit [] Follow-up visit [] Physician referral [] Code/Alert [] Routine visit [] Staff referral [] Actively dying [] Patient sleeping [] Family support [] [] Out of room [] Palliative care [] [] Receiving care in room [] Pre-surgical visit [] Trauma [] Long length of stay [] ICU visit [xx] Other: Patient n phone Relational/Emotional Strength [] Patient feels connected with others/family/visitors/staff [] Distress [] Loneliness/isolation [] Abandonment Spirituality of Patient [] Person of Yvrose [] Attends Hindu of their Yvrose [] Believes in Prayer [] Reads Bible or Temple materials [] There are Spiritual issues to be addressed Director Of Acquisition Marketing Interventions [] Prayer [] Active listening [] Non-anxious presence [] Spiritual/emotional support [] Crisis/trauma care [] Spiritual counseling [] Bereavement support [] Provided bereavement packet [] Provided Bible/devotional materials [] Provided toy/stuffed animal, coloring book to patient or family member [] Provided Communion [] Anointing/[place] [] Salvation [] Completed spiritual assessment [] Other: Impact on Illness or Injury [] Angry [] Fearful [] Anxious [] Often cries [] Exhaustion [] Unable to work [] Unable to attend scientology [] Unable to walk/stand [] Unable to read [] Unable to drive [] Unable to eat/drink [] Unable to sleep [] Unable to be with family [] Patient intubated [] Other: Summary Patient has spent multiple days in hospital in April -- in and out for various reasons. Patient was on his cell phone and did not want to be disturbed with visit from psychology professor. Time spent with patient 1 minute
--- NOTE | 2020-05-12 14:04 | PM.PN ---
Subjective Subjective: Interval history: Patient denies any chest pain. He has the baseline shortness of breath with activities. Denies any fever or chills. Abdominal pain has significantly improved. No other specific complaints. Medications: Reviewed: Yes Medication Review Details: Current Medications Acetaminophen (Acetaminophen 325 Mg Tablet) 650 mg PO Q6H PRN PRN Reason: Mild/Mod Pain Or Temp >/= 101 Last Admin: 05/09/20 21:19 Dose: 650 mg Documented by: Hydrocodone Bitart/Acetaminophen (Hydrocodone-Acetaminophen 5-325 Mg Tablet) 1 tab PO Q4H PRN PRN Reason: MODERATE PAIN Last Admin: 05/12/20 02:48 Dose: 1 tab Documented by: Al Hydrox/Mg Hydrox/Simethicone (Hluw-Xca-Vgqnrhhdj-Amber 30 Ml Udc) 15 ml PO Q4H PRN PRN Reason: INDIGESTION Albuterol Sulfate (Albuterol 8 Gm Mdi) 2 puff INHALATION Q4H.RESPIRATORY PRN PRN Reason: SOB if refuses neb Last Admin: 05/07/20 08:21 Dose: 2 puff Documented by: Albuterol/Ipratropium (Ipratropium-Albuterol 3 Ml Neb) 3 ml INHALATION Q6H.RESPIRATORY PRN PRN Reason: SHORTNESS OF BREATH Aspirin (Aspirin 81 Mg Ec Tablet) 81 mg PO DAILY [facility] Last Admin: 05/12/20 08:04 Dose: 81 mg Documented by: Atorvastatin Calcium (Atorvastatin 40 Mg Tablet) 40 mg PO BEDTIME [facility] Last Admin: 05/11/20 20:52 Dose: 40 mg Documented by: Bisacodyl (Bisacodyl 5 Mg Tablet) 10 mg PO DAILY PRN PRN Reason: CONSTIPATION Last Admin: 05/06/20 08:03 Dose: 10 mg Documented by: Carvedilol (Carvedilol 3.125 Mg Tablet) 3.125 mg PO BID [facility] Last Admin: 05/12/20 08:05 Dose: 3.125 mg Documented by: Dextrose (Dextrose 50% Syringe 50 Ml) 25 ml IVP ONCE PRN; Protocol PRN Reason: hypoglycemia protocol Dextrose (Dextrose 50% Syringe 50 Ml) 50 ml IVP PRN PRN; Protocol PRN Reason: hypoglycemia protocol Enoxaparin Sodium (Enoxaparin 40 Mg/0.4 Ml Syringe) 40 mg SUBCUT Q24H [facility] Last Admin: 05/12/20 09:29 Dose: Not Given Documented by: Famotidine (Famotidine 20 Mg Tablet) 20 mg PO 0900,2100 [facility] Last Admin: 05/12/20 08:04 Dose: 20 mg Documented by: Furosemide (Furosemide 20 Mg Tablet) 20 mg PO DAILY@0800 [facility] Last Admin: 05/12/20 08:05 Dose: 20 mg Documented by: Glucagon (Glucagon 1 Mg/Ml Inj 1 Ml) 1 mg IM ONCE PRN; Protocol PRN Reason: Adult Acute Hypoglycemia Prot. Dextrose (D5w) 500 mls @ 100 mls/hr IV ONCE PRN; Protocol PRN Reason: Adult Acute Hypoglycemia Prot Sodium Chloride (Sodium Chloride 0.9%) 1,000 mls @ 50 mls/hr IV .Q20H ONE Stop: 05/13/20 04:59 Last Admin: 05/12/20 08:10 Dose: 50 mls/hr Documented by: Insulin Aspart (Insulin Aspart 100 Unit/1 Ml) 0 unit SUBCUT BEDTIME [facility]; Protocol Last Admin: 05/11/20 20:51 Dose: 2 unit Documented by: Insulin Aspart (Insulin Aspart 100 Unit/1 Ml) 0 unit SUBCUT TIDWM [facility]; Protocol Last Admin: 05/12/20 12:35 Dose: 4 unit Documented by: Insulin Glargine (Insulin Glargine 100 Units/1 Ml) 25 unit SUBCUT BEDTIME [facility] Levothyroxine Sodium (Levothyroxine 200 Mcg Tablet) 200 mcg PO QAM [facility] Last Admin: 05/12/20 06:29 Dose: 200 mcg Documented by: Losartan Potassium (Losartan 50 Mg Tablet) 25 mg PO DAILY [facility] Last Admin: 05/12/20 08:05 Dose: 25 mg Documented by: Magnesium Hydroxide (Magnesium Hydroxide 30 Ml Udc) 15 ml PO BEDTIME PRN PRN Reason: CONSTIPATION Nicotine (Nicotine 14 Mg Patch) 1 patch TRANSDERMA DAILY PRN PRN Reason: nicotine withdrawal Ondansetron HCl (Ondansetron 2 Mg/Ml Sdv 2 Ml) 4 mg IVP Q6H PRN PRN Reason: NAUSEA AND VOMITING Last Admin: 05/11/20 12:52 Dose: 4 mg Documented by: Ondansetron HCl (Ondansetron 2 Mg/Ml Sdv 2 Ml) 4 mg IVP Q2M PRN PRN Reason: NAUSEA Polyethylene Glycol (Polyethylene Glycol 3350 Pkt 17 Gm) 17 gm PO BID [facility] Last Admin: 05/12/20 08:04 Dose: 17 gm Documented by: Sodium Phosphate (Fleet Enema 133 Ml Enema) 133 ml [place] DAILY PRN PRN Reason: CONSTIPATION Spironolactone (Spironolactone 25 Mg Tablet) 25 mg PO DAILY [facility] Last Admin: 05/12/20 08:05 Dose: 25 mg Documented by: Vitals/I&O/Wt Last Vital Signs Temp 98.2 F 05/12/20 12:00 Pulse 58 L 05/12/20 12:00 Resp 18 05/12/20 12:00 BP 121/73 05/12/20 12:00 Pulse Ox 97 05/12/20 12:00 05/11/20 05/12/20 05/12/20 22:59 06:59 14:59 Intake Total 480 / 840 980 / 1820 480 / 480 Balance 480 / 840 980 / 1820 480 / 480 Physical Exam Narrative: EXAM NARRATIVE: GENERAL: The patient is alert and oriented times three. Not in any acute distress. Moderately obese HEENT: No significant pallor, icterus or lymphadenopathy. Pupils are symmetrical in size. There are no mucous membrane lesions. NECK: Trachea appears to be central. No masses noted. No JVD or thyromegaly appreciated. No carotid bruit. RESPIRATORY: Chest is symmetrical. No intercostals muscle retraction or any accessory muscle activation. There is no chest wall tenderness. Breath sounds are heard bilaterally. No rales or rhonchi heard. No evidence of any consolidation. Density of the breath sounds are diminished in the bases. BREASTS: Deferred. HEART: The PMI could not be palpated. No palpable precordial events. S1 and S2 are normal. No S3 or S4 heard. No pericardial rub or any click heard. ABDOMEN: No vessel pulsations or distention. No tenderness. No organomegaly appreciated. No abdominal bruit. Bowel sounds are normally heard. : Deferred. EXTREMITIES: Features of chronic venous stasis in the left lower extremity. The dorsalis pedis and posterior pulses are palpable but somewhat weak bilaterally. MUSCULOSKELETAL: No acute joint deformities or swelling SKIN: Hyperpigmentation with this healed skin superficial skin ulcers in the left lower extremity NEUROPSYCHIATRIC: The patient is alert and oriented x3. Appears to be in a good mood. The higher functions are grossly within normal limits. No tremors or rigidity noted. Data : 05/12/20 05:28 05/12/20 05:28 A&P Assessment and plan (1) Atypical chest pain: I discussed the the findings in the echocardiogram and the Miochol perfusion imaging with the patient. In view of the patient's chest pain, heart failure, severe LV dysfunction and the abnormal myocardial perfusion imaging, in order to further evaluate his coronary status as well as the hemodynamics, a left and right heart catheterization would be appropriate. This was discussed the patient detail which he understood well and consented to proceed. The risk of bleeding, hematoma, vascular injury, myocardial infarction, CVA, renal failure and other concomitant complications were explained in detail. We will go ahead and schedule the cardiac catheterization this afternoon. Based on the results, further recommendations will be made. Status: Acute (2) Acute on chronic diastolic (congestive) heart failure: May continue on the current medications. Patient is tolerating the statin and the spironolactone so far well. Status: Acute (3) MARTITA (obstructive sleep apnea): Continue the current management. 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 Advised to continue on the current medications. Status: Chronic (6) Hyperlipidemia: Patient may continue the Lipitor. Status: Chronic Qualifiers: Hyperlipidemia type: unspecified Qualified Code(s): E78.5 - Hyperlipidemia, unspecified (7) Hypothyroidism: Clinically appears to be euthyroid. May continue the current medications. Status: Chronic Qualifiers: Hypothyroidism type: acquired Qualified Code(s): E03.9 - Hypothyroidism, unspecified Additional A&P Information Other problems are as outlined before Recurrent pancreatitis Chronic abdominal pain based on the patient's clinical progress and the results of the above, further management decisions will be made. Attestations Medical Necessity Statement*: Patient requires continued hospital stay for close monitoring and further management Coding Level of Care Code Acute Production Generalist for Chg Fwd Diagnoses Atypical chest pain R07.89 Acute on chronic diastolic (congestive) heart failure I50.33 MARTITA (obstructive sleep apnea) G47.33 Diabetes mellitus E11.628; Z79.4 Diabetes mellitus type: type 2 Diabetes mellitus snf insulin use: with watermelon harvesting supervisor use Diabetes mellitus complication status: with skin complications Diabetes mellitus complication detail: with other skin complication Essential hypertension I10 Hyperlipidemia E78.5 Hyperlipidemia type: unspecified Hypothyroidism E03.9 Hypothyroidism type: acquired
--- NOTE | 2020-05-12 14:46 | W.PM.OPSUD ---
Surgery/Procedure H&P Update DATE OF PROCEDURE: May 12, 2020 DATE H&P PERFORMED: 05/10/20 H&P UPDATE INFORMATION: I have reviewed H&P completed within last 30 days, I have examined patient prior to procedure and No changes to prior documentation PREOP DIAGNOSIS: Cardiomyopathy and abnormal myocardial perfusion imaging PATIENT REASSESSED PRIOR TO SEDATION, WITH NO CHANGE NOTED: Yes PHYSICAL EXAM: alert, clear to auscultation bilaterally and regular rate & rhythm AIRWAY EVAL/ANESTHESIA PLAN: normal airway, see other exam findings, ASA III, Monitored Anesthesia, Local Anesthesia, Risks, benefits & alternatives of sedation and/or procedure discussed and Patient agrees to continue as planned
--- NOTE | 2020-05-12 15:00 | XACV_ITS ---
Exam Room: [facility] Ht: 175 cm Wt: 116 kg BSA: 2.43 m2 Gender: Male : 1960 Any Known Allergies: Other Exam Priority: Routine Procedure(s): Procedure Description: Diagnostic procedure Procedure Description: Left Heart Catheterization Procedure Description: Left ventriculography Procedure Description: Coronary Angiography Diagnostic Cath Status: Elective Diagnostic Findings * No significant disease noted in the Left Main, LAD, Circumflex, or RCA coronary arteries. * Coronary angiography shows right dominance. * Left main is a medium caliber vessel with a minimal intimal irregularities. No significant stenotic lesions. * The left circumflex artery is a medium caliber vessel which was found to have mild diffuse intimal irregularities with no significant stenotic lesions. * The intermedius artery is a high obtuse marginal branch and is a medium caliber. Mild diffuse intimal irregularities are noted in the vessel. No significant stenotic lesions. * The left anterior descending artery is a medium caliber vessel which appears to wrap around the LV apex. The artery appears to be very tortuous proximally. 30 to 40% diffuse irregular narrowing was noted in the mid and distal segment of the artery. No significant stenotic lesions. It gives of multiple slender diagonal branches with no significant stenotic lesions. * The right coronary artery is a medium caliber dominant vessel which also was found to have 30 to 40% diffuse irregular narrowing in the mid to distal segment. No other significant lesions were noted. Conclusions 1. Mild diffuse atherosclerotic disease in all 3 coronary arteries. Dilated left ventricle with an ejection fraction of around 15%. LVEDP of 24 mmHg. Recommendations * Continue current medical management and risk factor modification. Diagnostic RX Recommendation: medical therapy and/or counseling LV EDP: 24 mmHg Ventriculography Ejection Fraction: 15.0 % Left Ventriculography Findings: * The LV gram was performed in the FARIA projection. The LV cavity appears to be dilated. There is severe diffuse hypokinesia of the left ventricle. The study was a suboptimal quality because of the poor visualization of the ventricle. Pressures Phase:Rest AO : 84 / 40 ( 60 ) @ 10:11:00 AM 95 / 56 ( 68 ) @ 10:13:00 AM 90 / 56 ( 69 ) @ 10:14:00 AM 108 / 57 ( 77 ) @ 10:27:00 AM 111 / 59 ( 79 ) @ 10:27:00 AM LV : 109 / 10 / @ 10:26:00 AM 109 / 12 / @ 10:27:00 AM 108 / 11 / @ 10:27:00 AM Valves Phase:DefaultPhase AV : 0.0 @ 3:43:32 PM 0.0 @ 3:43:32 PM AV Mean Gradient: 0.0 @ 3:43:32 PM Clinical Evaluation EBL: 5mL-10mL Procedural Details Pre-Procedure Time Out. Identified patient by full name and date of as verbalized by the patient/guarantor. Does the consent match the physician's order: Yes. Accurate & Complete Informed Consent: Yes. Inpatient/Outpatient History & Physical on Chart: Yes. If H&P is completed, is and addenduem needed: No; If yes, is the addendum complete: N/A. Visualize and Verify Site with Patient/Guarantor: N/A. Relevant Radiology Images available: N/A. Pre-op teaching completed and patient verbalized understanding. The risks, benefits, and alternatives of sedation and/or procedure were discussed by physician. The patient agrees to continue. Procedure started. [facility] Clinical Fraility Score: 4: Vulnerable. Director Community Health Nursing Indications: Cardiomyopathy. Chest Pain Symptom Assessment: Atypical Angina. Cardiovascular Instability: No, if yes, Persistant Ischemic Symptoms. Correct patient, site and procedure confirmed by cath team. PERRLA. Strong, equal hand game and fish protector bilaterally. Lungs clear x 5 lobes. IV Site on Arrival: 18 gauge in the left wrist. Pre Procedural Pulses: bilateral radial was 2+. Oxygen started at 2liters/min via nasal canula. right groin was prepped with chloroprep then draped in the usual sterile fashion. right radial was prepped with chloroprep then draped in the usual sterile fashion. Physician notified. Baseline sample Acquired. HR: 58 BPM. Equipment: 6F - Radial. Cardiac Cath Pack. ACIST Manifold Kit Model BT 2000. Heparinized Saline (2 units/mL), 1000 mL bag. IV Fluids: 0.9% NaCl at KVO. 800 mL infused prior to woods laborer. Physician arrived. Physician scrubbed in. Immediate Pre-Procedure Time Out. A 20 gauge IV was started in the right anticubital using aseptic technique. Correct Patient: Yes; Correct Procedure: Yes; Correct Site: Yes; Correct Patient Position: Yes; Correct Supplies: Yes; Dried Flammable Prep: Yes; Blood Products Available: N/A;. Wire inserted through IV catheter in right brachial vein. Wire out. Lidocaine 1% infiltrated to the right radial. Arterial access obtained. A 5 barbadian Jean Claude catheter in over wire. Multiple views taken of left coronary artery. Catheter redirected to the RCA. Catheter removed over the exchange wire. A 5 barbadian JR4 catheter in over wire. Multiple views taken of right coronary artery. Catheter removed over the exchange wire. EDP Sample taken: LV 109/10,24; HR: 72 BPM; SpO2: 97%. LV gram performed in FARIA @ 12 mL/second for a total of 36 mL. EDP Sample taken: LV 109/12,25; HR: 74 BPM; SpO2: 95%. Pullback taken: LV 108/11,25; AO 108/57(77); Mean: 0mmHg, Peak to Peak: 0mmHg, SEP: 18sec/min; HR: 76 BPM; SpO2: 97%. Catheter removed over the exchange wire. Physician scrubbed out. A TR Band was successful obtaining hemostatsis at the Right Radial artery insertion site. TR band placed. Hemostasis obtained. Post Procedure: Pulses reassessed and unchanged. PERRLA. Strong, equal hand game and fish protector bilaterally. No VTE prophylaxis required. Medication's Wasted: Lidocaine 1% = 18 mL. Medication's Wasted: Heparin = 1000 units. Medication's Wasted: Nitro = 49.8 mg. Medication's Wasted: Other = versed 1 mg. Medication's Wasted: Other = fentanyl 50 mcg. Total IV fluids: 288 mL. Contrast type used: Omnipaque 300 mgI/mL, 500 mL bottle. Post-op diagnosis: non ischemic cardiomyopathy. Complications: none. Estimated blood loss: 5mL-10mL. Procedure completed. Patient transferred by wheelchair to 1st floor. Access Site Site: Right Radial artery Sheath Size: 6 Fr Hemostasis Method: TR Band Hemostasis Success: Successful Procedure Medications Start: 2:53 PM Stop: 2:53 PM Medication: Fentanyl Amount: 50 mcg Route: I.V. Start: 3:07 PM Stop: 3:07 PM Medication: Verapamil Amount: 5 mg Route: I.A. Start: 3:08 PM Stop: 3:08 PM Medication: Nitrogylcerin Amount: 100 mcg Route: I.A. Start: 3:08 PM Stop: 3:08 PM Medication: 0.9% Saline Amount: 250 ml Route: I.V. bolus Start: 3:09 PM Stop: 3:09 PM Medication: Versed Amount: 1 mg Route: I.V. Start: 3:10 PM Stop: 3:10 PM Medication: Heparin Amount: 5000 units Route: I.V. Start: 3:22 PM Stop: 3:22 PM Medication: Versed Amount: 1 mg Route: I.V. I, the attending physician, have reviewed and verified all procedure medications. Yes, all medications given per verbal order History/Risk Factors Hypertension: Yes Dyslipidemia: Yes Peripheral Arterial Disease (PAD): No Myocardial Infarction (PA): No Obesity: Yes Renal Disease: No Tobacco Use: Current/Recent(w/in 1 year) Prior Interventions PCI: No CABG: No Valve Surgery: No Report Signatures Finalized by Dr Kam Ge MD [facility] on 05/12/2020 06:06 PM
[2020-05-12 16:47] LABS: Glucose Point of Care 122 mg/dL (70-110)
--- NOTE | 2020-05-12 16:58 | P.PN_ITS ---
Subjective Subjective: Interval history: No significant overnight events. Denies chest pain or shortness of breath. Abdominal pain is about the same. No nausea or vomiting. No diarrhea. No fever or chills Medications: Reviewed: Yes Medication Review Details: Generic Name Dose Route Start Last Admin Trade Name Freq PRN Reason Stop Dose Admin Hydrocodone Bitart /Acetaminophen 1 tab 05/10/20 12:06 05/12/20 02:48 Hydrocodone-Acet aminophen 5-325 Mg Tablet PO 1 tab Q4H PRN Administration MODERATE PAIN Albuterol Sulfate 2 puff 05/04/20 21:14 05/07/20 08:21 Albuterol 8 Gm M di INHALATION 2 puff Q4H.RESPIRATORY P RN Administration SOB if refuses ne b Aspirin 81 mg 05/10/20 10:00 05/12/20 08:04 Aspirin 81 Mg Ec Tablet PO 81 mg DAILY HINA Administration Atorvastatin Calci um 40 mg 05/10/20 21:00 05/11/20 20:52 Atorvastatin 40 Mg Tablet PO 40 mg BEDTIME HINA Administration Bisacodyl 10 mg 05/02/20 07:33 05/06/20 08:03 Bisacodyl 5 Mg T ablet PO 10 mg DAILY PRN Administration CONSTIPATION Carvedilol 3.125 mg 05/10/20 18:00 05/12/20 08:05 Carvedilol 3.125 Mg Tablet PO 3.125 mg BID HINA Administration Enoxaparin Sodium 40 mg 05/02/20 07:30 05/12/20 09:29 Enoxaparin 40 Mg /0.4 Ml Syringe SUBCUT Not Given Q24H HINA Famotidine 20 mg 05/04/20 21:00 05/12/20 08:04 Famotidine 20 Mg Tablet PO 20 mg 0900,2100 HINA Administration Furosemide 20 mg 05/12/20 08:00 05/12/20 08:05 Furosemide 20 Mg Tablet PO 20 mg DAILY@0800 HINA Administration Sodium Chloride 1,000 mls @ 50 ml s/hr 05/12/20 09:00 05/12/20 08:10 Sodium Chloride 0.9% IV 05/13/20 04:59 50 mls/hr .Q20H ONE Administration Insulin Aspart 0 unit 05/02/20 21:00 05/11/20 20:51 Insulin Aspart 1 00 Unit/1 Ml SUBCUT 2 unit BEDTIME HINA Administration Protocol Insulin Aspart 0 unit 05/02/20 08:00 05/12/20 12:35 Insulin Aspart 1 00 Unit/1 Ml SUBCUT 4 unit TIDWM HINA Administration Protocol Levothyroxine Sodi um 200 mcg 05/03/20 06:00 05/12/20 06:29 Levothyroxine 20 0 Mcg Tablet PO 200 mcg QAM HINA Administration Losartan Potassium 25 mg 05/12/20 09:00 05/12/20 08:05 Losartan 50 Mg T ablet PO 25 mg DAILY HINA Administration Ondansetron HCl 4 mg 05/02/20 04:51 05/11/20 12:52 Ondansetron 2 Mg /Ml Sdv 2 Ml IVP 4 mg Q6H PRN Administration NAUSEA AND VOMITI NG Polyethylene Glyco l 17 gm 05/05/20 18:00 05/12/20 08:04 Polyethylene Gly col 3350 Pkt 17 Gm PO 17 gm BID HINA Administration Spironolactone 25 mg 05/12/20 09:00 05/12/20 08:05 Spironolactone 2 5 Mg Tablet PO 25 mg DAILY HINA Administration Vitals/I&O/Wt Last Vital Signs Temp 98.2 F 05/12/20 12:00 Pulse 58 L 05/12/20 12:00 Resp 18 05/12/20 12:00 BP 121/73 05/12/20 12:00 Pulse Ox 97 05/12/20 12:00 05/12/20 05/12/20 05/12/20 06:59 14:59 22:59 Intake Total 980 / 1820 480 / 480 Balance 980 / 1820 480 / 480 Physical Exam Narrative: EXAM NARRATIVE: Awake alert oriented x4. No acute distress. Mood and affect are appropriate. Responses are adequate. Skin is warm and dry. Moist mucous membranes. Eyes PERRLA, extraocular muscles are intact. Normal speech. Neck is supple. No JVD Lungs clear. No wheezes or crackles Heart S1, S2, regular Abdomen is obese, soft, nontender. No rebound or guarding. Bowel sounds are present. Mild bilateral pedal edema. No cyanosis or calf tenderness bilaterally Data : 05/12/20 05:28 05/12/20 05:28 A&P Assessment and plan (1) Constipation: Patient is complaining of severe constipation and persistent abdominal pain.He think that all the he has some other G/I Cause of abdominal pain and constipation. Lactulose as well as other laxatives were given. Patient was told that if his symptoms doesn't improve then he we can refer him to a GI Specialist.He understands. Repeat C.T abdomen and Pelvis ordered. Status: Acute (2) Acute pancreatitis: Ac Pancreatitis ( Resolved ) Continue IV fluids Carbohydrate consistent diet as tolerated Pain control Status: Acute Qualifiers: Acute pancreatitis complication: no infection or necrosis Pancreatitis type: alcohol induced Qualified Code(s): K85.20 - Alcohol induced acute pancreatitis without necrosis or infection (3) Diabetes mellitus: Type II, insulin requiring Status: Chronic Qualifiers: Diabetes mellitus type: type 2 Diabetes mellitus senior living insulin use: with senior living use Diabetes mellitus complication status: with skin co mplications Diabetes mellitus complication detail: with other skin complication Qualified Code(s): E11.628 - Type 2 diabetes mellitus with other skin complications; Z79.4 - detention (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 of insulin (4) Left bundle branch block: No prior EKGs for comparison Status: Acute (5) Essential hypertension: Appears well controlled currently Status: Chronic (6) COPD (chronic obstructive pulmonary disease): Not presently acute Status: Chronic Qualifiers: COPD type: emphysema Emphysema type: unspecified Qualified Code(s): J43.9 - Emphysema, unspecified (7) MARTITA (obstructive sleep apnea): Chronically on CPAP Status: Chronic (8) Hyperlipidemia: Chronically on statin Status: Chronic Qualifiers: Hyperlipidemia type: unspecified Qualified Code(s): E78.5 - Hyperlipidemia, unspecified (9) Hypothyroidism: Status: Chronic Qualifiers: Hypothyroidism type: acquired Qualified Code(s): E03.9 - Hypothyroidism, unspecified (10) Left leg swelling: Patient reports chronic in nature without recent change, has associated dermatitis Status: Chronic (11) Nicotine dependence, cigarettes, with other nicotine-induced disorders: Has significantly cut down on amount of smoking Status: Chronic (12) On home oxygen therapy: 3 L by nasal cannula continuous Status: Chronic Additional A&P Information Sliding scale insulin currently Continue albuterol Continue oral levothyroxine CPAP at night with nasal mask Continue home oxygen Pepcid for GI prophylaxis Lovenox for DVT prophylaxis Stool softeners Nicotine patch if needed [place] Abdominal pain. Most likely secondary to acute pancreatitis which was confirmed by CT. ?Chronic pancreatitis. Also, constipation was suspected to be one of the possible explanations. However the pain did not resolve after he had a bowel movement. The pain probably is not related to ventral hernia as well. There is no evidence of complications related to ventral hernia. On examination he has large ventral hernia without incarceration. Appreciate input from Dr. Groves. Probably the patient will have EGD at some point to rule out gastritis or peptic ulcer disease. We will continue pain management. Mild acute pancreatitis. Currently tolerating diet well. We will continue current management. Possible cirrhosis. CT does not show ascites. He has history of excessive alcohol intake. However currently his alcohol intake is very occasional. Alcohol cessation counseling is provided by me. Chest pain. Left bundle branch block. Mildly elevated troponin. Continue aspirin, statin and beta-bettie. Echo revealed decreased EF. Abnormal stress test. Official report is still pending. The patient will undergo cardiac catheterization later today. We will wait for additional recommendations from Dr. Ge. I appreciate Dr. Plasencia input. Constipation. Resolved. Diabetes. Continue current management. Hypertension. Currently well controlled. Continue current management. Obstructive sleep apnea. CPAP as needed. DVT prophylaxis. Lovenox. The plan of care was discussed with the patient. He verbalized understanding and agreement. Discussed with Dr. Groves and Dr. Ge. Attestations Medical Necessity Statement*: Continuing cardiac evaluations. 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 [facility] Diagnoses Constipation K59.00 Acute pancreatitis K85.20 Acute pancreatitis complication: no infection or necrosis Pancreatitis type: alcohol induced Diabetes mellitus E11.628; Z79.4 Diabetes mellitus type: type 2 Diabetes mellitus intermediate frame tender insulin use: with senior living use Diabetes mellitus complication status: with skin complications Diabetes mellitus complication detail: with other skin complication Left bundle branch block I44.7 Essential hypertension I10 COPD (chronic obstructive pulmonary disease) J43.9 COPD type: emphysema Emphysema type: unspecified MARTITA (obstructive sleep apnea) G47.33 Hyperlipidemia E78.5 Hyperlipidemia type: unspecified Hypothyroidism E03.9 Hypothyroidism type: acquired Left leg swelling M79.89 Nicotine dependence, cigarettes, with other nicotine-induced disorders F17.218 On home oxygen therapy Z99.81
--- NOTE | 2020-05-12 19:40 | PC.NURSE ---
1600 Right wrist cath site assessed, no bleeding, no hematoma, pulse intact 1615 No change to cath site 1630 No change to cath site 1645 No change to cath site 1715 No change to cath site 1730 2 ml air removed from TR band, no change to site 1745 20 ml air removed from TR band, no change to site 1800 2 ml air removed from TR band, no change to cath site 1845 2 ml air removed from TR band, pulse intact, no bleeding, no hematoma
--- NOTE | 2020-05-12 20:28 | PC.NURSE ---
AO x4, answers questions and follows commands, TR band site to R wrist clean dry and intact air removed from band periodically, no C/O at this time, sitting up in bed call light within reach
[2020-05-12 21:49] LABS: Glucose Point of Care 193 mg/dL (70-110)
[2020-05-12] MEDS: atorvastatin 40 mg Tablet PO (22:02)
[2020-05-12] MEDS: insulin glargine 100 units/1 mL 25 UNIT SUBCUT (22:09)
--- NOTE | 2020-05-12 22:58 | PC.NURSE ---
Patient transferred via w/c to [facility] floor room 275 at 2250.
[2020-05-13] VITALS (13 sets, daily range): BP systolic 118–146; BP diastolic 65–77; PULSE 54–93; RESP 16–19; TEMP 36.3–36.8; O2SAT 62–99
[2020-05-13] MEDS: HYDROcodone-acetaminophen 5-325 mg Tablet 1 TAB PO (04:00)
[2020-05-13 06:26] LABS: Glucose Point of Care 141 mg/dL (70-110)
[2020-05-13 06:40] LABS: Basophils % 0.5 %; Eosinophils # 0.2 10^3/uL (0.0-0.8); Eosinophils % 4.2 %; Hematocrit 43.7 % (42.0-52.0); Hemoglobin 14.2 g/dL (11.7-16.6); Lymphocytes # 1.6 10^3/uL (0.8-4.8); Lymphocytes % 27.4 %; Mean Corpuscular HGB Conc 32.5 g/dL (30.0-36.0); Mean Corpuscular Hemoglobin 32.3 pg (28.0-34.0); Mean Corpuscular Volume 99.5 fL (80-94); Mean Platelet Volume 10.7 fL (7.4-10.4); Monocytes # 0.6 10^3/uL (0.2-0.9); Monocytes % 10.3 %; Neutrophils # 3.28 10^3/uL (1.8-7.7); Neutrophils % 57.3 %; Nucleated Red Blood Cells % 0 %; Platelet Count 178 10^3/cmm (130-400); Red Blood Count 4.39 10^6/uL (4.1-5.3); Red Cell Distribution Width 12.6 % (12.1-15.1); White Blood Count 5.7 10^3/uL (4.0-10.0)
[2020-05-13] MEDS: levothyroxine 200 mcg Tablet PO (06:50)
[2020-05-13 07:19] LABS: Alanine Aminotransferase 14 U/L (0-41); Albumin Level 3.7 g/dL (3.5-5.2); Alkaline Phosphatase 70 IU/L (40-130); Anion Gap 12.6 (5-19); Aspartate Amino Transferase 16 U/L (0-40); Blood Urea Nitrogen 9 mg/dL (6-20); Calcium 8.9 mg/dL (8.5-10.5); Carbon Dioxide 32 mmol/L (22-29); Chloride 95 mmol/L (98-107); Globulin 3.7 g/dL (1.3-4.6); Glomerular Filtration Rate 138.4 mL/min (90-130); Glucose 114 mg/dL (65-115); Magnesium 1.9 mg/dL (1.7-2.3); Osmolality Calculated 280 mOsm/kg (285-295); Potassium 4.6 mmol/L (3.5-5.1); Sodium 135 mmol/L (136-145); Total Bilirubin 0.4 mg/dL (0.15-1.2); Total Protein 7.4 g/dL (6.6-8.7)
[2020-05-13] MEDS: enoxaparin 40 mg/0.4 mL Syringe SUBCUT (07:54)
[2020-05-13] MEDS: FUROsemide 20 mg Tablet PO (07:55)
[2020-05-13] MEDS: carvedilol 3.125 mg Tablet PO ×2 (07:57→17:43)
[2020-05-13] MEDS: losartan 50 mg Tablet 25 MG PO (07:57)
[2020-05-13] MEDS: spironolactone 25 mg Tablet PO (07:57)
[2020-05-13] MEDS: aspirin 81 mg EC Tablet PO (07:58)
[2020-05-13] MEDS: famotidine 20 mg Tablet PO ×2 (08:03→20:04)
--- NOTE | 2020-05-13 10:27 | PC.SOCIAL ---
IMM Update Pg. 2 of IMM updated and reviewed with patient who verbalized understanding. Copy provided.
--- NOTE | 2020-05-13 11:11 | PC.NURSE ---
Returned at call to Ina Villa at [phone] with [employer] left a message .
[2020-05-13 11:45] LABS: Glucose Point of Care 202 mg/dL (70-110)
--- NOTE | 2020-05-13 12:59 | PM.PN ---
Subjective Subjective: Interval history: Patient is doing well. Denies any complaints of chest pain or shortness of breath. He underwent coronary angiogram yesterday which showed a nonischemic cardiomyopathy. He is awaiting placement of LifeVest. Vitals/I&O/Wt Last Vital Signs Temp 98.3 F 05/13/20 11:29 Pulse 59 L 05/13/20 11:29 Resp 18 05/13/20 11:29 BP 122/71 05/13/20 11:29 Pulse Ox 93 05/13/20 11:29 05/12/20 05/13/20 05/13/20 22:59 06:59 14:59 Intake Total 500 / 980 400 / 1380 780 / 780 Output Total 1750 / 1750 Balance -1250 / -770 400 / -370 780 / 780 Physical Exam Narrative: EXAM NARRATIVE: Awake alert oriented x4. No acute distress. Mood and affect are appropriate. Responses are adequate. Skin is warm and dry. Moist mucous membranes. Eyes PERRLA, extraocular muscles are intact. Normal speech. Neck is supple. No JVD Lungs clear. No wheezes or crackles Heart S1, S2, regular Abdomen is obese, soft, nontender. No rebound or guarding. Bowel sounds are present. Mild bilateral pedal edema. No cyanosis or calf tenderness bilaterally Data : 05/13/20 06:14 05/13/20 06:14 A&P Assessment and plan (1) Atypical chest pain: Patient had severe LV dysfunction and was found to have abnormal stress test. He underwent coronary angiogram on Friday. It did not reveal any significant stenosis. He has nonischemic cardiomyopathy. Symptoms are stable. From cardiac standpoint patient is stable to be discharged. Status: Acute (2) Acute on chronic diastolic (congestive) heart failure: Nonischemic cardiomyopathy. Patient is tolerating the statin and the spironolactone so far well. Patient to be started on Entresto after stopping losartan for 36 hours. Patient will need LifeVest. Cardiac function to be reassessed as outpatient in 3 months for evaluation of permanent defibrillator placement. Status: Acute (3) MARTITA (obstructive sleep apnea): Continue the current management. 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 Advised to continue on the current medications. Status: Chronic (6) Hyperlipidemia: Patient may continue the Lipitor. Status: Chronic Qualifiers: Hyperlipidemia type: unspecified Qualified Code(s): E78.5 - Hyperlipidemia, unspecified (7) Hypothyroidism: Clinically appears to be euthyroid. May continue the current medications. Status: Chronic Qualifiers: Hypothyroidism type: acquired Qualified Code(s): E03.9 - Hypothyroidism, unspecified Additional A&P Information Other problems are as outlined before Recurrent pancreatitis Chronic abdominal pain based on the patient's clinical progress and the results of the above, further management decisions will be made. Attestations Medical Necessity Statement*: Care expected to cross 2 midnights. 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
[2020-05-13 17:04] LABS: Glucose Point of Care 123 mg/dL (70-110)
--- NOTE | 2020-05-13 17:04 | P.PN_ITS ---
Subjective Subjective: Interval history: The patient is doing okay. Denies any active complaints. Denies chest pain. Abdominal pain has almost resolved. No shortness of breath. No fever or chills. No nausea or vomiting. Medications: Reviewed: Yes Medication Review Details: Generic Name Dose Route Start Last Admin Trade Name Getachewq PRN Reason Stop Dose Admin Hydrocodone Bitart /Acetaminophen 1 tab 05/10/20 12:06 05/13/20 04:00 Hydrocodone-Acet aminophen 5-325 Mg Tablet PO 1 tab Q4H PRN Administration MODERATE PAIN Albuterol Sulfate 2 puff 05/04/20 21:14 05/07/20 08:21 Albuterol 8 Gm M di INHALATION 2 puff Q4H.RESPIRATORY P RN Administration SOB if refuses ne b Aspirin 81 mg 05/10/20 10:00 05/13/20 07:58 Aspirin 81 Mg Ec Tablet PO 81 mg DAILY HINA Administration Atorvastatin Calci um 40 mg 05/10/20 21:00 05/12/20 22:02 Atorvastatin 40 Mg Tablet PO 40 mg BEDTIME HINA Administration Bisacodyl 10 mg 05/02/20 07:33 05/06/20 08:03 Bisacodyl 5 Mg T ablet PO 10 mg DAILY PRN Administration CONSTIPATION Carvedilol 3.125 mg 05/10/20 18:00 05/13/20 07:57 Carvedilol 3.125 Mg Tablet PO 3.125 mg BID HINA Administration Enoxaparin Sodium 40 mg 05/02/20 07:30 05/13/20 07:54 Enoxaparin 40 Mg /0.4 Ml Syringe SUBCUT 40 mg Q24H HINA Administration Famotidine 20 mg 05/04/20 21:00 05/13/20 08:03 Famotidine 20 Mg Tablet PO 20 mg 0900,2100 HINA Administration Furosemide 20 mg 05/12/20 08:00 05/13/20 07:55 Furosemide 20 Mg Tablet PO 20 mg DAILY@0800 HINA Administration Insulin Aspart 0 unit 05/02/20 21:00 05/12/20 22:02 Insulin Aspart 1 00 Unit/1 Ml SUBCUT 2 unit BEDTIME HINA Administration Protocol Insulin Aspart 0 unit 05/02/20 08:00 05/13/20 12:18 Insulin Aspart 1 00 Unit/1 Ml SUBCUT 4 unit TIDWM HINA Administration Protocol Insulin Glargine 25 unit 05/12/20 21:00 05/12/20 22:09 Insulin Glargine 100 Units/1 Ml SUBCUT 25 unit BEDTIME HINA Administration Losartan Potassium 25 mg 05/12/20 09:00 05/13/20 07:57 Losartan 50 Mg T ablet PO 25 mg DAILY HINA Administration Ondansetron HCl 4 mg 05/02/20 04:51 05/11/20 12:52 Ondansetron 2 Mg /Ml Sdv 2 Ml IVP 4 mg Q6H PRN Administration NAUSEA AND VOMITI NG Polyethylene Glyco l 17 gm 05/05/20 18:00 05/13/20 07:59 Polyethylene Gly col 3350 Pkt 17 Gm PO Not Given BID HINA Spironolactone 25 mg 05/12/20 09:00 05/13/20 07:57 Spironolactone 2 5 Mg Tablet PO 25 mg DAILY HINA Administration Vitals/I&O/Wt Last Vital Signs Temp 97.9 F 05/13/20 15:23 Pulse 59 L 05/13/20 15:23 Resp 18 05/13/20 15:23 BP 142/77 05/13/20 15:23 Pulse Ox 93 05/13/20 15:23 05/13/20 05/13/20 05/13/20 06:59 14:59 22:59 Intake Total 1400 / 2380 780 / 780 Balance 1400 / 630 780 / 780 Physical Exam Narrative: EXAM NARRATIVE: Awake alert oriented x4. No acute distress. Mood and affect are appropriate. Responses are adequate. Skin is warm and dry. Moist mucous membranes. Eyes PERRLA, extraocular muscles are intact. Normal speech. Neck is supple. No JVD Lungs clear. No wheezes or crackles Heart S1, S2, regular Abdomen is obese, soft, nontender. No rebound or guarding. Bowel sounds are present. Mild bilateral pedal edema. No cyanosis or calf tenderness bilaterally Data : 05/13/20 06:14 05/13/20 06:14 A&P Assessment and plan (1) Constipation: Patient is complaining of severe constipation and persistent abdominal hortencia n.He think that all the he has some other G/I Cause of abdominal pain and constipation. Lactulose as well as other laxatives were given. Patient was told that if his symptoms doesn't improve then he we can refer him to a GI Specialist.He understands. Repeat C.T abdomen and Pelvis ordered. Status: Acute (2) Acute pancreatitis: Ac Pancreatitis ( Resolved ) Continue IV fluids Carbohydrate consistent diet as tolerated Pain control Status: Acute Qualifiers: Acute pancreatitis complication: no infection or necrosis Pancreatitis type: alcohol induced Qualified Code(s): K85.20 - Alcohol induced acute pancreatitis without necrosis or infection (3) Diabetes mellitus: Type II, insulin requiring Status: Chronic Qualifiers: Diabetes mellitus type: type 2 Diabetes mellitus detention insulin use: with remote computer terminal operator use Diabetes mellitus complication status: with skin complications Diabetes mellitus complication detail: with other skin complication Qualified Code(s): E11.628 - Type 2 diabetes mellitus with other skin complications; 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.4 - 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 (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 of insulin (4) Left bundle branch block: No prior EKGs for comparison Status: Acute (5) Essential hypertension: Appears well controlled currently Status: Chronic (6) COPD (chronic obstructive pulmonary disease): Not presently acute Status: Chronic Qualifiers: COPD type: emphysema Emphysema type: unspecified Qualified Code(s): J43.9 - Emphysema, unspecified (7) MARTITA (obstructive sleep apnea): Chronically on CPAP Status: Chronic (8) Hyperlipidemia: Chronically on statin Status: Chronic Qualifiers: Hyperlipidemia type: unspecified Qualified Code(s): E78.5 - Hyperlipidemia, unspecified (9) Hypothyroidism: Status: Chronic Qualifiers: Hypothyroidism type: acquired Qualified Code(s): E03.9 - Hypothyroidism, unspecified (10) Left leg swelling: Patient reports chronic in nature without recent change, has associated d ermatitis Status: Chronic (11) Nicotine dependence, cigarettes, with other nicotine-induced disorders: Has significantly cut down on amount of smoking Status: Chronic (12) On home oxygen therapy: 3 L by nasal cannula continuous Status: Chronic Additional A&P Information Sliding scale insulin currently Continue albuterol Continue oral levothyroxine CPAP at night with nasal mask Continue home oxygen Pepcid for GI prophylaxis Lovenox for DVT prophylaxis Stool softeners Nicotine patch if needed [place] Abdominal pain. Most likely secondary to acute pancreatitis which was confirmed by CT. ?Chronic pancreatitis. Also, constipation was suspected to be one of the possible explanations. However the pain did not resolve after he had a parrish wel movement. The pain probably is not related to ventral hernia as well. There is no evidence of complications related to ventral hernia. On examination he has large ventral hernia without incarceration. Appreciate input from Dr. Groves. Probably the patient will have EGD at some point as outpatient if the pain persists to rule out gastritis or peptic ulcer disease. We will continue pain management. Mild acute pancreatitis. Resolved. Currently tolerating diet well. We will continue current management. Possible cirrhosis. CT does not show ascites. He has history of excessive alcohol intake. However currently his alcohol intake is very occasional. Alcohol cessation counseling is provided by me. Chest pain. Left bundle branch block. Mildly elevated troponin. Continue aspirin, statin and beta-bettie. EF is 15%. Abnormal stress test. Cardiac catheterization revealed extensive small vessel Bob artery disease. Nonischemic cardiomyopathy is suspected. Discussed with Dr. Carrion. He recommends stopping Cozaar and initiating Entresto 36 to 48 hours later. LifeVest will be arranged today. Most likely patient will go home tomorrow. Close outpatient follow-up with collections agent. Hypothyroidism. TSH is very elevated. I discussed with the patient. He reports that he only takes his Synthroid once or twice a week. Counseling is provided. He verbalized understanding and agreement. I will not change the dose. His thyroid panel will need to be rechecked in couple of weeks and the dose be adjusted at that time. Constipation. Resolved. Diabetes. Continue current management. Hypertension. Currently well controlled. Continue current management. Obstructive sleep apnea. CPAP as needed. DVT prophylaxis. Lovenox. The plan of care was discussed with the patient. He verbalized understanding and agreement. Discussed with Dr. Carrion and Joo. Attestations Medical Necessity Statement*: Possible discharge tomorrow Coding Level of Care Code Acute Clinical Application Specialist for [facility] Diagnoses Constipation K59.00 Acute pancreatitis K85.20 Acute pancreatitis complication: no infection or necrosis Pancreatitis type: alcohol induced Diabetes mellitus E11.628; Z79.4 Diabetes mellitus type: type 2 Diabetes mellitus remote computer terminal operator insulin use: with remote computer terminal operator use Diabetes mellitus complication status: with skin complications Diabetes mellitus complication detail: with other skin complication Left bundle branch block I44.7 Essential hypertension I10 COPD (chronic obstructive pulmonary disease) J43.9 COPD type: emphysema Emphysema type: unspecified MARTITA (obstructive sleep apnea) G47.33 Hyperlipidemia E78.5 Hyperlipidemia type: unspecified Hypothyroidism E03.9 Hypothyroidism type: acquired Left leg swelling M79.89 Nicotine dependence, cigarettes, with other nicotine-induced disorders F17.218 On home oxygen therapy Z99.81
--- NOTE | 2020-05-13 19:07 | PC.NURSE ---
Report tp Elsa KAMARA at this time.
[2020-05-13] MEDS: atorvastatin 40 mg Tablet PO (20:04)
[2020-05-13] MEDS: insulin glargine 100 units/1 mL 25 UNIT SUBCUT (20:47)
[2020-05-13 20:56] LABS: Glucose Point of Care 236 mg/dL (70-110)
[2020-05-14] VITALS (11 sets, daily range): BP systolic 117–151; BP diastolic 54–80; PULSE 59–78; RESP 17–20; TEMP 36.2–37.2; O2SAT 92–98
[2020-05-14] MEDS: levothyroxine 200 mcg Tablet PO (05:27)
[2020-05-14] MEDS: lanolin oint 7 gm 1 APPLIC TOPICAL (05:53)
[2020-05-14 06:34] LABS: Glucose Point of Care 198 mg/dL (70-110)
[2020-05-14] MEDS: enoxaparin 40 mg/0.4 mL Syringe SUBCUT (07:50)
[2020-05-14] MEDS: FUROsemide 20 mg Tablet PO (07:51)
[2020-05-14] MEDS: aspirin 81 mg EC Tablet PO (08:00)
[2020-05-14] MEDS: spironolactone 25 mg Tablet PO (08:00)
[2020-05-14] MEDS: famotidine 20 mg Tablet PO ×2 (08:00→21:15)
[2020-05-14] MEDS: carvedilol 3.125 mg Tablet PO ×2 (08:00→18:25)
[2020-05-14 10:40] LABS: Glucose Point of Care 185 mg/dL (70-110)
--- NOTE | 2020-05-14 12:24 | PM.PN ---
Subjective Subjective: Interval history: Patient is doing well. He denies any chest pain or shortness of breath. Vitals/I&O/Wt Last Vital Signs Temp 98.1 F 05/14/20 11:28 Pulse 70 05/14/20 11:28 Resp 18 05/14/20 11:28 BP 124/67 05/14/20 11:28 Pulse Ox 93 05/14/20 11:28 05/13/20 05/14/20 05/14/20 22:59 06:59 14:59 Intake Total 360 / 1140 240 / 240 Output Total 0 / 0 Balance 360 / 1140 0 / 1140 240 / 240 Physical Exam Narrative: EXAM NARRATIVE: Awake alert oriented x4. No acute distress. Mood and affect are appropriate. Responses are adequate. Skin is warm and dry. Moist mucous membranes. Eyes PERRLA, extraocular muscles are intact. Normal speech. Neck is supple. No JVD Lungs clear. No wheezes or crackles Heart S1, S2, regular Abdomen is obese, soft, nontender. No rebound or guarding. Bowel sounds are present. Mild bilateral pedal edema. No cyanosis or calf tenderness bilaterally Data : 05/13/20 06:14 05/13/20 06:14 A&P Assessment and plan (1) Atypical chest pain: Patient had severe LV dysfunction and was found to have abnormal stress test. He underwent coronary angiogram on Friday. It did not reveal any significant stenosis. He has nonischemic cardiomyopathy. Symptoms are stable. From cardiac standpoint patient is stable to be discharged. Status: Acute (2) Acute on chronic diastolic (congestive) heart failure: Nonischemic cardiomyopathy. Patient is tolerating the statin and the spironolactone so far well. Patient to be started on Entresto after stopping losartan for 36 hours. Uptitrate carvedilol. Patient will need LifeVest. Cardiac function to be reassessed as outpatient in 3 months for evaluation of permanent defibrillator placement. Status: Acute (3) MARTITA (obstructive sleep apnea): Continue the current management. 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 Advised to continue on the current medications. Status: Chronic (6) Hyperlipidemia: Patient may continue the Lipitor. Status: Chronic Qualifiers: Hyperlipidemia type: unspecified Qualified Code(s): E78.5 - Hyperlipidemia, unspecified (7) Hypothyroidism: Clinically appears to be euthyroid. May continue the current medications. Status: Chronic Qualifiers: Hypothyroidism type: acquired Qualified Code(s): E03.9 - Hypothyroidism, unspecified Additional A&P Information Other problems are as outlined before Recurrent pancreatitis Chronic abdominal pain based on the patient's clinical progress and the results of the above, further management decisions will be made. Attestations Medical Necessity Statement*: Care expected to cross 2 midnights. Coding Level of Care Code Acute Mixer Tender for [facility] Fwd Diagnoses Atypical chest pain R07.89 Acute on chronic diastolic (congestive) heart failure I50.33 MARTITA (obstructive sleep apnea) G47.33 Diabetes mellitus E11.628; Z79.4 Diabetes mellitus type: type 2 Diabetes mellitus long term acute care registered nurse insulin use: with fpc use Diabetes mellitus complication status: with skin complications Diabetes mellitus complication detail: with other skin complication Essential hypertension I10 Hyperlipidemia E78.5 Hyperlipidemia type: unspecified Hypothyroidism E03.9 Hypothyroidism type: acquired
--- NOTE | 2020-05-14 14:38 | P.PN_ITS ---
Subjective Subjective: Interval history: No active complaints. No significant changes. Resting Medications: Reviewed: Yes Medication Review Details: Generic Name Dose Route Start Last Admin Trade Name Freq PRN Reason Stop Dose Admin Hydrocodone Bitart /Acetaminophen 1 tab 05/10/20 12:06 05/13/20 04:00 Hydrocodone-Acet aminophen 5-325 Mg Tablet PO 1 tab Q4H PRN Administration MODERATE PAIN Albuterol Sulfate 2 puff 05/04/20 21:14 05/07/20 08:21 Albuterol 8 Gm M di INHALATION 2 puff Q4H.RESPIRATORY P RN Administration SOB if refuses ne b Aspirin 81 mg 05/10/20 10:00 05/14/20 08:00 Aspirin 81 Mg Ec Tablet PO 81 mg DAILY HINA Administration Atorvastatin Calci um 40 mg 05/10/20 21:00 05/13/20 20:04 Atorvastatin 40 Mg Tablet PO 40 mg BEDTIME HINA Administration Bisacodyl 10 mg 05/02/20 07:33 05/06/20 08:03 Bisacodyl 5 Mg T ablet PO 10 mg DAILY PRN Administration CONSTIPATION Carvedilol 3.125 mg 05/10/20 18:00 05/14/20 08:00 Carvedilol 3.125 Mg Tablet PO 3.125 mg BID HINA Administration Enoxaparin Sodium 40 mg 05/02/20 07:30 05/14/20 07:50 Enoxaparin 40 Mg /0.4 Ml Syringe SUBCUT 40 mg Q24H HINA Administration Famotidine 20 mg 05/04/20 21:00 05/14/20 08:00 Famotidine 20 Mg Tablet PO 20 mg 0900,2100 HINA Administration Furosemide 20 mg 05/12/20 08:00 05/14/20 07:51 Furosemide 20 Mg Tablet PO 20 mg DAILY@0800 HINA Administration Insulin Aspart 0 unit 05/02/20 21:00 05/13/20 20:45 Insulin Aspart 1 00 Unit/1 Ml SUBCUT 3 unit BEDTIME HINA Administration Protocol Insulin Aspart 0 unit 05/02/20 08:00 05/14/20 12:55 Insulin Aspart 1 00 Unit/1 Ml SUBCUT 4 unit TIDWM HINA Administration Protocol Insulin Glargine 25 unit 05/12/20 21:00 05/13/20 20:47 Insulin Glargine 100 Units/1 Ml SUBCUT 25 unit BEDTIME HINA Administration Lanolin 1 applic 05/14/20 05:35 05/14/20 05:53 Lanolin Oint 7 G m TOPICAL 1 applic PRN PRN Administration DRYNESS Levothyroxine Sodi um 200 mcg 05/14/20 06:00 05/14/20 05:27 Levothyroxine 20 0 Mcg Tablet PO 200 mcg QAM HINA Administration Ondansetron HCl 4 mg 05/02/20 04:51 05/11/20 12:52 Ondansetron 2 Mg /Ml Sdv 2 Ml IVP 4 mg Q6H PRN Administration NAUSEA AND VOMITI NG Polyethylene Glyco l 17 gm 05/05/20 18:00 05/14/20 08:03 Polyethylene Gly col 3350 Pkt 17 Gm PO Not Given BID HINA Spironolactone 25 mg 05/12/20 09:00 05/14/20 08:00 Spironolactone 2 5 Mg Tablet PO 25 mg DAILY HINA Administration Vitals/I&O/Wt Last Vital Signs Temp 98.1 F 05/14/20 11:28 Pulse 70 05/14/20 11:28 Resp 18 05/14/20 11:28 BP 124/67 05/14/20 11:28 Pulse Ox 93 05/14/20 11:28 05/13/20 05/14/20 05/14/20 22:59 06:59 14:59 Intake Total 360 / 1140 480 / 480 Output Total 0 / 0 Balance 360 / 1140 0 / 1140 480 / 480 Physical Exam Narrative: EXAM NARRATIVE: Awake alert oriented x4. No acute distress. Mood and affect are appropriate. Responses are adequate. Skin is warm and dry. Moist mucous membranes. Eyes PERRLA, extraocular muscles are intact. Normal speech. Neck is supple. No JVD Lungs clear. No wheezes or crackles Heart S1, S2, regular Abdomen is obese, soft, nontender. No rebound or guarding. Bowel sounds are present. Mild bilateral pedal edema. No cyanosis or calf tenderness bilaterally Data : 05/13/20 06:14 05/13/20 06:14 A&P Assessment and plan (1) Constipation: Patient is complaining of severe constipation and persistent abdominal pain.He think that all the he has some other G/I Cause of abdominal pain and constipation. Lactulose as well as other laxatives were given. Patient was told that if his symptoms doesn't improve then he we can refer him to a GI Specialist.He understands. Repeat C.T abdomen and Pelvis ordered. Status: Acute (2) Acute pancreatitis: Ac Pancreatitis ( Resolved ) Continue IV fluids Carbohydrate consistent diet as tolerated Pain control Status: Acute Qualifiers: Acute pancreatitis complication: no infection or necrosis Pancreatitis type: alcohol induced Qualified Code(s): K85.20 - Alcohol induced acute pancreatitis without necrosis or infection (3) Diabetes mellitus: Type II, insulin requiring Status: Chronic Qualifiers: Diabetes mellitus type: type 2 Diabetes mellitus half-way insulin use: with middle or intermediate school principal use Diabetes mellitus complication status: with skin complications Diabetes mellitus complication detail: with other skin complication Qualified Code(s): E11.628 - Type 2 diabetes mellitus with other skin complications; 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 (4) Left bundle branch block: No prior EKGs for comparison Status: Acute (5) Essential hypertension: Appears well controlled currently Status: Chronic (6) COPD (chronic obstructive pulmonary disease): Not presently acute Status: Chronic Qualifiers: COPD type: emphysema Emphysema type: unspecified Qualified Code(s): J43.9 - Emphysema, unspecified (7) MARTITA (obstructive sleep apnea): Chronically on CPAP Status: Chronic (8) Hyperlipidemia: Chronically on statin Status: Chronic Qualifiers: Hyperlipidemia type: unspecified Qualified Code(s): E78.5 - Hyperlipidemia, unspecified (9) Hypothyroidism: Status: Chronic Qualifiers: Hypothyroidism type: acquired Qualified Code(s): E03.9 - Hypothyroidism, unspecified (10) Left leg swelling: Patient reports chronic in nature without recent change, has associated dermatitis Status: Chronic (11) Nicotine dependence, cigarettes, with other nicotine-induced disorders: Has significantly cut down on amount of smoking Status: Chronic (12) On home oxygen therapy: 3 L by nasal cannula continuous Status: Chronic Additional A&P Information Sliding scale insulin currently Continue albuterol Continue oral levothyroxine CPAP at night with nasal mask Continue home oxygen Pepcid for GI prophylaxis Lovenox for DVT prophylaxis Stool softeners Nicotine patch if needed [place] Abdominal pain. Most likely secondary to acute pancreatitis which was confirmed by CT. ?Chronic pancreatitis. Also, constipation was suspected to be one of the possible explanations. However the pain did not resolve after he had a bowel movement. The pain probably is not related to ventral hernia as well. There is no evidence of complications related to ventral hernia. On examination he has large ventral hernia without incarceration. Appreciate input from Dr. Groves. Probably the patient will have EGD at some point as outpatient if the pain persists to rule out gastritis or peptic ulcer disease. We will continue pain management. Mild acute pancreatitis. Resolved. Currently tolerating diet well. We will continue current management. Possible cirrhosis. CT does not show ascites. He has history of excessive alcohol intake. However currently his alcohol intake is very occasional. Alcohol cessation counseling is provided by me. Chest pain. Left bundle branch block. Mildly elevated troponin. Continue aspirin, statin and beta-bettie. EF is 15%. Abnormal stress test. Cardiac catheterization revealed extensive small vessel coronary artery disease. Nonischemic cardiomyopathy is suspected. Discussed with Dr. Carrion. He recommends stopping Cozaar and initiating Entresto with 36 to 48 hours break in between. LifeVest will be arranged today or as outpatient. Most likely patient will go home tomorrow. Close outpatient follow-up with rejected items clerk. Hypothyroidism. TSH is very elevated. I discussed with the patient. He reports that he only takes his Synthroid once or twice a week. Counseling is provided. He verbalized understanding and agreement. I will not change the dose. His thyroid panel will need to be rechecked in couple of weeks and the dose be adjusted at that time. Constipation. Resolved. Diabetes. Continue current management. Hypertension. Currently well controlled. Continue current management. Obstructive sleep apnea. CPAP as needed. DVT prophylaxis. Lovenox. Discharge plans were discussed with the patient in length. He verbalized understanding and agreement. Discussed with the nursing staff. Attestations Medical Necessity Statement*: The patient does not feel comfortable going home without LifeVest arranged. He lives about 1[place]5 hours away from rejected items clerk office. Once the LifeVest be arranged before his discharge. Most likely home tomorrow after is done. Coding Level of Care Code Acute Mobile Solutions Architect for [facility] Diagnoses Constipation K59.00 Acute pancreatitis K85.20 Acute pancreatitis complication: no infection or necrosis Pancreatitis type: alcohol induced Diabetes mellitus E11.628; Z79.4 Diabetes mellitus type: type 2 Diabetes mellitus half-way insulin use: with half-way use Diabetes mellitus complication status: with skin complications Diabetes mellitus complication detail: with other skin complication Left bundle branch block I44.7 Essential hypertension I10 COPD (chronic obstructive pulmonary disease) J43.9 COPD type: emphysema Emphysema type: unspecified MARTITA (obstructive sleep apnea) G47.33 Hyperlipidemia E78.5 Hyperlipidemia type: unspecified Hypothyroidism E03.9 Hypothyroidism type: acquired Left leg swelling M79.89 Nicotine dependence, cigarettes, with other nicotine-induced disorders F17.218 On home oxygen therapy Z99.81
[2020-05-14 17:12] LABS: Glucose Point of Care 164 mg/dL (70-110)
[2020-05-14] MEDS: sacubitril/valsartan 24-26 mg Tablet 1 EACH PO (19:23)
--- NOTE | 2020-05-14 19:42 | PC.NURSE ---
in preparation for discharge the physician put DC orders in for the patient. [facility] life vest staff informed this nurse that the employee that serves the area in which this hospital resides did not have a life vest for the patient in stock and could not come to fit the patient with one until Friday the in the afternoon. Due to this, the patients discharge orders were left in place but are currently put on hold until tomorrow when the necessary equipment can be provided to the patient so that he can go home.
[2020-05-14 20:32] LABS: Glucose Point of Care 259 mg/dL (70-110)
[2020-05-14] MEDS: atorvastatin 40 mg Tablet PO (21:15)
[2020-05-14] MEDS: insulin glargine 100 units/1 mL 25 UNIT SUBCUT (21:15)
[2020-05-15] VITALS (10 sets, daily range): BP systolic 105–138; BP diastolic 59–68; PULSE 55–66; RESP 16–20; TEMP 36.4–36.7; O2SAT 91–99
[2020-05-15 05:55] LABS: Glucose Point of Care 241 mg/dL (70-110)
[2020-05-15] MEDS: enoxaparin 40 mg/0.4 mL Syringe SUBCUT (06:30)
[2020-05-15] MEDS: levothyroxine 200 mcg Tablet PO (06:30)
[2020-05-15] MEDS: famotidine 20 mg Tablet PO ×2 (09:00→21:58)
[2020-05-15] MEDS: aspirin 81 mg EC Tablet PO (09:00)
[2020-05-15] MEDS: carvedilol 3.125 mg Tablet PO ×2 (09:00→18:34)
[2020-05-15] MEDS: sacubitril/valsartan 24-26 mg Tablet 1 EACH PO ×2 (09:00→18:34)
[2020-05-15] MEDS: spironolactone 25 mg Tablet PO (09:00)
[2020-05-15] MEDS: FUROsemide 20 mg Tablet PO (09:00)
--- NOTE | 2020-05-15 09:41 | PC.NURSE ---
pt reported multiple bowel movements through the night
--- NOTE | 2020-05-15 10:09 | P.PN_ITS ---
Subjective Subjective: Interval history: Patient denies any chest pain or chest tightness. No unusual shortness of breath. Heart failure seems to be compensated. Medications: Reviewed: Yes Medication Review Details: Current Medications Hydrocodone Bitart/Acetaminophen (Hydrocodone-Acetaminophen 5-325 Mg Tablet) 1 tab PO Q4H PRN PRN Reason: MODERATE PAIN Last Admin: 05/13/20 04:00 Dose: 1 tab Documented by: Al Hydrox/Mg Hydrox/Simethicone (Vdue-Rnl-Wedpcybpe-Amber 30 Ml Udc) 15 ml PO Q4H PRN PRN Reason: INDIGESTION Albuterol Sulfate (Albuterol 8 Gm Mdi) 2 puff INHALATION Q4H.RESPIRATORY PRN PRN Reason: SOB if refuses neb Last Admin: 05/07/20 08:21 Dose: 2 puff Documented by: Albuterol/Ipratropium (Ipratropium-Albuterol 3 Ml Neb) 3 ml INHALATION Q6H.RESPIRATORY PRN PRN Reason: SHORTNESS OF BREATH Aspirin (Aspirin 81 Mg Ec Tablet) 81 mg PO DAILY [facility] Last Admin: 05/15/20 09:00 Dose: 81 mg Documented by: Atorvastatin Calcium (Atorvastatin 40 Mg Tablet) 40 mg PO BEDTIME [facility] Last Admin: 05/14/20 21:15 Dose: 40 mg Documented by: Bisacodyl (Bisacodyl 5 Mg Tablet) 10 mg PO DAILY PRN PRN Reason: CONSTIPATION Last Admin: 05/06/20 08:03 Dose: 10 mg Documented by: Carvedilol (Carvedilol 3.125 Mg Tablet) 3.125 mg PO BID [facility] Last Admin: 05/15/20 09:00 Dose: 3.125 mg Documented by: Dextrose (Dextrose 50% Syringe 50 Ml) 25 ml IVP ONCE PRN; Protocol PRN Reason: hypoglycemia protocol Dextrose (Dextrose 50% Syringe 50 Ml) 50 ml IVP PRN PRN; Protocol PRN Reason: hypoglycemia protocol Enoxaparin Sodium (Enoxaparin 40 Mg/0.4 Ml Syringe) 40 mg SUBCUT Q24H [facility] Last Admin: 05/15/20 06:30 Dose: 40 mg Documented by: Famotidine (Famotidine 20 Mg Tablet) 20 mg PO 0900,2100 [facility] Last Admin: 05/15/20 09:00 Dose: 20 mg Documented by: Furosemide (Furosemide 20 Mg Tablet) 20 mg PO DAILY@0800 [facility] Last Admin: 05/15/20 09:00 Dose: 20 mg Documented by: Glucagon (Glucagon 1 Mg/Ml Inj 1 Ml) 1 mg IM ONCE PRN; Protocol PRN Reason: Adult Acute Hypoglycemia Prot. Dextrose (D5w) 500 mls @ 100 mls/hr IV ONCE PRN; Protocol PRN Reason: Adult Acute Hypoglycemia Prot Insulin Aspart (Insulin Aspart 100 Unit/1 Ml) 0 unit SUBCUT BEDTIME [facility]; [place] col Last Admin: 05/14/20 21:15 Dose: 3 unit Documented by: Insulin Aspart (Insulin Aspart 100 Unit/1 Ml) 0 unit SUBCUT TIDWM [facility]; Protocol Last Admin: 05/15/20 09:00 Dose: 6 unit Documented by: Insulin Glargine (Insulin Glargine 100 Units/1 Ml) 35 unit SUBCUT BEDTIME [facility] Lanolin (Lanolin Oint 7 Gm) 1 applic TOPICAL PRN PRN PRN Reason: DRYNESS Last Admin: 05/14/20 05:53 Dose: 1 applic Documented by: Levothyroxine Sodium (Levothyroxine 200 Mcg Tablet) 200 mcg PO QAM [facility] Last Admin: 05/15/20 06:30 Dose: 200 mcg Documented by: Magnesium Hydroxide (Magnesium Hydroxide 30 Ml Udc) 15 ml PO BEDTIME PRN PRN Reason: CONSTIPATION Nicotine (Nicotine 14 Mg Patch) 1 patch TRANSDERMA DAILY PRN PRN Reason: nicotine withdrawal Ondansetron HCl (Ondansetron 2 Mg/Ml Sdv 2 Ml) 4 mg IVP Q6H PRN PRN Reason: NAUSEA AND VOMITING Last Admin: 05/11/20 12:52 Dose: 4 mg Documented by: Ondansetron HCl (Ondansetron 2 Mg/Ml Sdv 2 Ml) 4 mg IVP Q2M PRN PRN Reason: NAUSEA Polyethylene Glycol (Polyethylene Glycol 3350 Pkt 17 Gm) 17 gm PO BID [facility] Last Admin: 05/15/20 10:08 Dose: Not Given Documented by: Sacubitril/Valsartan (Sacubitril/Valsartan 24-26 Mg Tablet) 1 each PO BID [facility] Last Admin: 05/15/20 09:00 Dose: 1 each Documented by: Sodium Phosphate (Fleet Enema 133 Ml Enema) 133 ml MS DAILY PRN PRN Reason: CONSTIPATION Spironolactone (Spironolactone 25 Mg Tablet) 25 mg PO DAILY [facility] Last Admin: 05/15/20 09:00 Dose: 25 mg Documented by: Vitals/I&O/Wt Last Vital Signs Temp 97.9 F 05/15/20 07:22 Pulse 66 05/15/20 08:31 Resp 18 05/15/20 08:31 BP 138/68 05/15/20 07:22 Pulse Ox 96 05/15/20 08:31 05/14/20 05/15/20 05/15/20 22:59 06:59 14:59 Intake Total 340 / 820 920 / 1740 300 / 300 Balance 340 / 820 920 / 1740 300 / 300 Physical Exam Narrative: EXAM NARRATIVE: GENERAL: The patient is alert and oriented times three. Not in any acute distress. Moderately obese HEENT: No significant pallor, icterus or lymphadenopathy. Pupils are symmetrical in size. There are no mucous membrane lesions. NECK: Trachea appears to be central. No masses noted. No JVD or thyromegaly appreciated. No carotid bruit. RESPIRATORY: Chest is symmetrical. No intercostals muscle retraction or any accessory muscle activation. There is no chest wall tenderness. Breath sounds are heard bilaterally. No rales or rhonchi heard. No evidence of any consolidation. Density of the breath sounds are diminished in the bases. BREASTS: Deferred. HEART: The PMI could not be palpated. No palpable precordial events. S1 and S2 are normal. No S3 or S4 heard. No pericardial rub or any click heard. ABDOMEN: No vessel pulsations or distention. No tenderness. No organomegaly appreciated. No abdominal bruit. Bowel sounds are normally heard. : Deferred. EXTREMITIES: No edema cyanosis MUSCULOSKELETAL: No acute joint deformities or swelling SKIN: Hyperpigmentation with this healed skin superficial skin ulcers in the left lower extremity NEUROPSYCHIATRIC: The patient is alert and oriented x3. No focal motor deficits Const: COMMON NORMALS: alert Resp: COMMON NORMALS: clear to auscultation bilaterally AUSCULTATION: clear to auscultation bilaterally Neuro: SENSORIUM/ORIENTATION: Yes alert Data : 05/13/20 06:14 05/13/20 06:14 A&P Assessment and plan (1) Chronic systolic heart failure: Patient has nonischemic cardiomyopathy congestive heart failure. He was started on Entresto. Seems to be at tolerating medication so far well. May continue on the current medications. Status: Acute (2) Atypical chest pain: Patient has no significant coronary disease. Since his symptoms are atypical and stable, may not require any further investigations at this point. Status: Acute (3) MARTITA (obstructive sleep apnea): Continue the current management. 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 Advised to continue on the current medications. Status: Chronic (6) Hyperlipidemia: Patient may continue the Lipitor. Status: Chronic Qualifiers: Hyperlipidemia type: unspecified Qualified Code(s): E78.5 - Hyperlipidemia, unspecified (7) Hypothyroidism: Clinically appears to be euthyroid. May continue the current medications. Status: Chronic Qualifiers: Hypothyroidism type: acquired Qualified Code(s): E03.9 - Hypothyroidism, unspecified Additional A&P Information Other problems are as outlined before Recurrent pancreatitis Chronic abdominal pain Patient requires a LifeVest. Hopefully he will have it today. Since his cardiac status seems to be stable otherwise, may be discharged home from a cardiac standpoint. 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 for [facility] Fwd Exam Expanded Problem Focused Diagnoses Chronic systolic heart failure I50.22 Atypical chest pain R07.89 MARTITA (obstructive sleep apnea) G47.33 Diabetes mellitus E11.628; Z79.4 Diabetes mellitus complication detail: with other skin complication Diabetes mellitus complication status: with skin complications Diabetes mellitus skilled nursing insulin use: with long term acute care registered nurse use Diabetes mellitus type: type 2 Essential hypertension I10 Hyperlipidemia E78.5 Hyperlipidemia type: unspecified Hypothyroidism E03.9 Hypothyroidism type: acquired
--- NOTE | 2020-05-15 10:15 | PC.SOCIAL ---
IMM Updated Updated pt on Pg 2 IMM. No questions voiced. Provided pt a copy. Signed, dated, & timed copy in chart.
[2020-05-15 10:52] LABS: Glucose Point of Care 360 mg/dL (70-110)
--- NOTE | 2020-05-15 11:33 | P.PN_ITS ---
Subjective Subjective: Interval history: No new issues. No pain or shortness of breath. Just waiting for the LifeVest. Medications: Reviewed: Yes Vitals/I&O/Wt Last Vital Signs Temp 97.9 F 05/16/20 08:00 Pulse 71 05/16/20 09:03 Resp 18 05/16/20 09:03 BP 97/57 05/16/20 08:00 Pulse Ox 98 05/16/20 09:03 05/15/20 05/16/20 05/16/20 22:59 06:59 14:59 Intake Total 400 / 1000 240 / 240 Output Total 0 / 0 Balance 400 / 1000 240 / 240 Physical Exam Narrative: EXAM NARRATIVE: Awake alert oriented. Walking in the hallways. No acute distress. No shortness of breath. Skin is warm and dry. Data : 05/13/20 06:14 05/13/20 06:14 A&P Assessment and plan (1) Constipation: Patient is complaining of severe constipation and persistent abdominal pain.He think that all the he has some other G/I Cause of abdominal pain and constipation. Lactulose as well as other laxatives were given. Patient was told that if his symptoms doesn't improve then he we can refer him to a GI Specialist.He understands. Repeat C.T abdomen and Pelvis ordered. Status: Acute (2) Acute pancreatitis: Ac Pancreatitis ( Resolved ) Continue IV fluids Carbohydrate consistent diet as tolerated Pain control Status: Acute Qualifiers: Acute pancreatitis complication: no infection or necrosis Pancreatitis type: alcohol induced Qualified Code(s): K85.20 - Alcohol induced acute pancreatitis without necrosis or infection (3) Diabetes mellitus: Type II, insulin requiring Status: Chronic Qualifiers: Diabetes mellitus type: type 2 Diabetes mellitus terminal make up operator insulin use: with terminal make up operator use Diabetes mellitus complication status: with skin complications Diabetes mellitus complication detail: with other skin complication Qualified Code(s): E11.628 - Type 2 diabetes mellitus with other skin complications; Z79.4 - residential (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 of insulin (4) Left bundle branch block: No prior EKGs for comparison Status: Acute (5) Essential hypertension: Appears well controlled currently Status: Chronic (6) COPD (chronic obstructive pulmonary disease): Not presently acute Status: Chronic Qualifiers: COPD type: emphysema Emphysema type: unspecified Qualified Code(s): J43.9 - Emphysema, unspecified (7) MARTITA (obstructive sleep apnea): Chronically on CPAP Status: Chronic (8) Hyperlipidemia: Chronically on statin Status: Chronic Qualifiers: Hyperlipidemia type: unspecified Qualified Code(s): E78.5 - Hyperlipidemia, unspecified (9) Hypothyroidism: Status: Chronic Qualifiers: Hypothyroidism type: acquired Qualified Code(s): E03.9 - Hypothyroidism, unspecified (10) Left leg swelling: Patient reports chronic in nature without recent change, has associated dermatitis Status: Chronic (11) Nicotine dependence, cigarettes, with other nicotine-induced disorders: Has significantly cut down on amount of smoking Status: Chronic (12) On home oxygen therapy: 3 L by nasal cannula continuous Status: Chronic Additional A&P Information Sliding scale insulin currently Continue albuterol Continue oral levothyroxine CPAP at night with nasal mask Continue home oxygen Pepcid for GI prophylaxis Lovenox for DVT prophylaxis Stool softeners Nicotine patch if needed [place] Abdominal pain. Most likely secondary to acute pancreatitis which was confirmed by CT. ?Chronic pancreatitis. Also, constipation was suspected to be one of the possible explanations. However the pain did not resolve after he had a bowel movement. The pain probably is not related to ventral hernia as well. There is no evidence of complications related to ventral hernia. On examination he has large ventral hernia without incarceration. Appreciate input from Dr. Groves. Probably the patient will have EGD at some point as outpatient if the pain persists to rule out gastritis or peptic ulcer disease. We will continue pain management. Mild acute pancreatitis. Resolved. Currently tolerating diet well. We will continue current management. Possible cirrhosis. CT does not show ascites. He has history of excessive alcohol intake. However currently his alcohol intake is very occasional. Alcohol cessation counseling is provided by me. Chest pain. Left bundle branch block. Mildly elevated troponin. Continue aspirin, statin and beta-bettie. EF is 15%. Abnormal stress test. Cardiac catheterization revealed extensive small vessel coronary artery disease. Nonischemic cardiomyopathy is suspected. Discussed with Dr. Carrion. He recommends stopping Cozaar and initiating Entresto with 36 to 48 hours break in between. LifeVest will be arranged today or as outpatient. Most likely patient will go home tomorrow. Close outpatient follow-up with multi operation machine operator. Hypothyroidism. TSH is very elevated. I discussed with the patient. He reports that he only takes his Synthroid once or twice a week. Counseling is provided. He verbalized understanding and agreement. I will not change the dose. His thyroid panel will need to be rechecked in couple of weeks and the dose be adjusted at that time. Constipation. Resolved. Diabetes. Continue current management. Hypertension. Currently well controlled. Continue current management. Obstructive sleep apnea. CPAP as needed. DVT prophylaxis. Lovenox. Discussed with the nursing staff. Attestations Medical Necessity Statement*: Hopefully home soon Coding Level of Care Code Acute Instructional Coordinator for [facility] Fwd Diagnoses Constipation K59.00 Acute pancreatitis K85.20 Acute pancreatitis complication: no infection or necrosis Pancreatitis type: alcohol induced Diabetes mellitus E11.628; Z79.4 Diabetes mellitus type: type 2 Diabetes mellitus care home insulin use: with terminal make up operator use Diabetes mellitus complication status: with skin complications Diabetes mellitus complication detail: with other skin complication Left bundle branch block I44.7 Essential hypertension I10 COPD (chronic obstructive pulmonary disease) J43.9 COPD type: emphysema Emphysema type: unspecified MARTITA (obstructive sleep apnea) G47.33 Hyperlipidemia E78.5 Hyperlipidemia type: unspecified Hypothyroidism E03.9 Hypothyroidism type: acquired Left leg swelling M79.89 Nicotine dependence, cigarettes, with other nicotine-induced disorders F17.218 On home oxygen therapy Z99.81
[2020-05-15 16:25] LABS: Glucose Point of Care 174 mg/dL (70-110)
--- NOTE | 2020-05-15 16:26 | PC.NURSE ---
pt very anxious about getting life vest and getting discharged. pt updated this AM that as soon as the vest is delivered it will placed on, and he will be discharged. Reiterated that there is no new update, and we are still waiting for the vest to be delivered
--- NOTE | 2020-05-15 18:41 | PC.NURSE ---
Talked to clinic charge nurse about patient staying overnight. The life vest would not be able to be applied until 1999 tonight. The patient is agreeable to staying in the hospital. Discharged canceled per dr. Knowles
[2020-05-15 21:55] LABS: Glucose Point of Care 243 mg/dL (70-110)
[2020-05-15] MEDS: atorvastatin 40 mg Tablet PO (21:58)
[2020-05-15] MEDS: insulin glargine 100 units/1 mL 35 UNIT SUBCUT (21:59)
[2020-05-16] VITALS (8 sets, daily range): BP systolic 97–120; BP diastolic 53–70; PULSE 63–76; RESP 18–20; TEMP 36.4–36.8; O2SAT 90–99
[2020-05-16] MEDS: levothyroxine 200 mcg Tablet PO (06:29)
[2020-05-16] MEDS: enoxaparin 40 mg/0.4 mL Syringe SUBCUT (06:29)
[2020-05-16 06:48] LABS: Glucose Point of Care 224 mg/dL (70-110)
[2020-05-16] MEDS: famotidine 20 mg Tablet PO (08:23)
[2020-05-16] MEDS: FUROsemide 20 mg Tablet PO (08:23)
[2020-05-16] MEDS: spironolactone 25 mg Tablet PO (08:23)
[2020-05-16] MEDS: carvedilol 3.125 mg Tablet PO (08:23)
[2020-05-16] MEDS: sacubitril/valsartan 24-26 mg Tablet 1 EACH PO (08:23)
[2020-05-16] MEDS: aspirin 81 mg EC Tablet PO (08:23)
[2020-05-16 11:27] LABS: Glucose Point of Care 272 mg/dL (70-110)
--- NOTE | 2020-05-16 11:35 | P.DS_ITS ---
Discharge Providers Date of Admission: 05/10/20 14:57 Date of Discharge: May 16, 2020 Attending Provider at Admission: Denae Moran MD Attending Provider at Discharge: Rudy Combs Primary Care Provider: Thomas Juarez Diagnoses at Discharge Discharge Diagnosis (1) Constipation: Status: Acute (2) Acute pancreatitis: Status: Acute Qualifiers: Acute pancreatitis complication: no infection or necrosis Pancreatitis type: alcohol induced Qualified Code(s): K85.20 - Alcohol induced acute pancreatitis without necrosis or infection (3) Diabetes mellitus: Status: Chronic Qualifiers: Diabetes mellitus type: type 2 Diabetes mellitus jail insulin use: with manager long term care use Diabetes mellitus complication status: with skin complications Diabetes mellitus complication detail: with other skin compl ication Qualified Code(s): E11.628 - Type 2 diabetes mellitus with other skin complications; Z79.4 - intermediate manager (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 of insulin (4) Left bundle branch block: Status: Acute (5) Essential hypertension: Status: Chronic (6) COPD (chronic obstructive pulmonary disease): Status: Chronic Qualifiers: COPD type: emphysema Emphysema type: unspecified Qualified Code(s): J43.9 - Emphysema, unspecified (7) MARTITA (obstructive sleep apnea): Status: Chronic Permanent problem details: On CPAP (8) Hyperlipidemia: Status: Chronic Qualifiers: Hyperlipidemia type: unspecified Qualified Code(s): E78.5 - Hyperlipidemia, unspecified (9) Hypothyroidism: Status: Chronic Qualifiers: Hypothyroidism type: acquired Qualified Code(s): E03.9 - Hypothyroidism, unspecified (10) Left leg swelling: Status: Chronic (11) Nicotine dependence, cigarettes, with other nicotine-induced disorders: Status: Chronic (12) On home oxygen therapy: Status: Chronic Permanent problem details: 3L [facility] Reason for Visit Reason for Visit: ABDOMINAL PAIN/ NAUSEA Hospital Course Hospital Course Discharge diagnosis and problem list Please see patient's H&P, consult notes, progress notes, and procedure notes for more details. Abdominal pain. Most likely secondary to acute pancreatitis which was confirmed by CT. The pain probably is not related to ventral hernia as well. There is no evidence of complications related to ventral hernia. On examination he has large ventral hernia without incarceration. Appreciate input from Dr. Groves. Probably the patient will have EGD at some point as outpatient if the pain persists to rule out gastritis or peptic ulcer disease. Mild acute pancreatitis. Resolved. Currently tolerating diet well. We will continue current management. Possible cirrhosis. CT does not show ascites. He has history of excessive alcohol intake. However currently his alcohol intake is very occasional. Alcohol cessation counseling is provided by me. Chest pain. Left bundle branch block. Mildly elevated troponin. Continue aspirin, statin and beta-bettie. EF is 15%. Abnormal stress test. Cardiac catheterization revealed extensive small vessel coronary artery disease. Nonischemic cardiomyopathy is suspected. Entresto is initiated. LifeVest will be arranged today before discharge. Close outpatient follow-up with electronic train control technician. Severe cardiomyopathy. Probably nonischemic. See above. Continue current management and close outpatient cardiology follow-up. Hypothyroidism. TSH is very elevated. I discussed with the patient. He reports that he only takes his Synthroid once or twice a week. Counseling is provided. He verbalized understanding and agreement. I will not change the dose. His thyroid panel will need to be rechecked in couple of weeks and the dose be adjusted at that time. Constipation. Resolved. Diabetes. Continue current management. Hypertension. Currently well controlled. Continue current management. Obstructive sleep apnea. CPAP as needed. DVT prophylaxis. Received Lovenox. Discharge plans were discussed with the patient in length. He verbalized understanding and agreement. Currently the patient is doing well. Denies any active complaints. Denies chest pain or shortness of breath. Eager to go home. He is instructed to come back to emergency room if he develops any of the above complaints or any other new symptoms. Physical Exam Narrative: EXAM NARRATIVE: The patient is awake alert oriented. No acute distress. Mood and affect are appropriate. Skin is warm and dry. Moist mucous membranes. No JVD. Lungs are clear. No respiratory distress. No peripheral cyanosis. No calf tenderness bilaterally. Discharge Data Data Completed and Pending: Completed Studies During Hospitalization Category Date Time Status CT abdomen pelvis wo con [id number] Rout ine Cat Scan 05/07/20 19:[address] abdomen pelvis wo con [id number] Stat Cat Scan 05/02/20 03:57 Completed GUEST SERVICE MANAGER request for service Routin e Exams 05/12/20 15:00 Completed Sestamibi Stress Test Request Routi ne Exams 05/11/20 06:23 Draft NM selvin perf SPECT r/s* [id number] Routin e Nuc Med 05/11/20 00:08 Completed CV echo complete* [id number] Routine Ultrasound 05/11/20 09:40 Completed Labs from last 24 hours 05/16/20 05/16/20 05/15/20 10:45 06:26 21:51 POC Glucose 272 H 224 H 243 H 05/15/20 16:21 POC Glucose 174 H Vitals: Last Vital Signs Temp 97.9 F 05/16/20 08:00 Pulse 71 05/16/20 09:03 Resp 18 05/16/20 09:03 BP 97/57 05/16/20 08:00 Pulse Ox 98 05/16/20 09:03 Discharge Plan Discharge Patient Disposition: Home Condition: Stable Prescriptions: New atorvastatin 40 mg Tablet 40 mg PO BEDTIME Qty: 30 RF: 0 aspirin 81 mg Tablet,Delayed Release (Dr/Ec) 81 mg PO DAILY Qty: 30 RF: 0 nicotine 14 mg/24 hr Patch 24 Hour 1 patch transdermal DAILY PRN (Reason: nicotine withdrawal) Qty: 14 RF: 0 carvedilol 3.125 mg Tablet 3.125 mg PO BID Qty: 60 RF: 0 furosemide 20 mg Tablet 20 mg PO DAILY@0800 Qty: 30 RF: 0 spironolactone 25 mg Tablet 25 mg PO DAILY Qty: 30 RF: 0 Entresto 24-26 mg Tablet 1 ea PO BID Qty: 60 RF: 0 Continued cyanocobalamin (vitamin B-12) 500 mcg tablet See Rx Instructions .ROUTE .COMPLEX RF: 0 albuterol sulfate [ProAir HFA] 90 mcg/actuation HFA aerosol inhaler 2 puff inhalation QID PRN (Reason: Shortness Of Breath) RF: 0 levothyroxine 200 mcg capsule 200 mcg PO QAM RF: 0 Lantus Solostar U-100 Insulin 100 unit/mL (3 mL) insulin pen 45 unit SUBCUT BEDTIME RF: 0 Stiolto Respimat 2.5-2.5 mcg/actuation mist 2 puff inhalation DAILY Qty: 4 RF: 3 Vitamin C 1 tab PO DAILY RF: 0 Discontinued albuterol sulfate 2.5 mg /3 mL (0.083 %) solution for nebulization 2.5 mg inhalation QID PRN (Reason: Shortness Of Breath) RF: 0 metformin 500 mg tablet See Rx Instructions .ROUTE .COMPLEX RF: 0 lisinopril-hydrochlorothiazide 20-12.5 mg tablet 1 tab PO QAM RF: 0 atorvastatin [Lipitor] 20 mg tablet 20 mg PO QAM RF: 0 acetaminophen [Tylenol Extra Strength] 500 mg Tablet 1,000 mg PO PRN RF: 0 Discharge Orders: Discharge Order (Routine); Ordered 05/16/20 Ordered By: Rudy Combs Other Ambulatory Orders: Basic Metabolic Panel (Routine) Timeframe: 1 Week Facility: [facility] - Location: Lab - Main Lab Ordered By: Rudy Combs Complete Blood Count w/Auto (Routine) Timeframe: 1 Week Location: Determined by Patient Ordered By: Rudy Combs Thyroid Stimulating Hormone (Routine) Timeframe: 2 Weeks Facility: [facility] - Location: Lab - Main Lab Ordered By: Rudy Combs Referrals: [facility] [Outside] Kam Ge MD [Physician] - 05/22/20 11:00 am (Please call Friday to schedudle a follow up appointment. LifeVest) Thomas Juarez [Primary Care Provider] - 05/22/20 1:45 pm (Please call and make a follow up appointment on Friday. Ask your doctor to recheck your blood test results, chemistry panel, thyroid hormone levels in 1 week. Adjustments to your medications might be necessary APPOINTMENT AT [facility] WITH DR THOMAS JUAREZ) Ron Groves MD [Physician] - 2 weeks Discharge Diet: Cardiac and Low Fat Discharge Activity: Increase activity as tolerated Patient Instructions: Spironolactone (By mouth), Furosemide (By mouth), Aspirin (By mouth), Nicotine (Absorbed through the skin), Atorvastatin (By mouth), Carvedilol (By mouth), Myocardial Infarction (DC), Heart Failure (DC), Chest Pain (GEN), Hypothyroidism (DC), Heart Block (GEN), CHF Stoplight, Chest Pain Stoplight, Pancreatitis Activity Restrictions/Additional Instructions: Please follow-up with your primary care provider and your electronic train control technician as instructed. You need to undergo additional follow-up tests which are very important. Please come back to emergency room if you develop any chest pain, abdominal pain, dizziness or lightheadedness, shortness of breath, palpitations, weakness, or any other new complaints. Please do not smoke cigarettes anymore. Discharge Attestations Time Spent in Discharge Care*: greater than 30 min Quality Metrics Clinical Quality Measures During this hospital stay, did patient experience: None Coding Level of Care Code Acute Chg FW DC note Diagnoses Constipation K59.00 Acute pancreatitis K85.20 Acute pancreatitis complication: no infection or necrosis Pancreatitis type: alcohol induced Diabetes mellitus E11.628; Z79.4 Diabetes mellitus type: type 2 Diabetes mellitus jail insulin use: with manager long term care use Diabetes mellitus complication status: with skin complications Diabetes mellitus complication detail: with other skin complication Left bundle branch block I44.7 Essential hypertension I10 COPD (chronic obstructive pulmonary disease) J43.9 COPD type: emphysema Emphysema type: unspecified MARTITA (obstructive sleep apnea) G47.33 Hyperlipidemia E78.5 Hyperlipidemia type: unspecified Hypothyroidism E03.9 Hypothyroidism type: acquired Left leg swelling M79.89 Nicotine dependence, cigarettes, with other nicotine-induced disorders F17.218 On home oxygen therapy Z99.81
--- NOTE | 2020-05-16 16:38 | PC.NURSE ---
BACILIO FROM RESEARCH AFFILIATE BROUGHT PATIENT'S LIFE VEST. WENT OVER EVERYTHING WITH PATIENT. THIS NURSE WENT OVER PATIENT'S DISCHARGE. ALL QUESTIONS ANSWERED. IV REMOVED.
== END 2020-05-16 16:39 | disposition home or self-care (01) | DRG 438 ==
LOC: ER 04:50 → MEDSURG 05:03 → ICU 05-12 16:13 → MEDSURG 05-12 22:49
PROVIDERS: Internal Medicine; Internal Medicine Cardiovascular Disease; Admitting Provider Hospitalist; Emergency Provider Emergency Medicine; PCP Physician Assistant Medical; Visit Provider Internal Medicine
PROC: 4A023N7 Measurement of Cardiac Sampling and Pressure, Left Heart, Percutaneous Approach (ICD-10-PCS; principal; 2020-05-12 15:00)
DX: K85.20 Alcohol induced acute pancreatitis without necrosis or infection (principal); I50.33 Acute on chronic diastolic (congestive) heart failure; I42.8 Other cardiomyopathies; F10.20 Alcohol dependence, uncomplicated; J43.9 Emphysema, unspecified; E11.9 Type 2 diabetes mellitus without complications; I11.0 Hypertensive heart disease with heart failure; E78.5 Hyperlipidemia, unspecified; E03.9 Hypothyroidism, unspecified; Z99.81 Dependence on supplemental oxygen; G47.33 Obstructive sleep apnea (adult) (pediatric); F17.210 Nicotine dependence, cigarettes, uncomplicated; I44.7 Left bundle-branch block, unspecified; L30.9 Dermatitis, unspecified; K43.9 Ventral hernia without obstruction or gangrene; M79.89 Other specified soft tissue disorders; K59.00 Constipation, unspecified; K70.30 Alcoholic cirrhosis of liver without ascites; R07.89 Other chest pain; Z79.51 Long term (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 of inhaled steroids; K86.0 Alcohol-induced chronic pancreatitis
CPT/HCPCS: 36415; 36416; 74176; 78452; 80053; 80061; 81001; 82962; 83036; 83690; 83735; 83880; 84100; 84443; 84484; 85025; 85610; 85730; 93005; 93017; 93306; 93452; 94640; 94660; 96372; A9500; C1769; C1887; C1894; G0378; J1644; J1650; J1815 ×2; J2250; J2270; J2405; J2785; J3010; J3490; J3535; J7030; J7040; Q9967

== ENCOUNTER → 2020-05-30 15:15 | Outpatient (BNVA) | payer MEDICARE, SELFPAY | PROVIDERS: PCP Physician Assistant Medical; Visit Provider Internal Medicine Cardiovascular Disease | DX: R06.02 Shortness of breath (principal); I50.33 Acute on chronic diastolic (congestive) heart failure | CPT/HCPCS: 80048; 83880 ==

== ENCOUNTER → 2020-07-27 13:36 | Outpatient (BNVA) | payer MEDICARE, SELFPAY | PROVIDERS: PCP Physician Assistant Medical; Visit Provider Internal Medicine Cardiovascular Disease | DX: I11.0 Hypertensive heart disease with heart failure (principal); I42.0 Dilated cardiomyopathy; I50.22 Chronic systolic (congestive) heart failure; I44.7 Left bundle-branch block, unspecified; E11.628 Type 2 diabetes mellitus with other skin complications; Z79.4 Long term (current) use of insulin; J43.9 Emphysema, unspecified; G47.33 Obstructive sleep apnea (adult) (pediatric); F17.218 Nicotine dependence, cigarettes, with other nicotine-induced disorders | CPT/HCPCS: 80048; 83735; 83880 ==

== ENCOUNTER 2020-08-11 14:41 | Outpatient (CLI) | payer MEDICARE, SELFPAY ==
--- NOTE | 2020-08-11 15:00 | USCV_ITS ---
Amanuel Restrepo Age: 60 Gender: M : 1960 Exam Date: 08/11/2020 15:05 Ordering Phys: Prachi Sheldon MD ([email or web address]) Technologist: [email or web address] [place] [facility] [place]: CHF BP: 135 / 72 HR: Rhythm: Sinus Technical Quality: Fair MEASUREMENTS (Male / Female) Normal Values 2D ECHO LV Diastolic Diameter PLAX 6.2 cm 4.2 - 5.9 / 3.9 - 5.3 cm LV Systolic Diameter PLAX 4.7 cm IVS Diastolic Thickness 1.6 cm 0.6 - 1.0 / 0.6 - 0.9 cm IVS Systolic Thickness 2.1 cm LVPW Diastolic Thickness 1.0 cm 0.6 - 1.0 / 0.6 - 0.9 cm LVPW Systolic Thickness 1.1 cm LVOT Diameter 2.1 cm LV Ejection Fraction 2D Teich 49.3 % LV Ejection Fraction MOD 2C 29.7 % LV Ejection Fraction 2C AL 30.0 % LA Width 2.6 cm LA Height 4.8 cm RA Width 3.1 cm RA Height 4.2 cm Aorta at Sinotubular Diameter 3.1 cm FINDINGS Left Ventricle Dilated left ventricular cavity. Severely decreased left ventricular systolic function. Left ventricular ejection fraction is estimated at 25-30 %. Severe global hypokinesis with dyskinetic apex. Abnormal septal motion consistent with conduction abnormality. Right Ventricle Normal right ventricular size and systolic function. Right Atrium Right atrium not well visualized. Normal right atrial size. Left Atrium Normal left atrial size. Mitral Valve Structurally normal mitral valve. Aortic Valve Aortic valve not well visualized. Tricuspid Valve Tricuspid valve not well visualized. Pulmonic Valve Pulmonic valve not well visualized. Pericardium No pericardial effusion. Aorta Aorta not well visualized. CONCLUSIONS 1. This is a technically difficult and limited study. 2. Dilated left ventricular cavity. Severely decreased left ventricular systolic function. Left ventricular ejection fraction is estimated at 25-30 %. Severe global hypokinesis with dyskinetic apex. 3. No significant change when compared to old study dated 05/11/2020. Prachi Sheldon MD (Electronically Signed) Final Date: 12 August 2020 11:17 S
== END 2020-08-11 14:42 | disposition home or self-care (01) ==
LOC: RAD 14:46
PROVIDERS: PCP Physician Assistant Medical; Visit Provider Internal Medicine Cardiovascular Disease
DX: I50.22 Chronic systolic (congestive) heart failure (principal)
CPT/HCPCS: 93308

== ENCOUNTER 2020-12-22 12:56 | Outpatient (CLI) | payer MEDICARE, SELFPAY ==
--- NOTE | 2020-12-22 13:30 | USCV_ITS ---
Amanuel Restrepo Age: 60 Gender: M : 1960 Exam Date: 12/22/2020 13:43 Ordering Phys: Prachi Sheldon MD ([email or web address]) Technologist: Luis Arenas [place]am [place] [facility] [place]ication: Low EF, eval LVF BP: 140 / 86 HR: 100 Rhythm: Other Technical Quality: Adequate MEASUREMENTS (Male / Female) Normal Values 2D ECHO LV Diastolic Diameter PLAX 6.6 cm 4.2 - 5.9 / 3.9 - 5.3 cm LV Systolic Diameter PLAX 6.1 cm IVS Diastolic Thickness 1.6 cm 0.6 - 1.0 / 0.6 - 0.9 cm IVS Systolic Thickness 1.9 cm LVPW Diastolic Thickness 1.5 cm 0.6 - 1.0 / 0.6 - 0.9 cm LVPW Systolic Thickness 1.9 cm LV Ejection Fraction 2D Teich 1.7 % LV Ejection Fraction MOD 2C 38.2 % LV Ejection Fraction 2C AL 38.9 % FINDINGS Left Ventricle Mildly dilated left ventricular cavity size. Moderately decreased left ventricular systolic function. Left ventricular ejection fraction is estimated at 35 %. Moderate global hypokinesis. Abnormal septal motion consistent with conduction abnormality. Right Ventricle Normal right ventricular size and systolic function. Right Atrium Normal right atrial size. Left Atrium Mildly increased left atrial size. Mitral Valve Mildly thickened mitral valve. Aortic Valve Aortic valve not well visualized. Tricuspid Valve Tricuspid valve not well visualized. Pulmonic Valve Pulmonic valve not well visualized. Pericardium No pericardial effusion. Aorta Aorta not well visualized. CONCLUSIONS 1. This is a limited echocardiogram. 2. Mildly dilated left ventricular cavity size. Moderately decreased left ventricular systolic function. Left ventricular ejection fraction is estimated at 35 %. Moderate global hypokinesis. Abnormal septal motion consistent with conduction abnormality. 3. When compared to previous echocardiogram dated 08/11/2020, left ventricular systolic function seems to have improved. Prachi Sheldon MD (Electronically Signed) Final Date: 25 December 2020 22:23 S
== END 2020-12-22 12:57 | disposition home or self-care (01) ==
LOC: RAD 12:58
PROVIDERS: Visit Provider Internal Medicine Cardiovascular Disease
DX: R06.00 Dyspnea, unspecified (principal); R22.42 Localized swelling, mass and lump, left lower limb
CPT/HCPCS: 93308

== ENCOUNTER → 2021-02-16 11:00 | Outpatient (BNVA) | payer MEDICARE, SELFPAY | PROVIDERS: Visit Provider Emergency Medicine | DX: N39.0 Urinary tract infection, site not specified (principal) | CPT/HCPCS: 81000 ==

== ENCOUNTER → 2021-04-09 11:49 | Outpatient (BNVA) | payer MEDICARE, SELFPAY | PROVIDERS: Visit Provider Family Medicine | DX: M17.12 Unilateral primary osteoarthritis, left knee (principal); E03.9 Hypothyroidism, unspecified; E78.5 Hyperlipidemia, unspecified; I10 Essential (primary) hypertension; Z79.4 Long term (current) use of insulin; E11.628 Type 2 diabetes mellitus with other skin complications | CPT/HCPCS: 73562; 80053; 80061; 83036; 84439; 84443; 84481 ==